=== PATIENT | male | born 1950 | race Caucasian/White ===

== ENCOUNTER 2023-04-29 10:07 | Emergency (ER) | payer OTHER, SELFPAY ==
[2023-04-29 10:08] VITALS: BP 169/56; PULSE 63; RESP 18; TEMP 36.5; O2SAT 98; BMI 28.1
--- NOTE | 2023-04-29 10:19 | CT_ITS ---
STUDY: CT ABDOMEN AND PELVIS WITH CONTRAST REASON FOR EXAM: Male, 72 years old. Rectal bleeding RADIATION DOSAGE (If Supplied By Facility): CTDIvol = ( 16.82 ) mGy, DLP = ( 911.56 ) mGycm TECHNIQUE: Transaxial images were obtained from the dome of the diaphragm to the symphysis pubis without oral contrast. IV 100mL Isovue-300 was administered. Sagittal and coronal images were reconstructed. Individualized dose optimization techniques were used for this CT. COMPARISON: None. FINDINGS: The visualized lung bases are unremarkable. Coronary calcification. Normal liver. Normal gallbladder and extrahepatic biliary system. Normal spleen. Normal pancreas. Normal bilateral adrenal glands. There is a 1.8 cm cyst in the upper pole of the right kidney. Punctate nonobstructive calculus is seen in the mid pole calyx of the right kidney posteriorly. There is a 4.1 cm cyst in the inferior pole of the right kidney. 1 cm cyst in the lower pole of the left kidney. There is a small hiatal hernia. Normal small intestine. There are multiple colonic diverticula consistent with diverticulosis. The appendix is visualized and appears normal. There is diffuse atherosclerotic calcification of the abdominal aorta and its major visceral branches, without a demonstrated aneurysm. 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 Normal inferior vena cava. Normal retroperitoneum. Normal urinary bladder. There is a left-sided inguinal hernia containing adipose tissue. There are degenerative changes of the visualized lumbar spine. CT/Abdomen/Pelvis W IV Cont ONLY IMPRESSION: Sigmoid diverticulosis without radiographic evidence of diverticulitis. Right renal cysts. Punctate calculus in the right kidney. Electronically Signed: Jamie Kate MD at 12:28 EST ,
--- NOTE | 2023-04-29 10:20 | EDS_ITS ---
HPI HPI - GI History of Present Illness Chief Complaint: GI Bleed Detail of Chief Complaint: Rectal bleeding Informant: patient Narrative Narrative: Patient presents to the emergency department with complaint of bright red blood per rectum this morning. Patient first noticed around 8 AM. Has had about 6 or 8 episodes of bright red blood. He denies abdominal pain. He denies feeling lightheaded or dizzy. Patient not on blood thinners other than a baby aspirin. Last colonoscopy was about 6 years ago. Patient has history of diverticulosis. PFSH PFSH Home Medications amlodipine 10 mg tablet 10 mg PO DAILY 09/23/14 [History Last Taken 09/22/14] aspirin 81 mg chewable tablet 81 mg PO DAILY@0800 09/23/14 [History Last Taken 09/22/14] atenolol 100 mg tablet 100 mg PO DAILY 09/23/14 [History Last Taken 09/22/14] hydrochlorothiazide 12.5 mg capsule 12.5 mg PO DAILY 09/23/14 [History Last Taken 09/22/14] lisinopril 40 mg tablet 40 mg PO DAILY 09/23/14 [History Last Taken 09/22/14] potassium chloride 10 mEq tablet,extended release (Klor-Con) 20 meq PO DAILY 09/23/14 [History Last Taken 09/22/14] pravastatin 40 mg tablet 40 mg PO QHS 09/23/14 [History Last Taken 09/22/14] ceftriaxone 2 gram solution for injection 2 g IV Q24 09/28/14 [History Last Taken 09/27/14] Allergy/AdvReac Type Severity Reaction Status Date / Time tramadol [From [facility]] Allergy PT UNSURE Verified 04/29/23 10:09 OF REACTION Social History Smoking Status: Never smoker ROS ROS ED Review of Systems ROS Unobtainable: other Constitutional Constitutional ED: Reports lethargy; Denies chills, fever(s), sweats or weight loss Eyes Eyes: Denies blurry vision, change in vision or diplopia ENT ENT ED: Denies rhinorrhea or sore throat Cardiovascular Cardiovascular: Denies chest pain, orthopnea or racing heartbeat Respiratory/Chest Respiratory/Chest: Denies cough, dyspnea, dyspnea on exertion, orthopnea or sputum Gastrointestinal Gastrointestinal: Reports other Details: Bright red blood per rectum ; Denies abdominal pain, diarrhea, nausea or vomiting Genitourinary Genitourinary ED: Denies dysuria, hematuria or urinary frequency Musculoskeletal Musculoskeletal: Denies arthralgias, back pain, myalgias or neck pain Integumentary Denies abscess, Abrasions or rash Neurologic Neurologic: Denies headache(s) or weakness Psychiatric Psychiatric: Denies anxiety, depression or suicidal thoughts Endocrine Endocrinology: Denies polydipsia, polyphagia or polyuria Hematologic/Lymphatic Hematologic/Lymphatic: Denies easy bleeding, easy bruising or lymphadenopathy Allergic/Immunologic Allergic/Immunologic ED: Denies mouth swelling, tongue swelling or urticaria EXAM Physical Exam Const Vital Signs: 04/29/23 10:08 04/29/23 10:45 Temperature 97.7 F L Temperature Source Temporal Pulse Rate 63 Pulse Rate [Lying] 53 L Pulse Rate [Sitting (for 1 minute prior to obtaining)] 52 L Pulse Rate [Standing (for 1 minute prior to obtaining)] 57 L Respiratory Rate 18 Blood Pressure 169/56 H Blood Pressure [Lying] 147/51 H Blood Pressure [Sitting (for 1 minute prior to obtaining)] 151/51 H Blood Pressure [Standing (for 1 minute prior to obtaining)] 134/52 H Blood Pressure Mean 93 Blood Pressure Mean [Lying] 83 Blood Pressure Mean [Sitting (for 1 minute prior to obtaining)] 84 Blood Pressure Mean [Standing (for 1 minute prior to obtaining)] 79 Pulse Ox 98 Oxygen Delivery Method Room Air Positive well nourished and well developed General Appearance ED: well developed and NAD HEENT Reports TM's clear and moist mucous membranes normocephalic and atraumatic; Negative for trauma or tenderness Tympanic Membrane ED: Yes TM's clear Eyes PERRL and EOMs intact bilaterally General Eye ED: Negative for pale conjunctiva or scleral icterus Neck no lymphadenopathy, supple and no JVD General: Negative for tenderness Chest Wall inspection of chest normal and palpation of chest normal Chest: Negative for tenderness Resp normal respiratory effort and clear to auscultation bilaterally Effort and Inspection: Negative for respiratory distress or pain with movement Auscultation: Negative for rhonchi, wheezes or diminished lung sounds Cardio regular rate, regular rhythm, S1 normal heart sound, S2 normal heart sound and no murmurs Peripheral Pulses: pulses 2+ throughout GI normal to inspection, nondistended, normoactive bowel sounds, soft to palpation, non-tender, non-distended and no masses GI Narrative: Rectal exam performed-no hemorrhoids or fissures noted. On digital rectal exam no masses palpated within the rectal vault. Patient had maroon-colored stool. Back/Spine no CVA tenderness and no thoracic nor lumbar tenderness Extremity normal to inspection General Extremety ED: Negative for edema General Extremity: Negative for edema Neuro oriented x3, CN's II-XII intact bilaterally, no sensory deficits noted and gait normal Sensorium / Orientation: awake, alert, oriented to person, oriented to place and oriented to time Motor Exam: strength 5/5 throughout and strength abnormal Psych mental status grossly normal Skin no rashes or lesions noted and no wounds MDM MDM MDM Narrative Medical decision making narrative: Patient presents with rectal bleeding that started this morning. Patient has known history of diverticular disease. IV line established on arrival. CBC with differential obtained showed a white count of 8.5 with hemoglobin of 14 and platelet count of 182. Orthostatic vital signs obtained were normal. Chemistries unremarkable. BUN was 16 and creatinine 1.18. Lactate normal at 1.4. CT scan of the abdomen pelvis showed diverticulosis but no evidence of diverticulitis. Case discussed with general surgeon on-call Dr. Trujillo who would be happy to see patient as an outpatient for follow-up. Reevaluated patient at 1355 and he has had no further rectal bleeding. Clinically he looks well. Advised him to return if persistent heavy bleeding, lightheadedness, severe abdominal pain, or condition should worsen anyway. He will otherwise follow-up with general surgery to have follow-up colonoscopy. I suspect patient likely having diverticular bleed. Lab Data Attestation: I reviewed the patient's lab results. Labs: Laboratory Results - last 24 hr 04/29/23 10:40 WBC 8.5 RBC 5.02 Hgb 14.1 Hct 43.1 MCV 85.9 MCH 28.1 MCHC 32.7 RDW Std Deviation 38.3 RDW Coeff of Marisa 12.3 Plt Count 182 MPV 8.8 Immature Gran % (Auto) 0.400 Neut % (Auto) 74.1 H Lymph % (Auto) 15.9 L Mobile % (Auto) 7.3 Eos % (Auto) 1.6 Baso % (Auto) 0.7 Absolute Neuts (auto) 6.3 Absolute Lymphs (auto) 1.36 Nucleated RBC % 0 Sodium 141 Potassium 3.6 Chloride 106 Carbon Dioxide 29.0 Anion Gap 6 BUN 16 Creatinine 1.18 Estim Creat Clear Calc 58.43 Est GFR (MDRD) Af Amer 78 Est GFR (MDRD) Non-Af 64 BUN/Creatinine Ratio 13.6 Glucose 171 H Lactic Acid 1.4 Calcium 8.9 Blood Type O NEGATIVE Antibody Screen NEGATIVE Radiography Diagnostic Testing: Clinical Impression(s) from Imaging Studies Abdomen/Pelvis CT 04/29/23 10:19 IMPRESSION: Sigmoid diverticulosis without radiographic evidence of diverticulitis. Right renal cysts. Punctate calculus in the right kidney. Electronically Signed: Jamie Kate MD at 12:28 EST , Discharge Plan Triage Chief Complaint: GI Bleed ED Provider: Abhay Jacome Dx/Rx/DC Orders Clinical Impression: Acute lower GI hemorrhage Instructions: ED Lower GI Bleeding (Stable) Prescriptions: No Action pravastatin 40 MG tablet 40 mg PO QHS Patient Comments: cholesterol atenolol 100 MG tablet 100 mg PO DAILY Patient Comments: blood pressure potassium chloride [Klor-Con 10] 10 MEQ tablet extended release 20 meq PO DAILY Patient Comments: supplement amlodipine 10 MG tablet 10 mg PO DAILY Patient Comments: blood pressure hydrochlorothiazide 12.5 MG capsule 12.5 mg PO DAILY Patient Comments: diuretic aspirin 81 MG tablet,chewable 81 mg PO DAILY@0800 Patient Comments: anti-platelet lisinopril 40 MG tablet 40 mg PO DAILY Patient Comments: blood pressure ceftriaxone 2 GM recon soln 2 g IV Q24 Primary Care Provider: Care Physician,No Primary Referrals: Wilfrido Trujillo MD [Med Staff - Active Staff] - 3-5 Days NOT,DEFINED [Non-Staff] - Disposition Disposition: Home, Self Care Discharge Date/Time: 04/29/23 14:25
[2023-04-29] MEDS: 0.9% Normal Saline (1000mL) 1,000 ML 125 ML IV (10:42)
[2023-04-29 10:45] VITALS: BP 134/52; BP 147/51; BP 151/51; PULSE 52; PULSE 53; PULSE 57
[2023-04-29 10:54] LABS: Absolute Lymphocyte Count 1.36 X10^3/uL (0.83-4.51); Absolute Neutrophil Count 6.3 X10^3/uL (2.0-7.7); Basophil# 0.06 X10^3/uL; Basophil% 0.7 % (0-1); Eosinophil# 0.14 X10^3/uL; Eosinophils% 1.6 % (0-5); Hematocrit 43.1 % (40-54); Hemoglobin 14.1 g/dL (13.0-16.5); Lymphocyte # 1.36 X10^3/ul (0.83-4.51); Lymphocyte % 15.9 % (19-41); Mean Corp Hgb Conc 32.7 g/dL (32-36); Mean Corpuscular Hgb 28.1 pg (27.0-32.0); Mean Corpuscular Volume 85.9 fL (80-94); Mean Platelet Vol. 8.8 fl (6.2-12.0); Monocyte# 0.62 X10^3/uL; Monocyte% 7.3 % (0-10); NRBC Flagged by Analyzer 0 % (0-5); Neutrophil # 6.33 X10^3/uL (2.7-7.7); Neutrophil % 74.1 % (47-70); Platelet Count 182 K/mm3 (150-450); RBC Distribution Width CV 12.3 % (11.6-14.6); RBC Distribution Width SD 38.3 fl (35.1-43.9); Red Blood Count 5.02 M/mm3 (4.6-6.2); White Blood Count 8.5 K/mm3 (4.4-11.0)
[2023-04-29 11:00] LABS: Anion Gap 6 (5-15); BUN 16 mg/dL (7-18); BUN/Creat Ratio 13.6 RATIO (10-20); Calcium,Total 8.9 mg/dL (8.5-10.1); Chloride 106 mmol/L (98-107); Creatinine, Serum 1.18 mg/dL (0.70-1.30); EST Glomerular Filtration Rate 64 mL/min (>60); Est Glom Filt Rate - Afr Amer 78 mL/min (>60); Estimated Creatinine Clearance 58.43 ml/min; Glucose 171 mg/dL (74-106); Potassium 3.6 mmol/L (3.5-5.1); Sodium Level 141 mmol/L (136-145)
[2023-04-29 11:23] LABS: Lactic Acid 1.4 mmol/L (0.4-1.9)
== END 2023-04-29 14:25 | disposition home or self-care (01) ==
PROVIDERS: Emergency Provider Emergency Medicine; Visit Provider Emergency Medicine
DX: K92.2 Gastrointestinal hemorrhage, unspecified (principal)
CPT/HCPCS: 74177; 80048; 83605; 85025; 86850; 86900; 86901; 99283; J7030; Q9967; A4216

== ENCOUNTER 2023-05-27 05:27 | Day surgery (SDC) | payer MEDICARE, SELFPAY ==
--- OUTSIDE RECORDS SUMMARY | 2023-05-27 05:39 | XMS RPT_ITS | CCD ---
Author Name Unknown Address [address] [place] [address] Organization [facility] Care Team Providers Care Fast Food Worker Name Role Phone Yahir VALENCIA, Katheryn Unavailable Violeta RENEEN.RIM FIRE PRIMING TOOL SETTER, DNP, [place] Primary Care Provider Yahir VALENCIA, Katheryn Unavailable Elma Jung MD Primary Care Provider Elma Jung MD Primary Care Provider Yahir VALENCIA, Katheryn Unavailable Elma Jung MD Primary Care Provider Katheryn Sinclair RN Unavailable ELMA JUNG Primary Care Unavailable HILD, FELISHA Attending Unavailable OMKAR, FELISHA Admitting Unavailable ELMA JUNG Primary Care Unavailable HILD, FELISHA Referring Unavailable ELMA JUNG Primary Care Unavailable OMKAR, FELISHA Attending Unavailable ELMA JUNG Primary Care Unavailable PAMELA GAVIN Attending Unavailable ELMA JUNG Primary Care Unavailable GEMMA SCHERER Attending Unavailab le ELMA JUNG Primary Care Unavailable ELMA JUNG Attending Unavailable ELMA JUNG Primary Care Unavailable ELMA JUNG Referring Unavailable ELMA JUNG Primary Care Unavailable PAMELA GAVIN Attending Unavailable ELMA JUNG Primary Care Unavailable PAMELA, GAVIN Referring Unavailable ELMA JUNG Primary Care Unavailable PAMELA GAVIN Referring Unavailable ELMA JUNG Primary Care Unavailable Brigid PÉREZ Referring Unavailable JUAN MANUEL VUONG Attending Unavailable ELMA JUNG Primary Care Unavailable Brigid PÉREZ Attending Unavailable ELMA JUNG Primary Care Unavailable Brigid PÉREZ Referring Unavailable ELMA JUNG Primary Care Unavailable ELMA JUNG Referring Unavailable GIOVANA SOLER Attending Unavailable ELMA JUNG Primary Care Unavailable ELMA JUNG Referring Unavailable Augustine'GIOVANA BOWEN Attending Unavailable ELMA JUNG Primary Care Unavailable FELISHA BRICENO Attending Unavailable ELMA JUNG Primary Care Unavailable OMKAR FELISHA Referring Unavailable ELMA JUNG Primary Care Unavailable ELMA JUNG Primary Care Unavailable Brigid PÉREZ Referring Unavailable ELMA JUNG Primary Care Unavailable Brigid PÉREZ Attending Unavailable ELMA JUNG Primary Care Unavailable Allergies Allergy Classification Reported Allergen(s) Allergy Type Date of Onset Reaction(s) Facility (20 sources) Sertraline; Translations: [SERTRALINE HCL] Drug Allergy 5 [facility] Work Phone: (20 sources) traMADol; Translations: [TRAMADOL HCL] Drug Allergy 0 [facility] (20 sources) ENVIORMENTAL [Other] Propensity to adverse reactions 5 [facility] Work Phone: (1 source) OTHER; Translations: [OTHER] Propensity to adverse reactions (disorder) 5 [facility] Medications Current Medications Medication Drug Class(es) Dates Sig (Normalized) Sig (Original) acetaminophen 300 mg / codeine phosphate 30 mg oral tablet (2 sources) Opioid Agonist Start: 04-04-2023 End: 04-11-2023 take 1 tablet by mouth every six hours as needed acetaminophen-cod eine (TYLENOL-COD #3) 300-30 mg per tablet Indications: Right hamstring injury, subsequent encounter Take 1 tablet by mouth every 6 hours as needed for up to 7 days. 28 tablet 0 04/04/2023 04/11/2023 Active Completed/Discontinued Medications Medication Drug Class(es) Dates Sig (Normalized) Sig (Original) aspirin 81 mg chewable tablet (20 sources) Platelet Aggregation Inhibitor, Nonsteroidal Anti-inflammatory Drug Start: 02-01-2015 take 1 tablet by mouth once daily aspirin 81 mg chewable tablet Take 1 tablet by mouth once daily. 0 02/01/2015 Active Problems Active Problems Problem Classification Problem Date Documented Da te Episodic/Chronic Anxiety disorders (20 sources) Generalized anxiety disorder; Translations: [Generalized anxiety disorder] Onset: 05-07-2007 10-30-2014 Chronic Coronary atherosclerosis and other heart disease (20 sources) Coronary arteriosclerosis; Translations: [Atherosclerotic heart disease of [place] coronary artery without angina pectoris] Onset: 08-09-2013 06-18-2021 Chronic Diabetes mellitus without complication (20 sources) Type 2 diabetes mellitus without complication; Translations: [Type 2 diabetes mellitus without complications] Onset: 01-26-2015 01-26-2015 Chronic Disorders of lipid metabolism (20 sources) Hyperlipidemia; Translations: [Hyperlipidemia, unspecified] Onset: 11-28-2015 11-28-2015 Chronic Essential hypertension (20 sources) Hypertensive disorder; Translations: [Essential (primary) hypertension] Onset: 11-03-2006 06-18-2021 Chronic Genitourinary symptoms and ill-defined conditions (1 source) Microscopic hematuria; Translations: [Other microscopic hematuria] Episodic Heart valve disorders (20 sources) Mixed aortic valve disease; Translations: [Nonrheumatic aortic (valve) stenosis with insufficiency] Onset: 10-26-2014 06-18-2021 Chronic Hyperplasia of prostate (2 sources) Benign prostatic hyperplasia; Translations: [Benign prostatic hyperplasia without lower urinary tract symptoms] Onset: 05-17-2022 Chronic Immunizations and screening for infectious disease (1 source) Exposure to streptococcal pharyngitis; Translations: [Contact with and (suspected) exposure to other bacterial communicable diseases] Episodic Inflammatory conditions of male genital organs (2 sources) Epididymitis; Translations: [Epididymitis] Episodic Influenza (1 source) Influenza due to Influenza A virus; Translations: [Influenza due to other identified influenza virus with other respiratory manifestations] Episodic Miscellaneous mental health disorders (2 sources) Chronic insomnia; Translations: [Psychophysiologic insomnia] Chronic Other connective tissue disease (1 source) Plantar fasciitis; Translations: [Plantar fascial fibromatosis] Episodic Other connective tissue disease (6 sources) Pain in right foot; Translations: [Pain in right foot] Episodic Other connective tissue disease (1 source) Capsulitis; Translations: [Other enthesopathies, not elsewhere classified] Episodic Other diseases of veins and lymphatics (1 source) Varicocele; Translations: [Scrotal varices] 01-27-2023 Episodic Other hereditary and degenerative nervous system conditions (20 sources) Essential tremor; Translations: [Essential tremor] Onset: 09-13-2016 09-13-2016 Chronic Other injuries and conditions due to external causes (1 source) Injury of right foot; Translations: [Unspecified injury of right foot, sequela] Episodic Other injuries and conditions due to external causes (6 sources) Hamstring injury; Translations: [Unspecified injury of muscle, fascia and tendon of the posterior muscle group at thigh level, right thigh, subsequent encounter] Onset: 05-13-2023 04-04-2023 Episodic Other injuries and conditions due to external causes (1 source) Unspecified injury of muscle, fascia and tendon of the posterior muscle group at thigh level, right thigh, sequela; Translations: [Right hamstring injury, sequela] Onset: 05-13-2023 Episodic Other injuries and conditions due to external causes (1 source) Unspecified injury of muscle, fascia and tendon of the posterior muscle group at thigh level, right thigh, subsequent encounter; Translations: [Right hamstring injury, subsequent encounter] Onset: 04-04-2023 Episodic Other lower respiratory disease (2 sources) Cough; Translations: [Cough] Episodic Other lower respiratory disease (1 source) Persistent cough; Translations: [Persistent cough] Episodic Other male genital disorders (2 sources) Pain of left testicle; Translations: [Left testicular pain] Episodic Other male genital disorders (1 source) Pain in testicle; Translations: [Testicular pain, unspecified] 01-27-2023 Episodic Other non-traumatic joint disorders (7 sources) Pain in left knee; Translations: [Pain in joint, lower leg] Onset: 08-19-2022 01-27-2023 Episodic Other non-traumatic joint disorders (1 source) Pain in right knee; Translations: [Acute pain of right knee] Onset: 05-13-2023 Episodic Other skin disorders (1 source) Multiple actinic keratoses; Translations: [Actinic keratosis] Episodic Other skin disorders (1 source) Actinic keratosis; Translations: [Actinic keratosis] 01-27-2023 Episodic Other upper respiratory infections (1 source) Bacterial sinusitis; Translations: [Chronic sinusitis, unspecified] Chronic Other upper respiratory infections (3 sources) Sore throat symptom; Translations: [Acute pharyngitis, unspecified] Episodic Residual codes; unclassified (20 sources) Daytime somnolence; Translations: [Other hypersomnia] Onset: 11-04-2018 11-04-2018 Chronic Residual codes; unclassified (20 sources) Obstructive sleep apnea syndrome; Translations: [Obstructive sleep apnea (adult) (pediatric)] Onset: 12-29-2018 01-12-2019 Chronic Spondylosis; intervertebral disc disorders; other back problems (20 sources) Cervical spondylosis without myelopathy; Translations: [Spondylosis without myelopathy or radiculopathy, cervical region] Onset: 07-15-2014 10-30-2014 Chronic Unclassified (20 sources) SUMMARY Onset: 11-07-2014 11-09-2014 Unclassified (20 sources) DISPOSITION AND FOLLOW-UP Onset: 11-07-2014 06-18-2021 Past or Other Problems Problem Classification Problem Date Documented Date Episodic/Chronic Complication of device; implant or graft (20 sources) Prosthetic valve endocarditis; 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, initial encounter] Onset: 10-20-2014 06-18-2021 Episodic Other and unspecified benign neoplasm (20 sources) Neuroma of foot; Translations: [Benign neoplasm of peripheral nerves and autonomic nervous system of lower limb, including hip] Onset: 02-21-2022 Episodic Other and unspecified benign neoplasm (1 source) Benign neoplasm of peripheral nerves and autonomic nervous system of lower limb, including hip; Translations: [Neuroma of foot] Onset: 02-21-2022 Episodic Other connective tissue disease (20 sources) Metatarsalgia of right foot; Translations: [Metatarsalgia, right foot] Onset: 09-13-2016 09-13-2016 Episodic Other connective tissue disease (20 sources) Iliotibial band friction syndrome of left knee; Translations: [Iliotibial band syndrome, left leg] Onset: 08-19-2022 Episodic Other connective tissue disease (1 source) Iliotibial band syndrome, left leg; Translations: [It band syndrome, left] Onset: 08-19-2022 Episodic Other connective tissue disease (1 source) Pain in right foot; Translations: [Right foot pain] Onset: 06-05-2022 Episodic Other non-epithelial cancer of skin (20 sources) Basal cell carcinoma of lower extremity; Translations: [Basal cell carcinoma of skin of unspecified lower limb, including hip] Onset: 11-05-2014 06-18-2021 Episodic Other non-traumatic joint disorders (20 sources) Bilateral shoulder joint pain; Translations: [Pain in right shoulder] Onset: 06-05-2015 06-05-2015 Episodic Other non-traumatic joint disorders (20 sources) Hip pain; Translations: [Pain in left hip] Onset: 08-19-2022 Episodic Other non-traumatic joint disorders (1 source) Pain in left hip; Translations: [Left hip pain] Onset: 08-12-2022 Episodic Other screening for suspected conditions (not mental disorders or infectious disease) (20 sources) Patient encounter status; Translations: [Encounter for screening for malignant neoplasm of colon] Onset: 09-11-2017 09-11-2017 Episodic Sprains and strains (20 sources) Strain of muscle and/or tendon of thigh; Translations: [Strain of adductor muscle, fascia and tendon of left thigh, initial encounter] Onset: 09-13-2016 09-13-2016 Episodic Substance-related disorders (20 sources) Narcotic drug user; Translations: [Opioid use, unspecified, uncomplicated] Onset: 07-27-2015 06-18-2021 Episodic Results Test Name Value Interpretation Reference Range Facil ity Vital Signs Date Time Vital Sign Value Performing Clinician Brianna javier 05-13-2023 10:00-0500 Diastolic blood pressure 72 mm[Hg] Juan Manuel Golias PT Work Phone: [facility] 05-13-2023 10:00-0500 Heart rate 61 /min Juan Manuel Golias PT Work Phone: [facility] 05-13-2023 10:00-0500 Systolic blood pressure 152 mm[Hg] Juan Manuel Golias PT Work Phone: [facility] 04-04-2023 08:24-0400 Body weight 88.91 kg NA Pérez PA-C Work Phone: [facility] 04-04-2023 08:24-0400 Diastolic blood pressure 62 mm[Hg] NA Pérez PA-C Work Phone: [facility] 04-04-2023 08:24-0400 Heart rate 53 /min NA Pérez PA-C Work Phone: [facility] 04-04-2023 08:24-0400 SaO2% (BldA) [Mass fraction] 96 % NA Pérez PA-C Work Phone: [facility] 04-04-2023 08:24-0400 Systolic blood pressure 142 mm[Hg] NA Pérez PA-C Work Phone: [facility] 02-28-2023 09:57-0400 Diastolic blood pressure 66 mm[Hg] Gavin Pamela MATERIAL MANAGER.RIM FIRE PRIMING TOOL SETTER Work Phone: [facility] 02-28-2023 09:57-0400 Systolic blood pressure 130 mm[Hg] Gavin Pamela MATERIAL MANAGER.RIM FIRE PRIMING TOOL SETTER Work Phone: [facility] 02-28-2023 09:28-0400 Heart rate 54 /min Gavin Pamela MATERIAL MANAGER.RIM FIRE PRIMING TOOL SETTER Work Phone: [facility] 02-28-2023 09:19-0400 Body weight 88.45 kg Gavin Pamela MATERIAL MANAGER.RIM FIRE PRIMING TOOL SETTER Work Phone: [facility] 02-28-2023 09:19-0400 Respiratory rate 16 /min Gavin Pamela MATERIAL MANAGER.RIM FIRE PRIMING TOOL SETTER Work Phone: [facility] 02-28-2023 09:19-0400 SaO2% (BldA) [Mass fraction] 98 % Gavin Pamela MATERIAL MANAGER.RIM FIRE PRIMING TOOL SETTER Work Phone: [facility] 01-27-2023 08:15-0400 Diastolic blood pressure 78 mm[Hg] Gavin Pamela MATERIAL MANAGER.RIM FIRE PRIMING TOOL SETTER Work Phone: [facility] 01-27-2023 08:15-0400 Systolic blood pressure 150 mm[Hg] Gavin Pamela MATERIAL MANAGER.RIM FIRE PRIMING TOOL SETTER Work Phone: [facility] 01-27-2023 07:50-0400 Body weight 89.45 kg Gavin Pamela MATERIAL MANAGER.RIM FIRE PRIMING TOOL SETTER Work Phone: [facility] 01-27-2023 07:50-0400 Heart rate 60 /min Gavin Pamela MATERIAL MANAGER.RIM FIRE PRIMING TOOL SETTER Work Phone: [facility] 01-27-2023 07:50-0400 Respiratory rate 16 /min Gavin Pamela MATERIAL MANAGER.RIM FIRE PRIMING TOOL SETTER Work Phone: [facility] 01-27-2023 07:50-0400 SaO2% (BldA) [Mass fraction] 97 % Gavin Pamela MATERIAL MANAGER.RIM FIRE PRIMING TOOL SETTER Work Phone: [facility] 11-25-2022 08:18-0400 Body temperature 98.1 [degF] Amelia Praisler-Wood MATERIAL MANAGER.RIM FIRE PRIMING TOOL SETTER Work Phone: [facility] 11-25-2022 08:18-0400 Body weight 84.82 kg Amelia Praisler-Wood MATERIAL MANAGER.RIM FIRE PRIMING TOOL SETTER Work Phone: [facility] 11-25-2022 08:18-0400 Diastolic blood pressure 68 mm[Hg] Amelia Praisler-Wood MATERIAL MANAGER.RIM FIRE PRIMING TOOL SETTER Work Phone: [facility] 11-25-2022 08:18-0400 Heart rate 96 /min Amelia Praisler-Wood MATERIAL MANAGER.RIM FIRE PRIMING TOOL SETTER Work Phone: [facility] 11-25-2022 08:18-0400 Respiratory rate 16 /min Amelia Praisler-Wood MATERIAL MANAGER.RIM FIRE PRIMING TOOL SETTER Work Phone: [facility] 11-25-2022 08:18-0400 SaO2% (BldA) [Mass fraction] 98 % Amelia Praisler-Wood MATERIAL MANAGER.RIM FIRE PRIMING TOOL SETTER Work Phone: [facility] 11-25-2022 08:18-0400 Systolic blood pressure 144 mm[Hg] Amelia Praisler-Wood MATERIAL MANAGER.RIM FIRE PRIMING TOOL SETTER Work Phone: [facility] 10-07-2022 09:53-0400 Body height 177.8 cm Pacc 3 Work Phone: [facility] 10-07-2022 09:53-0400 Body weight 83.92 kg Pacc 3 Work Phone: [facility] 08-12-2022 15:25-0500 Body weight 85.73 kg Elma Jung MD Work Phone: [facility] 08-12-2022 15:25-0500 Diastolic blood pressure 64 mm[Hg] Elma Jung MD Work Phone: [facility] 08-12-2022 15:25-0500 Heart rate 60 /min Elma Jung MD Work Phone: [facility] 08-12-2022 15:25-0500 Respiratory rate 16 /min Elma Jung MD Work Phone: [facility] 08-12-2022 15:25-0500 Systolic blood pressure 138 mm[Hg] Elma Jung MD Work Phone: [facility] 06-26-2022 16:41-0500 Body temperature 98.1 [degF] Gemma Scherer MD Work Phone: [facility] 06-26-2022 16:41-0500 Body weight 85.28 kg Gemma Scherer MD Work Phone: [facility] 06-26-2022 16:41-0500 Diastolic blood pressure 66 mm[Hg] Gemma Scherer MD Work Phone: [facility] 06-26-2022 16:41-0500 Heart rate 57 /min Gemma Scherer MD Work Phone: [facility] 06-26-2022 16:41-0500 Respiratory rate 16 /min Gemma Scherer MD Work Phone: [facility] 06-26-2022 16:41-0500 SaO2% (BldA) [Mass fraction] 98 % Gemma Scherer MD Work Phone: [facility] 06-26-2022 16:41-0500 Systolic blood pressure 134 mm[Hg] Gemma Scherer MD Work Phone: [facility] 06-18-2022 08:04-0500 Body temperature 98.71 [degF] Mayco Green APRN.CNP Work Phone: [facility] 06-18-2022 08:04-0500 Body weight 85.55 kg Mayco Green MATERIAL MANAGER.RIM FIRE PRIMING TOOL SETTER Work Phone: [facility] 06-18-2022 08:04-0500 Diastolic blood pressure 66 mm[Hg] Mayco Green MATERIAL MANAGER.RIM FIRE PRIMING TOOL SETTER Work Phone: [facility] 06-18-2022 08:04-0500 Heart rate 63 /min Mayco Green MATERIAL MANAGER.RIM FIRE PRIMING TOOL SETTER Work Phone: [facility] 06-18-2022 08:04-0500 Respiratory rate 18 /min Mayco Green MATERIAL MANAGER.RIM FIRE PRIMING TOOL SETTER Work Phone: [facility] 06-18-2022 08:04-0500 SaO2% (BldA) [Mass fraction] 98 % Mayco Green MATERIAL MANAGER.RIM FIRE PRIMING TOOL SETTER Work Phone: [facility] 06-18-2022 08:04-0500 Systolic blood pressure 130 mm[Hg] Mayco Green MATERIAL MANAGER.RIM FIRE PRIMING TOOL SETTER Work Phone: [facility] 04-30-2022 14:07-0500 Body weight 83.01 kg NA Pérez PA-C Work Phone: [facility] 04-30-2022 14:07-0500 Diastolic blood pressure 70 mm[Hg] NA Pérez PA-C Work Phone: [facility] 04-30-2022 14:07-0500 Heart rate 60 /min NA Pérez PA-C Work Phone: [facility] 04-30-2022 14:07-0500 Respiratory rate 16 /min NA Pérez PA-C Work Phone: [facility] 04-30-2022 14:07-0500 SaO2% (BldA) [Mass fraction] 96 % NA Pérez PA-C Work Phone: [facility] 04-30-2022 14:07-0500 Systolic blood pressure 132 mm[Hg] NA Pérez PA-C Work Phone: [facility] 02-18-2022 15:32-0400 Body height 177.8 cm [facility] 1 Work Phone: [facility] 02-18-2022 15:32-0400 Body temperature 98.2 [degF] Pacc 1 Work Phone: [facility] 02-18-2022 15:32-0400 Body weight 82.1 kg Pacc 1 Work Phone: [facility] 02-18-2022 15:32-0400 Diastolic blood pressure 54 mm[Hg] Pacc 1 Work Phone: [facility] 02-18-2022 15:32-0400 Heart rate 58 /min Pacc 1 Work Phone: [facility] 02-18-2022 15:32-0400 Respiratory rate 14 /min Pacc 1 Work Phone: [facility] 02-18-2022 15:32-0400 SaO2% (BldA) [Mass fraction] 96 % Pacc 1 Work Phone: [facility] 02-18-2022 15:32-0400 Systolic blood pressure 132 mm[Hg] Pacc 1 Work Phone: [facility] 02-04-2022 07:42-0400 Body temperature 97.2 [degF] Gavin Pamela MATERIAL MANAGER.RIM FIRE PRIMING TOOL SETTER Work Phone: [facility] 02-04-2022 07:42-0400 Body weight 81.65 kg Gavin Pamela MATERIAL MANAGER.RIM FIRE PRIMING TOOL SETTER Work Phone: [facility] 02-04-2022 07:42-0400 Diastolic blood pressure 70 mm[Hg] Gavin Pamela MATERIAL MANAGER.RIM FIRE PRIMING TOOL SETTER Work Phone: [facility] 02-04-2022 07:42-0400 Heart rate 60 /min Gavin Pamela MATERIAL MANAGER.RIM FIRE PRIMING TOOL SETTER Work Phone: [facility] 02-04-2022 07:42-0400 Respiratory rate 14 /min Gavin Pamela MATERIAL MANAGER.RIM FIRE PRIMING TOOL SETTER Work Phone: [facility] 02-04-2022 07:42-0400 Systolic blood pressure 138 mm[Hg] Gavinhallie Coe MATERIAL MANAGER.RIM FIRE PRIMING TOOL SETTER Work Phone: [facility] 10-24-2021 11:36-0400 Body weight 84.82 kg Tasha Avila MATERIAL MANAGER.RIM FIRE PRIMING TOOL SETTER Work Phone: [facility] 10-24-2021 11:36-0400 Diastolic blood pressure 50 mm[Hg] Tasha Avila MATERIAL MANAGER.RIM FIRE PRIMING TOOL SETTER Work Phone: [facility] 10-24-2021 11:36-0400 Heart rate 60 /min Tasha Avila MATERIAL MANAGER.RIM FIRE PRIMING TOOL SETTER Work Phone: [facility] 10-24-2021 11:36-0400 Respiratory rate 16 /min Tasha Avila MATERIAL MANAGER.RIM FIRE PRIMING TOOL SETTER Work Phone: [facility] 10-24-2021 11:36-0400 SaO2% (BldA) [Mass fraction] 97 % Tasha Avila MATERIAL MANAGER.RIM FIRE PRIMING TOOL SETTER Work Phone: [facility] 10-24-2021 11:36-0400 Systolic blood pressure 140 mm[Hg] Tasha Avila MATERIAL MANAGER.RIM FIRE PRIMING TOOL SETTER Work Phone: [facility] Encounters Encounter Date Encounter Type Care Provider Facility Start: 05-26-2023 End: 05-26-2023 ambulatory Juan Manuel Carolann PT Work Phone: [facility] Procedures Date Procedure Procedure Detail Performing Clinician Start: 06-18-2022 COVID WITH FLUA+B, ROUTINE Mayco Green MATERIAL MANAGER.RIM FIRE PRIMING TOOL SETTER Work Phone: Start: 06-18-2022 STREP A MOLECULAR (POC) [facility] Provider Start: 05-06-2022 Dup-scan artl dalia abdl/pel/scrot&/rpr orgn com M Larry Pérez PA-C Work Phone: Start: 05-06-2022 Us scrotum & contents M Larry Pérez PA-C Work Phone: Start: 02-21-2022 Njx anes&/steroid plantar common digital nerve Felisha Briceno DPM Work Phone: Start: 02-04-2022 Adult depression screening assessment Gavin Coe APRN.RIM FIRE PRIMING TOOL SETTER Work Phone: Start: 11-12-2020 Adult depression screening assessment Rene Montemayor MD Work Phone: Start: 09-22-2017 Colonoscopy Rene flores MD Work Phone: Start: 01-26-2015 History of coronary artery bypass grafting S/P CABG (coronary artery bypass graft) Rene Montemayor MD Work Phone: History of coronary artery bypass grafting S/P CABG (coronary artery bypass graft) Gavin Coe MATERIAL MANAGER.RIM FIRE PRIMING TOOL SETTER Work Phone: History of coronary artery bypass grafting S/P CABG (coronary artery bypass graft) Pac 3 Work Phone: Plan of Treatment Date Care Activity Detail Author Start: 09-23-2027 Colonoscopy COLONOSCOPY [facility] Start: 09-23-2027 COLORECTAL CANCER SCREENING COLORECTAL CANCER SCREENING [facility] Start: 04-04-2024 Annual PCP Team Chronic Disease Visit Annual PCP Team Chronic Disease Visit [facility] Start: 02-29-2024 ANNUAL PCP TEAM CHRONIC DISEASE VISIT ANNUAL PCP TEAM CHRONIC DISEASE VISIT [facility] Start: 02-01-2024 Hepatitis B screening URINE ALBUMIN:CREATININE RATIO [facility] Start: 02-01-2024 Hepatitis B surface antibody level LDL CHOLESTEROL [facility] Start: 01-28-2024 ANNUAL PCP TEAM CHRONIC DISEASE VISIT ANNUAL PCP TEAM CHRONIC DISEASE VISIT [facility] Start: 08-29-2023 End: 10-29-2023 Comprehensive metabolic 2000 panel - Serum or Plasma COMP METABOLIC PANEL Lab Routine Primary hypertension Type 2 diabetes mellitus without complication, without long-term current use of insulin (HCC) Expected: 08/29/2023 (Approximate), Expires: 10/29/[address] [facility] Work Phone: Immunizations Immunization Date Immunization Notes Care Provider Anjali de la cruz 05-09-2023 COVID-19 vaccine, ag e 12+ yr, season (MODERNA) Juan Manuel Vuong PT Work Phone: [facility] 05-09-2023 influenza, high dose seasonal, preservative-free [employer] [facility] Work Phone: [facility] 05-09-2023 respiratory syncytia l virus (RSV) vaccine, adjuvanted (AREXVY) [employer] PT Work Phone: [facility] 01-28-2022 COVID-19 vaccine, booster dose (MODERNA) Gavin Coe APRN.RIM FIRE PRIMING TOOL SETTER Work Phone: [facility] 01-28-2022 influenza (aIIV4) vaccine, age 65+ yr, quadrivalent, PF (FLUAD QUADRIVALENT) Gavin Coe MATERIAL MANAGER.RIM FIRE PRIMING TOOL SETTER Work Phone: [facility] Work Phone: 01-28-2022 influenza, high-dose , quadrivalent vaccine (FLUZONE HIGH DOSE QUADRIVALENT) Gavin Coe APRN.RIM FIRE PRIMING TOOL SETTER Work Phone: [facility] 01-28-2022 zoster vaccine recombinant Benton Mcdaniel MATERIAL MANAGER.RIM FIRE PRIMING TOOL SETTER, DNP Work Phone: [facility] 01-28-2022 influenza virus vacc ine, unspecified formulation CECIL Pérez PA-C Work Phone: [facility] 03-27-2021 influenza (aIIV4) vaccine, age 65+ yr, quadrivalent, PF (FLUAD QUADRIVALENT) Rene Montemayor MD Work Phone: [facility] Work Phone: 03-27-2021 influenza, seasonal, injectable Rene Montemayor MD Work Phone: [facility] 03-27-2021 zoster vaccine recombinant Rene Montemayor MD Work Phone: [facility] Work Phone: 09-07-2020 COVID-19 vaccine, fu ll dose (MODERNA) Rene Montemayor MD Work Phone: [facility] 08-10-2020 COVID-19 vaccine, fu ll dose (MODERNA) Rene Montemayor MD Work Phone: [facility] 04-11-2020 Influenza, injectabl e, [place]in [place] Canine Kidney, preservative free, quadrivalent Rene Montemayor MD Work Phone: [facility] Work Phone: 04-10-2020 influenza, high dose seasonal, preservative-free Rene Montemayor MD Work Phone: [facility] 07-27-2019 influenza, injectabl e, quadrivalent, preservative free Rene Montemayor MD Work Phone: [facility] Work Phone: 05-13-2018 influenza, high dose seasonal, preservative-free Rene Montemayor MD Work Phone: [facility] 03-29-2017 influenza, high dose seasonal, preservative-free Rene Montemayor MD Work Phone: [facility] 04-22-2016 influenza, high dose seasonal, preservative-free Rene Montemayor MD Work Phone: [facility] 04-22-2016 pneumococcal polysaccharide vaccine, 23 valent Rene Montemayor MD Work Phone: [facility] 05-01-2015 influenza, injectabl e, quadrivalent, contains preservative Rene Montemayor MD Work Phone: [facility] 05-01-2015 influenza, seasonal, injectable Rene Montemayor MD Work Phone: [facility] Work Phone: 02-01-2015 pneumococcal conjuga te vaccine, 13 valent Rene Montemayor MD Work Phone: [facility] Work Phone: 03-22-2014 influenza, seasonal, injectable, preservative free Rene Montemayor MD Work Phone: [facility] 07-07-2012 influenza virus vacc ine, unspecified formulation Rene Montemayor MD Work Phone: [facility] 07-07-2012 zoster vaccine, live Rene Berg MD Work Phone: [facility] 11-10-2008 tetanus toxoid, redu taylor diphtheria toxoid, and acellular pertussis vaccine, adsorbed Rene Montemayor MD Work Phone: [facility] Work Phone: Payers Date Payer Category Payer Medicare MMO MEDICARE MMO MEDADVANTAGE O [id number] 2018-Present [phone] [address] [place] [address] O [id number] 2018 Medicare MMO MEDICARE MMO MEDADVANTAGE O [id number] 2018-Present [phone] [address] [place] [address] O [id number] 2018 Unknown [id number] Social History Date Type Detail Facility Start: 09-22-2017 End: 02-04-2022 Tobacco smoking status NHIS Never smoked tobacco [facility] Work Phone: Start: 10-24-2021 End: 04-04-2023 Alcohol intake Current non-drinker of alcohol (finding) [facility] Start: 1950 Sex Assigned At Male [facility] Start: 07-07-2021 End: 05-17-2022 Exposure to SARS-CoV-2 (event) Not sure [facility] Work Phone: Start: 09-22-2017 End: 02-04-2022 Tobacco use and exposure Smokeless tobacco non-user [facility] Start: 12-06-2022 End: 01-21-2023 History of Social function [facility] Work Phone: Start: 12-06-2022 End: 01-21-2023 Social connection and isolation panel [facility] Work Phone: Active Member of u bs or Organizations Not on file [facility] Are you now , , , , never or living with a partner? [facility] Work Phone: How often to you hav e a drink containing alcohol? 2-4 times a month [facility] Work Phone: How many standard dr inks containing alcohol do you have on a typical day? 1 or 2 [facility] Work Phone: How often do you hav e 6 or more drinks on 1 occasion? Never [facility] Work Phone: Do you feel stress - tense, restless, nervous, or anxious, or unable to sleep at night because your mind is troubled all the time - these days [OSQ] Only a little [facility] Work Phone: (I/We) worried jeanine er (my/our) food would run out before (I/we) got money to buy more. Never true [facility] Work Phone: In the past 12 month s, was there a time when you were not able to pay the mortgage or rent on time? No [facility] Work Phone: Start: 11-12-2020 Gender identity Identifies as male gender (finding) [facility] Start: 11-12-2020 Sexual orientation Heterosexual (finding) [facility] Medical Equipment Procedure Code Equipment Code Equipment Origin al Text Equipment Identifier Dates Clifton Cv 4x.5in Thk1.65mm Ptfe - [id number] Start: 11-02-2014 Patch Cv Thk.25m m [id number] - [id number] Start: 11-02-2014 Clifton Cv 6x1in Thk1.65mm Ptfe - [id number] Start: 11-02-2014 Valve Aort [facility] [id number] Start: 11-02-2014 Start: 06-28-2014 Clinical Notes 07-27-2015 to 05-26-2023 Juan Manuel Vuong, PT - 05/26/2023 11:17 AM Juan Manuel Masters, PT - 05/26/2023 11:05 AM Juan Manuel Masters, PT - 05/13/2023 1:12 PM Juan Manuel Masters, PT - 05/13/2023 10:50 AM ESTPatient Instructions Note Date & Type Note Facility 05-26-2023 History of Presen t illness Narrative Episode Visit Count: 2 Therapist That Will Accept/Oversee The Plan Of Care: Juan Manuel Vuong PT Start of Care Date: 05/13/23 Onset Date: 01/10/23 (aggravated in 03/2023 when golfing) Plan of Care Certification Date: 05/13/23 Next Certification Due Date: 06/24/23 Patient Identified by Name and Date of : Yes REHABILITATION AND SPORTS THERAPY PHYSICAL THERAPY TREATMENT NOTE ASSESSMENT: Reuben Apodaca tolerated the session with decreased symptoms. He demonstrated improvements in pain and exercise compliance. The patient will continue to benefit from ongoing skilled physical therapy to progress toward set goals and for reassessment by supervising therapist. PLAN FOR NEXT VISIT: Review, correct and progress HEP to tolerance. Assess effectiveness of stretches and either continue with this approach to pes anserine area or further investigate knee and low back as possible causes. SUBJECTIVE: Pt reports that overall his medial R knee pain is unchanged. He also wonders if the medial right knee is slightly more tender. He reports that he also has some pain at medial aspect of L knee but this is much less than R. He reports compliance with HEP 3x day. He reports that L knee symptoms are only a trace. His R knee sympotms are definitely noticeable but definitely not debilitating Pain: Pain Pain Level: 2 Pain Location: Knee - Right Description: Aching, Dull Frequency: Intermittent Post Treatment Pain Post Treatment Pain Level: Better Post Treatment Symptoms: After therex and as he was leaving, pt reported that his symptoms were abolished. He reported feeling generally better after therex and walking out. OBJECTIVE MEASURES WITH LEVEL OF FUNCTION: Knee Observations R Knee Palpation Tenderness: Comments (soft tissue tenderness posterior and medial to proximal tibia B) L Knee Palpation Tenderness: Comments (soft tissue tenderness posterior and medial to proximal tibia B) LE Flexibility Flexibility: Piriformis Flexibility R Piriformis Flexibility: 40 L Piriformis Flexibility: 40 Special Tests - Hip and Spine Hip and Spine Special Tests: SLR Test SLR Test: Right Positive, Left Positive (SLR was positive B for radicular posterior LE symtpoms but neither reproduced his chief complaint of medial knee pain.) Special Tests - Knee Knee Special Tests: Seda, Juju's Test, Valgus stress at 0 degrees, Varus stress at 0 degrees Seda: Right Negative Juju's Test: Right Negative Valgus stress at 0 degrees: Right Negative Varus stress at 0 degrees: Right Negative Gait Gait Observation: Normal TREATMENT: Therapeutic Exercise: 1: [employer] StepOne seat #12 x5 minutes (Pt provided an update on his condition and plan of care reviewed.) 2: HS stretch for R medial group(IR) 3x30 seconds with emphasis on proper intensity. 3: butterfly adductor stretch 3x30 seconds 4: *supine B SKTC 3x30 seconds 5: *supine DKTC 3x30 seconds 6: Assessment data was reviewed with patient in detail and used as rationale for plan of care changes. Pt agreed and understood. Skilled Intervention: Patient was educated in proper exercise technique and purpose for exercises. Reviewed and educated patient on additions/changes for home exercise program as above (*). Skilled judgment was used in selection of appropriate interventions. Provided written instruction for home exercise program to facilitate proper performance and compliance. Correct performance of therapeutic exercises was facilitated with verbal, visual, and tactile cuing. Billing Therapeutic Exercise Treatment Minutes: 35 Skilled Treatment Time Minutes (timed and untimed codes): 35 Total Session Time (minutes): 35 Session Start Time : 1033 Session Stop Time : 1108 Juan Manuel Vuong PT Program_ID:[id number] Access Code: [email or web address] URL: [email or web address] Date: 05-26-2023 Prepared By: Juan Manuel Vuong Program Notes Exercises - Seated Table Hamstring Stretch - 3 x daily - 7 x weekly - - 3 - Butterfly Groin Stretch - 3 x daily - 7 x weekly - - 3 - Hooklying Single Knee to Chest Stretch - 3 x daily - 7 x weekly - - 3 - Supine Double Knee to Chest Modified - 3 x daily - 7 x weekly - - 3 documented in this encounter [facility] 05-13-2023 Note HNO ID: [id number] Author: Juan Manuel Vuong PT Service: ? Author Type: Physical Therapist Type: Progress Notes Filed: 05/13/2023 1:15 PM Note Text: Episode Visit Count: 1 Therapist That Will Accept/Oversee The Plan Of Care: Juan Manuel Vuong PT Start of Care Date: 05/13/23 Onset Date: 01/10/23 (aggravated in 03/2023 when golfing) Plan of Care Certification Date: 05/13/23 Next Certification Due Date: 06/24/23 Patient Identified by Name and Date of : Yes REHABILITATION AND SPORTS THERAPY PHYSICAL THERAPY EVALUATION PLAN OF CARE: Assessment: Reuben Apodaca presents with chief complaint of B knee pain, R>L that interferes with walking in the community, stair negotiation, sleeping (golfing, prolonged walking) . He presents with impairments in ADL's, balance, gait, independence in exercise, overall function, symptom management, and tissue tenderness. PROMIS? (Patient-Reported Outcomes Measurement Information System) scores were reviewed and physical function domain and self efficacy domain identified as within normal limits. Prognosis for therapy is Good due to: current objective clinical presentation, good overall health status, within-session changes, good support system/ coping skills. He will benefit from skilled therapy services to meet the goals established for this plan of care as noted below. Goals for Episode of Care: created on 05/13/23 through 06/24/23 [place] in home exercise program. Patient will decrease pain to 0/10 at rest and with functional activities to allow patient to improve ambulation, transfers, and standing tolerance for ADLs. Perform prolonged walking for dog, stairs, sleeping and golfing with decreased report of symptoms/pain in 6 weeks. Normal gait. Reciprocal stair negotiation. Patient Goals: eliminate symptoms and regain prior functional level Planned Interventions, Frequency, and Duration: Current Frequency: 1x/week Duration: 6 weeks Total Number of Visits Planned: 6 Planned Treatment Interventions: Therapeutic exercise (71560), Neuromuscular re-education (60463), Manual therapy (53334), Self-skilled nursing management (40041), Gait Training (45601), Patient/Family/Caregiver Education, Body Mechanics Training PLAN FOR NEXT VISIT: Review, correct and progress HEP to tolerance. Assess effectiveness of stretches and either continue with this approach to pes anserine area or further investigate knee and low back as possible causes. Patient demonstrates good understanding of plan of care and treatment. The above goals and plan of care were discussed and agreed upon by patient/family. SUBJECTIVE: Pt reports intermittent pain and soreness in B knees that is very mild. He reports that these symptoms stem from injury when he jumped in shallow pool and maren LEs. He reports that primary issue was sharp pain at medial R knee that was aggravated several months after injury when he was golfing in March. He reports that R knee feels aching, sore and the sensation of potential instability. R knee symptoms are entirely medial and L knee issues are less intense and at lateral aspect of knee. He reports R knee instability. 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 Cancer Clinical Reasoning: No identified risk factors. Infection Clinical Reasoning: No identified risk factors. Cauda Equina Syndrome Clinical Reasoning: No identified risk factors. Red Flags - Cervical Cancer Clinical Reasoning: No identified risk factors. Infection Clinical Reasoning: No identified risk factors. Spine History Symptoms Location at Onset: Thigh Symptoms Since Onset: Improving Pain is Worse Always: Walking (stairs) Pain is Better Sometimes: Rest Pain: Pain Pain Level: 1 (1/10 current and at worst currently but at onset and with golfing pain was 8/10) Pain Location: Knee - Right (medial aspect and distal medial R thigh) Description: Aching, Sore Frequency: Intermittent Post Treatment Pain Post Treatment Pain Level: No Change Post Treatment Symptoms: He felt that the prescribed stretches were addressing to correct structures but no symptomatic change after. PROMIS Scales Higher is Better 05/13/2023 08/31/2022 (more content not included)... [facility] 05-13-2023 History of Presen t illness Narrative Episode Visit Count: 1 Therapist That Will Accept/Oversee The Plan Of Care: Juan Manuel Vuong PT Start of Care Date: 05/13/23 Onset Date: 01/10/23 (aggravated in 03/2023 when golfing) Plan of Care Certification Date: 05/13/23 Next Certification Due Date: 06/24/23 Patient Identified by Name and Date of : Yes REHABILITATION AND SPORTS THERAPY PHYSICAL THERAPY EVALUATION PLAN OF CARE: Assessment: Reuben Apodaca presents with chief complaint of B knee pain, R>L that interferes with walking in the community, stair negotiation, sleeping (golfing, prolonged walking) . He presents with impairments in ADL's, balance, gait, independence in exercise, overall function, symptom management, and tissue tenderness. PROMIS (Patient-Reported Outcomes Measurement Information System) scores were reviewed and physical function domain and self efficacy domain identified as within normal limits. Prognosis for therapy is Good due to: current objective clinical presentation, good overall health status, within-session changes, good support system/ coping skills. He will benefit from skilled therapy services to meet the goals established for this plan of care as noted below. Goals for Episode of Care: created on 05/13/23 through 06/24/23 [place] in home exercise program. Patient will decrease pain to 0/10 at rest and with functional activities to allow patient to improve ambulation, transfers, and standing tolerance for ADLs. Perform prolonged walking for dog, stairs, sleeping and golfing with decreased report of symptoms/pain in 6 weeks. Normal gait. Reciprocal stair negotiation. Patient Goals: eliminate symptoms and regain prior functional level Planned Interventions, Frequency, and Duration: Current Frequency: 1x/week Duration: 6 weeks Total Number of Visits Planned: 6 Planned Treatment Interventions: Therapeutic exercise (18431), Neuromuscular re-education (31866), Manual therapy (75736), Self-skilled nursing management (22941), Gait Training (30937), Patient/Family/Caregiver Education, Body Mechanics Training PLAN FOR NEXT VISIT: Review, correct and progress HEP to tolerance. Assess effectiveness of stretches and either continue with this approach to pes anserine area or further investigate knee and low back as possible causes. Patient demonstrates good understanding of plan of care and treatment. The above goals and plan of care were discussed and agreed upon by patient/family. SUBJECTIVE: Pt reports intermittent pain and soreness in B knees that is very mild. He reports that these symptoms stem from injury when he jumped in shallow pool and maren LEs. He reports that primary issue was sharp pain at medial R knee that was aggravated several months after injury when he was golfing in March. He reports that R knee feels aching, sore and the sensation of potential instability. R knee symptoms are entirely medial and L knee issues are less intense and at lateral aspect of knee. He reports R knee instability. 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 Cancer Clinical Reasoning: No identified risk factors. Infection Clinical Reasoning: No identified risk factors. Cauda Equina Syndrome Clinical Reasoning: No identified risk factors. Red Flags - Cervical Cancer Clinical Reasoning: No identified risk factors. Infection Clinical Reasoning: No identified risk factors. Spine History Symptoms Location at Onset: Thigh Symptoms Since Onset: Improving Pain is Worse Always: Walking (stairs) Pain is Better Sometimes: Rest Pain: Pain Pain Level: 1 (1/10 current and at worst currently but at onset and with golfing pain was 8/10) Pain Location: Knee - Right (medial aspect and distal medial R thigh) Description: Aching, Sore Frequency: Intermittent Post Treatment Pain Post Treatment Pain Level: No Change Post Treatment Symptoms: He felt that the prescribed stretches were addressing to correct structures but no symptomatic change after. PROMIS Scales Higher is Better 05/13/2023 08/31/2022 Phys Func - Score 48 (within normal limits) 50 (within normal limits) Phys Func - Percentile 42 % 50 % Self-Eff Symptom - Score 56 (Average) 52 (Average) Self-Eff Symptom - Percentile 73 % 58 % T-scores: mean of general population = 50. 5 points is clinically meaningfully difference Percentiles provide an indication of how the patient's score ranks in relation to the general population. Higher percentile rankings indicate better function/quality of life. 50th percentile is the average of the general population and indicates half of respondents had a worse score. OBJECTIVE MEASURES WITH LEVEL OF FUNCTION: Posture / Alignment Posture: Forward head, Increased thoracic kyphosis, Rounded shoulders, Slump Knee Observations R Knee Palpation Tenderness: Pes anserinus, Medial joint line, Medial Hamstring, MCL (area distal to pes anserine is most tender at proximal medial 1/2 of tibia. Joint line tenderness is very mild.) L Knee Palpation Tenderness: Pes anserinus Sensation - Lower Extremity LE Light Touch Sensation: Grossly Intact Sensation - Lumbar Sensation: Grossly Intact Lumbar Spine AROM Lumbar Flexion: Normal Lumbar Extension: Normal Lumbar R Side-Bend: Normal Lumbar L Side-Bend: Normal Lumbar R Rotation: Normal Lumbar L Rotation: Normal Lumbar Spine AROM Comments: lumbar spine AROM did not reproduce his chief complaint in either knee LE AROM R LE AROM: supine L LE AROM: supine R Hip Internal Rotation: 39 Degrees R Knee Extension: 3 Degrees R Knee Flexion: 138 Degrees L Hip Internal Rotation: 44 Degrees L Knee Extension: 6 Degrees L Knee Flexion: 140 Degrees LE Strength R LE Strength: No asymmetrical myotomal weakness detected in B LEs. L LE Strength: No asymmetrical myotomal weakness detected in B LEs. R Knee Extension (L3): 5/5 R Knee Flexion: 5/5 L Knee Extension (L3): 5/5 L Knee Flexion: 5/5 Special Tests - Hip and Spine Hip and Spine Special Tests: SLR Test SLR Test: Right Positive, Left Positive (SLR was positive B for radicular posterior LE symtpoms but neither reproduced his chief complaint of knee pain.) Special Tests - Knee Knee Special Tests: Seda, Juju's Test, Valgus stress at 0 degrees, Varus stress at 0 degrees Seda: Right Negative, Left Negative Juju's Test: Right Negative, Left Negative Valgus stress at 0 degrees: Right Negative, Left Negative Varus stress at 0 degrees: Right Negative, Left Negative Gait Gait Observation: Normal Stairs: pt reports functional difficulties with this activity secondary to sensation of instability reported by pt. Education: Education Learning Preferences: Explanation, Demonstration, Performance, Printed Materials Barriers: None Learning/educational needs: Plan of Care, Home exercise program, Gait Training, Posture, Body Mechanics Education Provided: Yes, see treatment interventions for education provided Education Provided To: Patient Education Mode/Type: Demonstration, Explanation/Discussion, Literature/Printed Materials, Performance Response to Education/Teach Back: States/Identifies, Return Demonstration, Requires Review/Additional Education TREATMENT: PT Treatment Interventions: Therapeutic Exercise Evaluation Therapeutic Exercise: 1: Pt was educated extensively on the anatomy of symptomatic area, likely source of symptoms, findings of exam and rationale for plan of care recommended. He was repeatedly advised that he should stop any exercise or activity that causes increased pain. 2: *HS stretch for R medial group(IR) 3x30 seconds with emphasis on proper intensity. 3: *butterfly adductor stretch 3x30 seconds Skilled Intervention: Patient was educated in proper exercise technique and purpose for exercises. Reviewed and educated patient on additions/changes for home exercise program as above (*). Skilled judgment was used in selection of appropriate interventions. Provided written instruction for home exercise program to facilitate proper performance and compliance. Correct performance of therapeutic exercises was facilitated with verbal, visual, and tactile cuing. Patient education as noted. Billing * Evaluation Moderate Complexity: 1 Unit Therapeutic Exercise Treatment Minutes: 19 Skilled Treatment Time Minutes (timed and untimed codes): 49 Total Session Time (minutes): 49 Session Start Time : 1003 Session Stop Time : 1052 Juan Manuel Vuong PT Program_ID:[id number] Access Code: [email or web address] URL: [email or web address] Date: 05-13-2023 Prepared By: Juan Manuel Vuong Program Notes Exercises - Seated Table Hamstring Stretch - 3 x daily - 7 x weekly - - 3 - Butterfly Groin Stretch - 3 x daily - 7 x weekly - - 3 documented in this encounter [facility] 05-05-2023 Miscellaneous Notes Can you please help patient schedule PT. Thank you Telephone on 05/05/23 CONSULT TO PHYSICAL THERAPY Acute pain of right knee (primary encounter diagnosis) Right hamstring injury, sequela Thanks, Vicente Pérez PA-C Patient calling had seen Vicente Pérez on 04/04 for knee pain. Patient said right knee pain is not any better asking if he could have the Physical Therapy order now. Did not pend order gives lots to choose from. Please advise documented in this encounter [facility] 04-29-2023 Miscellaneous Notes Noted; agree with advised to go to ER when he is able to get there Elma Jung MD Protocol recommends go to the ER now. Pt states he won't be able to get in until 10 or 11, he can't get a ride and has work stuff he has to finish. Care plan reviewed with patient. Patient voices understanding. Advised patient that if symptoms get worse to call 911. Reason for Disposition [1] MODERATE rectal bleeding (small blood clots, passing blood without stool, or toilet water turns red) AND [2] more than once a day Answer Assessment - Initial Assessment Questions 1. APPEARANCE of BLOOD: The color is bright red in the toilet water, it passed separately, from the stool. 2. AMOUNT: The blood turned the toilet water bright red to pink each time. 3. FREQUENCY: Four times. 4. ONSET: The blood first seen in the stools this morning. 5. DIARRHEA: Pt reports there is also some diarrhea, but some formed stool x4 this morning. 6. CONSTIPATION: Denies constipation. 7. RECURRENT SYMPTOMS: Pt denies having had blood in his stool before. 8. BLOOD THINNERS: Pt takes aspirin. 9. OTHER SYMPTOMS: Pt denies abdomen pain, vomiting, dizziness, fever. 10. : N/A Protocols used: Rectal Ueacfquu-[id number]-OW documented in this encounter [facility] 04-28-2023 Miscellaneous Notes Sent. The following approved medication requests have been transmitted electronically. Requested Prescriptions Pending Prescriptions Disp Refills celecoxib (CELEBREX) 100 mg capsule 180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 Substance Use Topics Alcohol use: No Comment: RARE Drug use: No Objective Physical Exam Vitals and nursing note reviewed. Constitutional: General: He is not in acute distress. Appearance: Normal appearance. HENT: Right Ear: Tympanic membrane, ear canal and external ear normal. Left Ear: Tympanic membrane, ear canal and external ear normal. Nose: Nasal tenderness, mucosal edema, congestion and rhinorrhea present. Mouth/Throat: Mouth: Mucous membranes are moist. Pharynx: Oropharynx is clear. Uvula midline. No oropharyngeal exudate or posterior oropharyngeal erythema. Cardiovascular: Rate and Rhythm: Normal rate and regular rhythm. Heart sounds: Normal heart sounds. Pulmonary: Effort: Pulmonary effort is normal. No respiratory distress. Breath sounds: Normal breath sounds. No wheezing or rales. Comments: Frequent coughing during exam Musculoskeletal: Cervical back: Neck supple. Lymphadenopathy: Cervical: No cervical adenopathy. Skin: General: Skin is warm and dry. Findings: No erythema or rash. Neurological: Mental Status: He is alert. ASSESSMENT/PLAN: 1. Bacterial sinusitis - ICD9: 473.9, 041.9, ICD10: J32.9, B96.89 (primary diagnosis) - Will begin treatment with as per antibiotic as written, see orders - AMOXICILLIN 875 MG-POTASSIUM CLAVULANATE 125 MG TABLET 2. Viral URI with cough - ICD9: 465.9, ICD10: J06.9 - Discussed viral etiology and rationale for treatment. - Symptomatic treatment with prn analgesia - Supportive care with fluids and rest - BENZONATATE 100 MG CAPSULE - CODEINE 10 MG-GUAIFENESIN 100 MG/5 ML ORAL LIQUID - Follow-up with your PCP in 3-5 days if symptoms have not improved or sooner if symptoms worsen - Discussed red flags and need for immediate medical evaluation if any occur. - Discussed supportive care treatment with fluids, rest and analgesia. - Discussed expected course of illness Amelia Clarke APRN.RIM FIRE PRIMING TOOL SETTER documented in this encounter [facility] 11-25-2022 Instructions Amelia Clarke APRN.CNP - 11/25/2022 8:30 AM EDT ASSESSMENT/PLAN: 1. Bacterial sinusitis - ICD9: 473.9, 041.9, ICD10: J32.9, B96.89 (primary diagnosis) - Will begin treatment with as per antibiotic as written, see orders - AMOXICILLIN 875 MG-POTASSIUM CLAVULANATE 125 MG TABLET 2. Viral URI with cough - ICD9: 465.9, ICD10: J06.9 - Discussed viral etiology and rationale for treatment. - Symptomatic treatment with prn analgesia - Supportive care with fluids and rest - BENZONATATE 100 MG CAPSULE - CODEINE 10 MG-GUAIFENESIN 100 MG/5 ML ORAL LIQUID - Follow-up with your PCP in 3-5 days if symptoms have not improved or sooner if symptoms worsen - Discussed red flags and need for immediate medical evaluation if any occur. - Discussed supportive care treatment with fluids, rest and analgesia. 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 PROCEDURE(S): Radiofrequency ablation of right foot 3rd intermetatarsal space Consent on chart: Yes LABS: CBC: WBC 5.56 02/04/2022 Hemoglobin 14.4 02/04/2022 Hematocrit 44.6 02/04/2022 Platelet Count 154 02/04/2022 CMP: Sodium 141 02/04/2022 Potassium 3.7 02/04/2022 BUN 19 02/04/2022 Creatinine 1.20 02/04/2022 Glucose 121 02/04/2022 COAGS: APTT 21.6 11/02/2014 PT INR 0.9 11/05/2014 URINALYSIS: Ketones, Urine Negative 04/30/2022 Nitrites Negative 04/30/2022 Specific [place], Ur 1.025 04/30/2022 Protein, Urine Trace 04/30/2022 Leukest Negative 04/30/2022 Leukocytes 0-5 /HPF 10/29/2021 Bacteria Negative 09/03/2004 Type AND screen: N/A Medical Clearance: Yes CXR/EKG: N/A Medications/Preop Antibiotics: none ALLERGIES Allergen Reactions Enviormental [Other] Ultram [Tramadol Hc* non-specific side effects Zoloft [Sertraline * Unknown Surgical site identified: Yes NPO: Yes IV Fluids: Yes Risks and benefits, complications, treatment options, expected outcome and rehabilitation explained, patient understands. All questions were entertained and answered. Patient wishes to proceed with above procedure(s). SIGNATURE: Greg Siddiqui DPM PATIENT NAME: Reuben Apodaca DATE: October 25, 2022 TIME: 10:16 AM PAGER: [phone] Above note was reviewed and verified. Fine findings confirmed. The patient was seen and treated today with the resident physician under my personal supervision. Plan as outlined above. Felisha Briceno DPM, DABPM, FACFAS Pager: [phone] [facility] 10-10-2022 Note HNO ID: [id number] Author: Felisha Briceno DPM Service: ? Author Type: Physician Type: Progress Notes Filed: 10/10/2022 9:42 AM Note Text: PREOP EVALUATION This 72 year old patient presents to clinic today for PREOP evaluation. Plan is for surgical correction of right 3rd IMS on 10/22/22. 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 metFORMIN (GLUCOPHAGE) 500 mg tablet Take 1 tablet by mouth daily with breakfast. metoprolol tartrate, short acting, (LOPRESSOR) 50 mg tablet Take 1 tablet by mouth twice daily. traZODone (DESYREL) 100 mg tablet Take 1 tablet by mouth daily at bedtime. pravastatin (PRAVACHOL) 40 mg tablet Take 1 tablet by mouth daily at bedtime. amLODIPine (NORVASC) 10 mg tablet Take 1 tablet by mouth once daily. lisinopril (ZESTRIL, PRINIVIL) 5 mg tablet Take 1 tablet by mouth once daily. hydroCHLOROthiazide (HYDRODIURIL, ESIDRIX) 12.5 mg capsule TAKE 1 CAPSULE DAILY (DOSE ADJUSTMENT) blood sugar diagnostic (RELION PRIME TEST STRIPS) test strip Test glucose 2 x per day. Insulin use: No aspirin 81 mg chewable tablet Take 1 tablet by mouth once daily. Lancets (ONE TOUCH ULTRASOFT LANCETS) lancets Use as instructed No current facility-administered medications for this visit. ALLERGIES Allergen Reactions Enviormental [Other] Ultram [Tramadol Hc* non-specific side effects Zoloft [Sertraline * Unknown Examination: NVSI. Patient has pain to 3rd IMS R foot Assessment: Neuroma of foot (primary encounter diagnosis) Right foot pain Type 2 diabetes mellitus without complication, without long-term current use of insulin ([facility]) Plan: Discussed all treatment options with patient in detail - both conservative and surgical. The risks,complications, benefits, OR personnel and irene-op care were discussed in detail with the patient. The elective nature of the procedure was also discussed in detail with the patient. The x-rays were reviewed with the patient. Considered surgical intervention for this patient would include RFA R foot 3rd IMS. RISKS OF SURGERY INCLUDE THE FOLLOWING: Reoccurrence, swelling, numbness or nerve entrapment, joint stiffness, scar tissue formation, delayed or non healing of tissue or bone, malunion, over or under corrrection, need for additional surgery, Reflex sympathetic dystrophy, infection and even in extremely rare circumstances digital or limb amputation. Consent form signed and in chart today Felisha Briceno DPM, DABPM, FACFAS Pager: [phone] [facility] 10-10-2022 History of Presen t illness Narrative PREOP EVALUATION This 72 year old patient presents to clinic today for PREOP evaluation. Plan is for surgical correction of right 3rd IMS on 10/22/22. 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 metFORMIN (GLUCOPHAGE) 500 mg tablet Take 1 tablet by mouth daily with breakfast. metoprolol tartrate, short acting, (LOPRESSOR) 50 mg tablet Take 1 tablet by mouth twice daily. traZODone (DESYREL) 100 mg tablet Take 1 tablet by mouth daily at bedtime. pravastatin (PRAVACHOL) 40 mg tablet Take 1 tablet by mouth daily at bedtime. amLODIPine (NORVASC) 10 mg tablet Take 1 tablet by mouth once daily. lisinopril (ZESTRIL, PRINIVIL) 5 mg tablet Take 1 tablet by mouth once daily. hydroCHLOROthiazide (HYDRODIURIL, ESIDRIX) 12.5 mg capsule TAKE 1 CAPSULE DAILY (DOSE ADJUSTMENT) blood sugar diagnostic (RELION PRIME TEST STRIPS) test strip Test glucose 2 x per day. Insulin use: No aspirin 81 mg chewable tablet Take 1 tablet by mouth once daily. Lancets (ONE TOUCH ULTRASOFT LANCETS) lancets Use as instructed No current facility-administered medications for this visit. ALLERGIES Allergen Reactions Enviormental [Other] Ultram [Tramadol Hc* non-specific side effects Zoloft [Sertraline * Unknown Examination: NVSI. Patient has pain to 3rd IMS R foot Assessment: Neuroma of foot (primary encounter diagnosis) Right foot pain Type 2 diabetes mellitus without complication, without long-term current use of insulin ([facility]) Plan: Discussed all treatment options with patient in detail - both conservative and surgical. The risks,complications, benefits, OR personnel and irene-op care were discussed in detail with the patient. The elective nature of the procedure was also discussed in detail with the patient. The x-rays were reviewed with the patient. Considered surgical intervention for this patient would include RFA R foot 3rd IMS. RISKS OF SURGERY INCLUDE THE FOLLOWING: Reoccurrence, swelling, numbness or nerve entrapment, joint stiffness, scar tissue formation, delayed or non healing of tissue or bone, malunion, over or under corrrection, need for additional surgery, Reflex sympathetic dystrophy, infection and even in extremely rare circumstances digital or limb amputation. Consent form signed and in chart today Felisha Briceno DPM, DABPM, FACFAS Pager: [phone] [facility] locations documented in this encounter [facility] 10-07-2022 Instructions Brenda Del Angel PA-C - 10/07/2022 10:10 AM EDT PATIENT PREOPERATIVE INSTRUCTIONS Felisha Briceno DPM has scheduled you for your procedure at this surgery center: [facility]: [phone] --[id number] [facility], [place] [address]. Please read below carefully for your personalized instructions. Dietary Restrictions: - No solid food after midnight. - You may have 12 ounces of clear liquids (water, clear juices such as apple juice or gatorade, carbonated beverages, clear tea, black coffee, jello) until 2 hours before scheduled arrival at facility. Is Patient Diabetic:Yes Preoperative Instructions for Patient's with Diabetes Mellitus Diabetic Medication Instructions:Please take the following meds at your usual dose the day before surgery. DO NOT TAKE THE MORNING OF SURGERY; Byetta, Bydureon, Trajenta, Symlin, Victoza, Trulicity, Metformin, Actos/Pioglitazone and Amaryl/Glimepiride Insulin Medication Instructions:N/A Medications: Unless instructed differently below, stay on all of your medications until your surgery. Approved medications to take the morning of surgery with a sip of water: Metoprolol, pravastatin, amlodipine, aspirin No Lisinopril for 24 hours prior to surgery. If you take any medications for erectile dysfunction-Cialis (Tadalafil), Levitra, Staxyn (Vardenafil) Viagra (Sildenenafil please do not take these for 48 hours before surgery. If you start any new medications after today's visit, please contact the surgeon's office. Blood Thinning Medications: - Stop NSAIDS (Ibuprofen, Advil, Aleve, Motrin, Celebrex, Mobic, etc.) 7 days before surgery, as directed by your surgeon. - Stop Vitamin E, ALL multi-vitamins, herbals and dietary supplements 7 days before surgery. - You may take Tylenol (Acetaminophen) or any of your pain medications that do not contain aspirin or NSAIDS as needed. Stay on Aspirin Important Reminders: - If you use CPAP/BIPAP, bring the machine with you to the surgery center. - If you are prescribed inhalers for breathing, continue using them. - Candy, mints, and tobacco products are NOT permitted the morning of surgery. - Hearing aids, dentures and glasses may be worn the morning of surgery. - NO jewelry, body piercings, makeup, hairpins or contacts are to be worn the day of surgery. If you develop symptoms such as a fever, cold, or flu, or have other changes to your health within TWO DAYS of scheduled surgery or the morning of surgery, please contact the surgery center above. Personal Belongings: -Please have photo ID and insurance cards. -If you do not have a copy of advance directives on file with us, please bring a copy with you on the day of surgery. - Leave ALL valuables and money at home or with family members. For Outpatient Procedures: - YOU MUST HAVE A RESPONSIBLE BODY LINER TAKE YOU HOME. A CONCESSION SUPERVISOR OR CLIENT ADVISOR CANNOT BE MADE A RESPONSIBLE BODY LINER. - We recommend that a responsible person stays with you overnight to take care of you. - You cannot stay in a hotel alone after outpatient surgery. You will not be permitted to have your surgery, if you do not have someone to take care of you. Arrival Time for Surgery: - The Surgery Center or hospital where you are having surgery will call the afternoon before surgery (or Friday for Friday surgery) with a scheduled arrival time. - If you have not heard by 4 pm, please contact the surgery center above. Please be aware that emergency situations arise, which may delay or change your surgical time. If this happens, we will notify you as soon as possible and regret any inconvenience. If you already have an Advance Directive, please fax a copy to [phone] or email to for it to be added to your chart. If you do not have an Advance Directive, you can find the appropriate form and more information at [email or web address]. We recommend that you complete the Advance Directive form found on the website and bring it with you the day of your surgery. It can be witnessed and scanned into your chart that day. Brenda Del Angel PA-C documented in this encounter [facility] 10-07-2022 History and physical note PREANESTHESIA CONSULT CLINIC This is a virtual visit. It required patient-provider interaction for the medical decision making as documented below. Patient has been identified by name and date of : Yes Reason for call: PACC visit Accompanied by: Self Patient name: Reuben Apodaca This is a virtual visit using [employer] video visit. It required patient-provider interaction for the medical decision making as documented below. I have communicated my name and active licensure. The patient's identity and physical location were verified at the time of this visit. Either the patient or their legal bottling equipment sales representative has been informed of the risks and benefits of and alternatives to treatment through a remote evaluation and consents to proceed with the evaluation remotely. Scheduled Surgery: RADIOFREQUENCY ABLATION PERIPHERAL NERVE LOWER EXTREMITY CHIEF COMPLAINT: Patient presents with: Anesthesia Consult HPI: This is a 71 year old male who presents with neuroma of right foot. He reports pain over the past 1-2 years. Pain is 0/10 when sitting, but ~3/10 when walking in the morning and 6/10 by the end of the day. He had radiofrequency ablation ~02/2022 without much improvement. ACTIVE PROBLEM LIST Htn (Hypertension) Generalized Anxiety Disorder Cad (Coronary Artery Disease) Cervical Spondylosis Without Myelopathy Endocarditis of Prosthetic Valve (Hcc) Aortic Insufficiency With Aortic Stenosis Basal Cell Carcinoma of Leg SUMMARY Disposition and Follow-Up S/P Avr (Aortic Valve Replacement) and Aortoplasty S/P Cabg (Coronary Artery Bypass Graft) Type 2 Diabetes Mellitus Without Complication (Hcc) Pain of Both Shoulder Joints Spondylosis of Cervical Region Without Myelopathy Or Radiculopathy Chronic Narcotic Use Hyperlipidemia Ldl Goal <100 Coronary Artery Disease Involving [place] Coronary Artery of [place] Heart With Angina Pectoris With Documented Spasm (Hcc) Essential Tremor Strain of Adductor Muscle, Fascia and Tendon of Left Thigh, Initial Encounter Metatarsalgia of Right Foot Special Screening for Malignant Neoplasms, Colon Encounter for Screening for Malignant Neoplasm of Colon Excessive Daytime Sleepiness Coreen (Obstructive Sleep Apnea) Neuroma of Foot Left Hip Pain Iliotibial Band Syndrome, Left It Band Syndrome, Left PAST MEDICAL HISTORY Diagnosis Date Aortic valve disorders 2002 bicuspid aortic valve Cervical osteoarthritis 04/26/2010 Coronary artery disease Diabetes mellitus with neuropathy (HCC) 07/15/2014 Diverticulosis of colon (without mention of hemorrhage) 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/20/2014 Hyperlipidemia LDL goal < 100 06/09/2013 Hyperlipidemia LDL goal <100 11/28/2015 Hypertension Rotator cuff syndrome of both shoulders 07/27/2015 Skin cancer Snoring Type 2 diabetes mellitus without complication (HCC) 01/26/2015 Type II or unspecified type diabetes mellitus without mention of complication, not stated as uncontrolled Unspecified venous (peripheral) insufficiency PAST SURGICAL HISTORY Procedure Laterality Date APPENDECTOMY 08/30/92 CABG W/ARTERIAL GRAFT SINGLE ARTERIAL GRAFT 06/2001 COLONOSCOPY FLX DX W/COLLJ SPEC WHEN PFRMD 08/28/07 Extensive sigmoid diverticulosis HEART SURGERY HX LITHOTRIPSY XTRCORP SHOCK WAVE 11/06/11 Lithotripsy MAL LESION TRUNK,ARM,LEG 1.1-2.0 CM 01/07/07 Exc. left upper back lesion PAST SURGICAL HISTORY OF 1997 discectomy Lumbar PERCUTANEOUS AORTIC VALVE REPLACEMENT 2001 RMVL SEC MEMBRANOUS CTRC CORNEO-SCLL SCTJ 1998 Cataract removal WHIT (TRANSESOPHAGEAL ECHO) 09/30/14 WHIT (TRANSESOPHAGEAL ECHO) 10/27/2014 [facility] FAMILY HISTORY Problem Relation Age of Onset Coronary Artery Disease Father Heart Father Coronary Artery Disease Maternal Grandfather Social History: Social History Tobacco Use Smoking status: Never Smokeless tobacco: Never Vaping Use Vaping Use: Never used Substance Use Topics Alcohol use: No Comment: RARE Drug use: No MEDICATIONS: Current Inpatient Medications Current Outpatient Medications Medication Sig celecoxib (CELEBREX) 100 mg capsule Take 1 capsule by mouth twice daily. metFORMIN (GLUCOPHAGE) 500 mg tablet Take 1 tablet by mouth daily with breakfast. metoprolol tartrate, short acting, (LOPRESSOR) 50 mg tablet Take 1 tablet by mouth twice daily. traZODone (DESYREL) 100 mg tablet Take 1 tablet by mouth daily at bedtime. pravastatin (PRAVACHOL) 40 mg tablet Take 1 tablet by mouth daily at bedtime. amLODIPine (NORVASC) 10 mg tablet Take 1 tablet by mouth once daily. lisinopril (ZESTRIL, PRINIVIL) 5 mg tablet Take 1 tablet by mouth once daily. hydroCHLOROthiazide (HYDRODIURIL, ESIDRIX) 12.5 mg capsule TAKE 1 CAPSULE DAILY (DOSE ADJUSTMENT) aspirin 81 mg chewable tablet Take 1 tablet by mouth once daily. Lancets (ONE TOUCH ULTRASOFT LANCETS) lancets Use as instructed blood sugar diagnostic (RELION PRIME TEST STRIPS) test strip Test glucose 2 x per day. Insulin use: No No current facility-administered medications for this visit. ALLERGIES: ALLERGIES Allergen Reactions Enviormental [Other] Ultram [Tramadol Hc* non-specific side effects Zoloft [Sertraline * Unknown REVIEW OF SYSTEMS: PAIN ASSESSMENT: Pain Pain Level: 3 General: No weight loss, malaise or fevers. Neuro: No history of TIA's, stroke, DRAW PRESS OPERATOR tumor, impaired sensorium, hemiplegia, paraplegia or quadraplegia. +history of seizure 2004, diabetes related Respiratory: No history of current cough or dyspnea, or pneumonia in the past 6 weeks. +COREEN- can not tolerate CPAP Cardiovascular: +CAD- s/p CABG x1 in 2001 during valve surgery +s/p AVR and aortoplasty 2001 and redo 2014 +HTN +HLD Denies any history of chest pain or JACK[place], Denies any history of DVT/PE. Follows with PCP GI: No history of esophageal varices, recent ascites, or ETOH greater than 2 drinks per day. +h/o diverticulitis : No history of dysuria, frequency or incontinence,, or chronic kidney disease +history of renal calculi Endocrine: +DM-2, well controlled per pt Hemoglobin A1C (%) Date Value 02/04/2022 5.9 11/08/2020 5.6 Hematology: No history of bleeding or clotting disorder. Pt is not taking anti-coagulation or platelet medications. No history of hematological symptoms or problems. Oncology: No history of CA metastasis, chemo within 30 days, or radiotherapy within 90 days. Has not lost 10% of body wt in 6 months. No history of oncological symptoms or problems. Psych: No history of psychiatric symptoms or problems. Musculoskeletal: see HPI +left hip pain Skin: Negative for lesions, rash and itching. PHYSICAL EXAM: VITAL SIGNS: Ht 5' 10 (1.78m) Wt 185 lb (83.9kg) BMI 26.54 kg/(m^2). GENERAL: alert and appropriate, in no distress, well-hydrated, well nourished, and happy, smiling, interactive SKIN: no rash noted HEAD: normocephalic, no abnormality or lesion noted EYES: no injection and visual acuity is grossly normal EARS: hearing grossly normal NOSE: external nose normal without rhinorrhea OROPHARYNX: moist mucus membranes NECK: full ROM, no cervical LNs noted RESPIRATORY: breathing non-labored CHEST: equal chest rise with normal respiratory effort HEART: RRR, confirmed with radial pulse exam ABDOMEN: soft and non-tender BACK: back normal in appearance, spine with FROM NEUROLOGIC: no obvious deficit Diagnostic tests reviewed for today's visit: Lab Value Units Date High Low HB No results within date range. HCT No results within date range. WBC No results within date range. PLT No results within date range. NA No results within date range. K No results within date range. GLUC No results within date range. BUN No results within date range. CREAT No results within date range. PTSEC No results within date range. INR No results within date range. APTT No results within date range. ALT No results within date range. AST No results within date range. TBILI No results within date range. TSH No results within date range. Lab Value Units Date High Low HCGQT No results within date range. UHCG No results within date range. HCG, BODY* No results within date range. Lab Value Units Date High Low ABORHD No results within date range. ABSCREEN No results within date range. Hemoglobin A1C (%) Date Value 02/04/2022 5.9 11/08/2020 5.6 04/20/2020 6.2 12/31/2018 5.7 09/15/2017 5.6 04/02/2017 5.5 Hemoglobin A1C (POCT) (%) Date Value 08/05/2019 5.6 06/01/2018 5.8 No new labs or tests Assessment/Plan S/P CABG (coronary artery bypass graft) Assessment: CABG x1 in 2001, pt states CAD was noted during aortic valve surgery in 2001. Denies any history of OR, chest pain or JACKSON. S/P AVR (aortic valve replacement) and aortoplasty Assessment: BAV and ascending aortic aneurysm s/p AVR and root replacement in 2001, s/p redo 2014 HTN (hypertension) Assessment: controlled with medications Hyperlipidemia LDL goal <100 Assessment: taking statin COREEN (obstructive sleep apnea) Assessment: can not tolerate CPAP Type 2 diabetes mellitus without complication (HCC) Assessment: states glucose runs 90-150 after meals Hemoglobin A1C (%) Date Value 02/04/2022 5.9 11/08/2020 5.6 METS: Climb a flight of stairs or walk up a hill (5.50 METs) Participate in moderate recreational activities, such as golf, bowling, dancing, doubles tennis, or throwing a baseball or football (6.00 METs) Patient denies any chest pain or undue shortness of breath with the above physical activity. ASA Class: 3 ANESTHESIA FINDINGS: Intubation History: No history of difficult intubation Significant Anesthesia Considerations: None Airway Exam: General: Normal appearance Mallampati Score is CLASS II ULBT: Class I - Lower incisors can bite the upper lip above the siddharth line Neck: Normal appearance and function, Distance from hyoid to mentum during neck extension is at least 3 finger breaths Mouth: Normal tongue size and Mouth opening greater than 2 finger breaths Dentition: Caps/crowns, bridge- upper left Airway History: No abnormal airway history STOP BANG Score: COREEN does not use CPAP/BiPAP PLAN This patient is optimally prepared for surgery. CONSULTS: Patient does not require consults for optimization at this time. The Following Tests/Procedures Have Been Initiated: Labs not indicated per [facility] protocol, EKG not indicated per [facility] protocol Planned Anesthetic: Per anesthesia choice Instructions Given to Patient: Patient given verbal instructions and voices comprehension and compliance. Copy sent electronically via My Chart, email, or mobile device. I spent more than 30 minutes [id number] with the patient and over half the time was devoted to counseling and/or coordination of care. SIGNATURE: Brenda Del Angel PA-C PATIENT NAME: Reuben Apodaca DATE: 10/07/2022 TIME: 10:10 AM PAGER/CONTACT #: documented in this encounter [facility] 09-02-2022 Note HNO ID: [id number] Author: Giovana Soler, PT Service: ? Author Type: Physical Therapist Type: Progress Notes Filed: 10/02/2022 11:51 AM Note Text: 10/02/2022 [facility] PHYSICAL THERAPY DISCONTINUANCE OF CARE Plan of Care Period: Start of Care Date: 08/19/22 Last Visit Date: 09/02/2022 Therapy Program: The following is a summary of the interventions provided for this episode of care; Therapeutic exercise and Self-skilled nursing management Assessment: Based on most recent visit, patient was progressing slower than expected toward functional goals based on documented subjective information on progress. Unable to formally assess goal achievement, as patient has not returned to therapy or scheduled additional follow-up appointments. Reason for Discontinuation of Care: Patient has not returned to therapy or scheduled additional follow-up appointments. Giovana Soler, PT Episode Visit Count: 2 Therapist That Will Accept/Oversee The Plan Of Care: Giovana Soler Start of Care Date: 08/19/22 Onset Date: 05/19/22 Plan of Care Certification Date: 08/19/22 Next Certification Due Date: 09/23/22 [facility] PHYSICAL THERAPY TREATMENT NOTE ASSESSMENT: Reuben Apodaca tolerated the session with fatigue and decreased symptoms. He demonstrated difficulty with avoiding excessive hip flexion with side lying hip abductor strengthening series exercises, but this improved with verbal, tactile, and visual cues. The patient will continue to benefit from ongoing skilled physical therapy to progress toward set goals. Current Frequency: 1x every other week PLAN FOR NEXT VISIT: Pt. will be in [place] until first week of august. He will schedule f/u as needed. SUBJECTIVE: Patient Reason for Visit: Pt. reports marginal improvement, he think it may be the medication. He does not notice significant reduction in symptoms when completing the HEP. Patient Goals: reduce L hip pain with activity. Pt. plans to travel to [place] for 10 days to golf. Pain: Pain Pain Level: 1 Pain Location: Hip - Left Frequency: Intermittent, Standing, Walking Post Treatment Pain Post Treatment Pain Level: No Change Post Treatment Pain Location: Hip - Left Post Treatment Pain Description: Aching, Sharp Post Treatment Symptoms: denies hip pain throughout visit, only has L hip fatigue. Does not notice more weakness on the right as compared to the left. OBJECTIVE MEASURES WITH LEVEL OF FUNCTION: TREATMENT: Therapeutic Exercise: 1: *ITB stretch standing 3x30 seconds L side, R side optional 2: *standing or laying glute isometric sets 10 sets of 5-10 second hold 3: *SL hip abd 0%-50% 2x10 each side 4: *SL hip circles CW and CCW 2x10 each direction, each side (verbal and tactile cues to avoid lumbar rotation) 5: *LS hip marches 2x10 each side (verbal and tactile cues to avoid hip flexion at start position) 6: *SL hip abd 50%-100% 2x10 each side 7: *Hip strengthening 1x/day Skilled Intervention: Patient was educated in proper exercise technique and purpose for exercises. Skilled judgment was provided in selection of appropriate interventions. Provided written instruction for home exercise program to facilitate proper performance and compliance. Correct performance of therapeutic exercises was facilitated with verbal, visual, and tactile cuing. Educated patient on rationale for performing exercises in regards to decreasing fatigue , increase ease of ADL, and ROM and function . Patient education as noted. Self-Longterm Management: 1: *provided illustration of hip flexors and abductors to explain the reasoning for exercise technique and the role each group as for advancing the LEs and providing stability to the pelvis. Explained how muscle imbalance can cause excessive force on the lumbar spine due to muscle attachement 2: *HEP may be divided into half in the AM and other half PM due to substantial time to complete and importance of completing it slowly. 3: *written notes added to HEP to assist with correct technique Skilled Intervention: Skilled judgment in the selection of proper modification for activity of daily living/home management based on clinical presentation, deficits, and needs. Physical assistance was provided during education for modifications and patient safety. Provided written instruction for activities of daily living techniques to facilitate proper performance and compliance. Reviewed patient specific diagnosis in relation to activities of daily living/home management. Activity progression based on professional judgement. Provided written instruction for home program to facilitate proper performance and compliance. Correct performance of home program was facilitated with verbal, visual, and tactile cueing. Billing Therapeutic Exercise Treatment Minutes: 30 Self-Care/Home Management Treatment Minutes: (more content not included)... [facility] 09-02-2022 History of Presen t illness Narrative Episode Visit Count: 2 Therapist That Will Accept/Oversee The Plan Of Care: Giovana Soler Start of Care Date: 08/19/22 Onset Date: 05/19/22 Plan of Care Certification Date: 08/19/22 Next Certification Due Date: 09/23/22 [facility] PHYSICAL THERAPY TREATMENT NOTE ASSESSMENT: Reuben Mitzi Constanza tolerated the session with fatigue and decreased symptoms. He demonstrated difficulty with avoiding excessive hip flexion with side lying hip abductor strengthening series exercises, but this improved with verbal, tactile, and visual cues. The patient will continue to benefit from ongoing skilled physical therapy to progress toward set goals. Current Frequency: 1x every other week PLAN FOR NEXT VISIT: Pt. will be in [place] until first week of august. He will schedule f/u as needed. SUBJECTIVE: Patient Reason for Visit: Pt. reports marginal improvement, he think it may be the medication. He does not notice significant reduction in symptoms when completing the HEP. Patient Goals: reduce L hip pain with activity. Pt. plans to travel to [place] for 10 days to golf. Pain: Pain Pain Level: 1 Pain Location: Hip - Left Frequency: Intermittent, Standing, Walking Post Treatment Pain Post Treatment Pain Level: No Change Post Treatment Pain Location: Hip - Left Post Treatment Pain Description: Aching, Sharp Post Treatment Symptoms: denies hip pain throughout visit, only has L hip fatigue. Does not notice more weakness on the right as compared to the left. OBJECTIVE MEASURES WITH LEVEL OF FUNCTION: TREATMENT: Therapeutic Exercise: 1: *ITB stretch standing 3x30 seconds L side, R side optional 2: *standing or laying glute isometric sets 10 sets of 5-10 second hold 3: *SL hip abd 0%-50% 2x10 each side 4: *SL hip circles CW and CCW 2x10 each direction, each side (verbal and tactile cues to avoid lumbar rotation) 5: *LS hip marches 2x10 each side (verbal and tactile cues to avoid hip flexion at start position) 6: *SL hip abd 50%-100% 2x10 each side 7: *Hip strengthening 1x/day Skilled Intervention: Patient was educated in proper exercise technique and purpose for exercises. Skilled judgment was provided in selection of appropriate interventions. Provided written instruction for home exercise program to facilitate proper performance and compliance. Correct performance of therapeutic exercises was facilitated with verbal, visual, and tactile cuing. Educated patient on rationale for performing exercises in regards to decreasing fatigue , increase ease of ADL, and ROM and function . Patient education as noted. Self-Longterm Management: 1: *provided illustration of hip flexors and abductors to explain the reasoning for exercise technique and the role each group as for advancing the LEs and providing stability to the pelvis. Explained how muscle imbalance can cause excessive force on the lumbar spine due to muscle attachement 2: *HEP may be divided into half in the AM and other half PM due to substantial time to complete and importance of completing it slowly. 3: *written notes added to HEP to assist with correct technique Skilled Intervention: Skilled judgment in the selection of proper modification for activity of daily living/home management based on clinical presentation, deficits, and needs. Physical assistance was provided during education for modifications and patient safety. Provided written instruction for activities of daily living techniques to facilitate proper performance and compliance. Reviewed patient specific diagnosis in relation to activities of daily living/home management. Activity progression based on professional judgement. Provided written instruction for home program to facilitate proper performance and compliance. Correct performance of home program was facilitated with verbal, visual, and tactile cueing. Billing Therapeutic Exercise Treatment Minutes: 30 Self-Care/Home Management Treatment Minutes: 8 Total Treatment Time Minutes (timed/untimed): 38 Giovana Soler PT documented in this encounter [facility] 08-19-2022 Note HNO ID: [id number] Author: Giovana Soler PT Service: ? Author Type: Physical Therapist Type: Progress Notes Filed: 08/19/2022 12:18 PM Note Text: Episode Visit Count: 1 Therapist That Will Accept/Oversee The Plan Of Care: Giovana Soler Start of Care Date: 08/19/22 Onset Date: 05/19/22 Plan of Care Certification Date: 08/19/22 Next Certification Due Date: 09/23/22 Patient Identified by Name and Date of : Yes [facility] PHYSICAL THERAPY EVALUATION PLAN OF CARE: Assessment: Reuben Apodaca presents with diagnosis of left hip pain, IT band syndrome, left that interferes with walking in the community . He presents with impairments in ADL's, flexibility, gait, independence in exercise, joint mobility, overall function, patient reported outcome measures, posture, soft tissue healing, strength, symptom management, and tissue tenderness. Patient did not complete the PROMIS? (Patient Reported Outcome Measures Information System). Prognosis for therapy is Good due to: current objective clinical presentation, good overall health status, acuteness of condition, good support system/ coping skills . He will benefit from skilled therapy services to meet the goals established for this plan of care as noted below. Goals for Episode of Care: created on 08/19/22 through 09/30/22 [place] in home exercise program. Patient will decrease pain to 1-2/10 with functional activities to allow patient to improve ambulation, transfers, and standing tolerance for ADLs. Perform all ADLs and exercise 3x/week with decreased report of symptoms/pain in 6 weeks. Normal gait. Patient Goals: reduce L hip pain with activity. Pt. plans to travel to [place] for 10 days to golf. Planned Interventions, Frequency, and Duration: Current Frequency: 1x every other week Duration: 6 weeks Total Number of Visits Planned: 3 Planned Treatment Interventions: Therapeutic exercise (60283), Neuromuscular re-education (36176), Manual therapy (65619), Therapeutic activities (83539), Self-skilled nursing management (63911), Gait Training (31441), Patient/Family/Caregiver Education, Body Mechanics Training PLAN FOR NEXT VISIT: Assess symptom response to reducing ROM of current hip strengthening exercises at the gym in combination with gluteus isometrics sets and ITB stretching to manage symptoms. Patient demonstrates good understanding of plan of care and treatment. The above goals and plan of care were discussed and agreed upon by patient/family. SUBJECTIVE: Reuben Apodaca is a 71 year old male seen today for left hip pain over the past couple of months. Denies injury. Mentions history of spine pain 25 years ago that caused atrophy in left leg. Has not had low back pain recently No prior hip pain before April 2022. Pain increases with movement, he has not identified a specific movement pattern that produces symptoms. Symptoms become worse with standing and walking duration that will cause him to limp. Resolves as soon as he sits. Denies pain with sleeping. Pt. has been completing core and hip strengthening exercises that do not seem to be reducing symptoms. Will be traveling to [place] on 09/07 to golf, and will be there 10 days. Pt. took a year off from working out [facility] days a week and returned in May. Pt. reports onset of symptoms prior to returning to the gym and no improvement since return. Patient Goals: reduce L hip pain with activity. Pt. plans to travel to [place] for 10 days to golf. Functional Limitations: walking in the community Prior Level of Function: Independent without limitations Relevant History Past Relevant Medical Conditions: Hypertension, Cancer, Diabetes Recreation / Current Exercise: 3x /week. Intake Information: Prescription present Previous Treatment: (celebrex, had a skin reaction to meloxicam last friday and .) Falls Interview: No positive findings with falls interview Red Flags Vertebral Fracture Red Flags: Age >70 Vertebral Fracture Clinical Reasoning: Proceed with caution due to the above (1-2) risk factors Abdominal Aortic Aneurysm Red Flags: Age >60 Abdominal Aortic Aneurysm Clinical Reasoning: Proceed with caution Cancer Clinical Reasoning: Proceed with caution Infection Clinical Reasoning: No identified risk factors. Cauda Equina Syndrome Clinical Reasoning: No identified risk factors. Red Flags - Cervical Cancer Clinical Reasoning: Proceed with caution Infection Clinical Reasoning: No identified risk factors. Spine History Symptoms Location at Onset: Buttock Symptoms Since Onset: Unchanging Pain is Worse Always: Bending, Walking, Turning Pain is Better Always: Sitting, Rest Sleep Affected by Pain: Not affected by pain Pain: Pain Pain Level: 1 Pain Location: Hip - Left Description: Sharp, Aching Frequency: Intermittent, Standing, Walking Additional Pain Information : Location 2 Post T (more content not included)... [facility] 08-19-2022 History of Presen t illness Narrative Episode Visit Count: 1 Therapist That Will Accept/Oversee The Plan Of Care: Giovana Soler Start of Care Date: 08/19/22 Onset Date: 05/19/22 Plan of Care Certification Date: 08/19/22 Next Certification Due Date: 09/23/22 Patient Identified by Name and Date of : Yes [facility] PHYSICAL THERAPY EVALUATION PLAN OF CARE: Assessment: Reuben Apodaca presents with diagnosis of left hip pain, IT band syndrome, left that interferes with walking in the community . He presents with impairments in ADL's, flexibility, gait, independence in exercise, joint mobility, overall function, patient reported outcome measures, posture, soft tissue healing, strength, symptom management, and tissue tenderness. Patient did not complete the PROMIS (Patient Reported Outcome Measures Information System). Prognosis for therapy is Good due to: current objective clinical presentation, good overall health status, acuteness of condition, good support system/ coping skills . He will benefit from skilled therapy services to meet the goals established for this plan of care as noted below. Goals for Episode of Care: created on 08/19/22 through 09/30/22 [place] in home exercise program. Patient will decrease pain to 1-2/10 with functional activities to allow patient to improve ambulation, transfers, and standing tolerance for ADLs. Perform all ADLs and exercise 3x/week with decreased report of symptoms/pain in 6 weeks. Normal gait. Patient Goals: reduce L hip pain with activity. Pt. plans to travel to [place] for 10 days to golf. Planned Interventions, Frequency, and Duration: Current Frequency: 1x every other week Duration: 6 weeks Total Number of Visits Planned: 3 Planned Treatment Interventions: Therapeutic exercise (81148), Neuromuscular re-education (84564), Manual therapy (68678), Therapeutic activities (84981), Self-skilled nursing management (82069), Gait Training (97739), Patient/Family/Caregiver Education, Body Mechanics Training PLAN FOR NEXT VISIT: Assess symptom response to reducing ROM of current hip strengthening exercises at the gym in combination with gluteus isometrics sets and ITB stretching to manage symptoms. Patient demonstrates good understanding of plan of care and treatment. The above goals and plan of care were discussed and agreed upon by patient/family. SUBJECTIVE: Reuben Apodaca is a 71 year old male seen today for left hip pain over the past couple of months. Denies injury. Mentions history of spine pain 25 years ago that caused atrophy in left leg. Has not had low back pain recently No prior hip pain before April 2022. Pain increases with movement, he has not identified a specific movement pattern that produces symptoms. Symptoms become worse with standing and walking duration that will cause him to limp. Resolves as soon as he sits. Denies pain with sleeping. Pt. has been completing core and hip strengthening exercises that do not seem to be reducing symptoms. Will be traveling to [place] on 09/07 to golf, and will be there 10 days. Pt. took a year off from working out at [facility] days a week and returned in May. Pt. reports onset of symptoms prior to returning to the gym and no improvement since return. Patient Goals: reduce L hip pain with activity. Pt. plans to travel to [place] for 10 days to golf. Functional Limitations: walking in the community Prior Level of Function: Independent without limitations Relevant History Past Relevant Medical Conditions: Hypertension, Cancer, Diabetes Recreation / Current Exercise: 3x /week. Intake Information: Prescription present Previous Treatment: (celebrex, had a skin reaction to meloxicam last friday and .) Falls Interview: No positive findings with falls interview Red Flags Vertebral Fracture Red Flags: Age >70 Vertebral Fracture Clinical Reasoning: Proceed with caution due to the above (1-2) risk factors Abdominal Aortic Aneurysm Red Flags: Age >60 Abdominal Aortic Aneurysm Clinical Reasoning: Proceed with caution Cancer Clinical Reasoning: Proceed with caution Infection Clinical Reasoning: No identified risk factors. Cauda Equina Syndrome Clinical Reasoning: No identified risk factors. Red Flags - Cervical Cancer Clinical Reasoning: Proceed with caution Infection Clinical Reasoning: No identified risk factors. Spine History Symptoms Location at Onset: Buttock Symptoms Since Onset: Unchanging Pain is Worse Always: Bending, Walking, Turning Pain is Better Always: Sitting, Rest Sleep Affected by Pain: Not affected by pain Pain: Pain Pain Level: 1 Pain Location: Hip - Left Description: Sharp, Aching Frequency: Intermittent, Standing, Walking Additional Pain Information : Location 2 Post Treatment Pain Post Treatment Pain Level: No Change Post Treatment Pain Location: Hip - Left Post Treatment Pain Description: Aching, Sharp PROMIS Scales T-scores: mean of general population = 50. 5 points is clinically meaningfully difference Percentiles provide an indication of how the patient's score ranks in relation to the general population. Higher percentile rankings indicate better function/quality of life. 50th percentile is the average of the general population and indicates half of respondents had a worse score. OBJECTIVE MEASURES WITH LEVEL OF FUNCTION: Posture / Alignment Posture: Good Hip Observations L Hip Palpation Tenderness: Greater trochanter Sensation - Lower Extremity LE Light Touch Sensation: Grossly Intact Sensation - Lumbar Sensation: Grossly Intact Lumbar Spine AROM Lumbar Flexion: Normal Lumbar Extension: Moderate limitation Lumbar R Side-Bend: Moderate limitation Lumbar L Side-Bend: Moderate limitation Lumbar R Rotation: Normal Lumbar L Rotation: Normal LE AROM Lumbar Spine Evaluated?: Yes LE Flexibility Flexibility: Hip Internal Rotation Flexibility, Hip External Rotation Flexibility, Piriformis Flexibility, IT Band Flexibility L IT Band Flexibility: stretch felt, normal ROM L Hip Internal Rotation Flexibility: WNL- pain at endrange L Hip External Rotation Flexibility: WNL- pain at endrange L Piriformis Flexibility: WNL- pain at endrange Joint Mobility - Hip L Posterior Hip Capsule: WNL L Anterior Hip Capsule: WNL LE Strength L LE Strength: painful at greater trochanter insertion with ER and abduction, as well as endrange IR L Hip Extension: 5/5 L Hip ABduction: 5/5 L Hip ADduction: 5/5 L Hip External Rotation: 5/5 Special Tests - Hip and Spine Hip and Spine Special Tests: FADDIR Test, Active SLR, SLR Test, SCOT Test, Scour Test, Slump Test SLR Test: Left Negative, Right Negative Slump Test: Left Negative, Right Negative SCOT Test: Right Negative, Left Positive (pain at endrange, but equal ROM as R) FADDIR Test: Left Positive, Right Negative (pain at endrange, but equal ROM as R) Scour Test: Right Negative, Left Negative Active SLR: Left Negative, Right Negative Special Test Comments: single leg closed chain L hip abd/add- painful both directions Gait Gait: Independent Gait Distance (feet): 50 Gait Device: None Gait Deviations: Left Lower Extremity Gait Deviations Left Lower Extremity: Lacks hip extension beyond mid-stance, Push off during terminal stance decreased, Heel strike during initial stance decreased Education: Education Learning Preferences: Demonstration, Explanation, Printed Materials, Performance Barriers: None Learning/educational needs: Gait Training, Posture, Home exercise program, Plan of Care Education Provided: Yes, see treatment interventions for education provided Education Provided To: Patient Education Mode/Type: Demonstration, Explanation/Discussion, Literature/Printed Materials, Performance Response to Education/Teach Back: States/Identifies, Return Demonstration TREATMENT: PT Treatment Interventions: Therapeutic Exercise, Self-Longterm Management Evaluation Therapeutic Exercise: 1: *ITB stretch standing 3x30 seconds L side, R side optional 2: *standing or laying glute isometric sets 10 sets of 5-10 second hold 3: SL hip abd 1x5 L-- symptoms reproduced but demonstrates 5/5 MMT Skilled Intervention: Patient was educated in proper exercise technique and purpose for exercises. Skilled judgment was provided in selection of appropriate interventions. Provided written instruction for home exercise program to facilitate proper performance and compliance. Correct performance of therapeutic exercises was facilitated with verbal, visual, and tactile cuing. Educated patient on rationale for performing exercises in regards to decreasing fatigue , increase ease of ADL, and ROM and function . Patient education as noted. Self-Longterm Management: 1: *discussed using appropriate load for weight amount when completing hip strengthening exercises, movements should be controlled within a pain free ROM rather than using momentum to move load through full ROM 2: *discussed how nature of symptoms based on history and movement exam seem to reflect possible strain of the gluteus medius muscles with active or passive strain or pull felt at the insertion greater trochanter of the L hip. Pt. demonstrates strength and ROM equal to the opposite LE. PT encouraged continued hip strengthening exercises but to complete with appropriate technique and to avoid painful ROM until symptoms with ADLs resolve. 3: *showed illustrations of gluteus muscles origin, insertion, and discussed muscle action. Skilled Intervention: Skilled judgment in the selection of proper modification for activity of daily living/home management based on clinical presentation, deficits, and needs. Physical assistance was provided during education for modifications and patient safety. Educated the patient regarding recommendations and provided written instruction to facilitate compliance. Provided written instruction for activities of daily living techniques to facilitate proper performance and compliance. Reviewed patient specific diagnosis in relation to activities of daily living/home management. Activity progression based on professional judgement. Provided written instruction for home program to facilitate proper performance and compliance. Correct performance of home program was facilitated with verbal, visual, and tactile cueing. Billing * Evaluation Low Complexity: 1 Unit Therapeutic Exercise Treatment Minutes: 10 Self-Care/Home Management Treatment Minutes: 15 Total Treatment Time Minutes (timed/untimed): 45 Giovana Soler PT documented in this encounter [facility] 08-16-2022 Miscellaneous Notes Electronic PA was completed for Fluorouracil 2% solution. Notified by insurance Drug is not offered on plan. Will have to send something on formulary. Patient aware will need to call medicare part D to see if anything else can be sent. Patient did pick it up but was $60 Joyce Cates Ma documented in this encounter [facility] 08-15-2022 Miscellaneous Notes Pt notified and voiced understanding. Diana Mcclellan Ma' Rx done for Celebrex to use in place of meloxicam Elma Jung MD Patient calling to check status of request. Patient not sure what medication he should take to replace Meloxicam rx? Please advise Patient contacted and given provider's message below. Pt states sx's have marginally improved and have not worsened. Pt asking PCP if there is something similar to meloxicam that can be ordered , that is not a high tiered medication, instead of taking OTC Tylenol Arthritis? Requesting Jameson Degroot. Please advise. Thank you. I would recommend that he discontinue the meloxicam. He should go to the ER if he develops difficulty swallowing or breathing. The rash should resolve on its own. Can use some benadryl for itching at home. Can continue with plan to see PHYSICAL THERAPY for his hip. Can trial using over the counter Tylenol Arthritis for discomfort. Gavin Coe APRN.[employer] Pt called in to report he started Meloxicam on Friday and took it Friday and today he noticed he is red all over on front, back, legs and arms. No itching, no raised area just look like he took a hot shower and was left with lorene skin. Also denies any difficulty breathing or swallowing. Pt reports the only thing different is the Meloxicam. Pt has not taken today and waiting for your response. Erendira Cope LPN documented in this encounter [facility] 08-14-2022 Miscellaneous Notes Patient calling. He was expecting a call from Simona Hernandez on 08/12/22, but received none. Please call to schedule procedure, . He comes from [facility]. No need for PREOP. He should be familiar as we did this procedure for him previously. Patient called in and is wanting to do the RFA with Dr. Briceno now. Can he be contacted to set this up? Thank you! documented in this encounter [facility] 08-12-2022 Note HNO ID: [id number] Author: RT Aida(R) Service: Nuclear Medicine Author Type: Technologist Type: Progress Notes Filed: 08/12/2022 4:19 PM Note Text: Radiology Service Progress Note PATIENT NAME: Reuben Apodaca DATE OF SERVICE: August 12, 2022 TIME: 4:05 PM PATIENT IDENTITY VERIFICATION COMPLETED USING TWO (2) IDENTIFIERS: Name and Date of confirmed by patient verbally. FALL SCREENING: Has the patient had 2 falls in the last year or 1 fall with injury or currently using an Ambulatory Assistive Device (Walker, Cane, Wheelchair, Crutches, etc.)? No PATIENT GENDER DATA: Male PATIENT RELEVANT IMPLANT DATA REVIEWED: Not Applicable RADIOLOGY DEPARTMENT: General X-ray: Exam(s) Completed: Pelvis X-Ray: Pelvis with Hip Left PERIPHERAL IV DATA: Not applicable SIGNED BY: RT Aida(R) August 12, 2022 4:05 PM [facility] 08-12-2022 Note HNO ID: [id number] Author: Elma Jung MD Service: ? Author Type: Physician Type: Progress Notes Filed: 08/12/2022 8:19 PM Note Text: Chief Complaint Patient presents with: Left Hip Pain HPI Reuben Apodaca is a 71 year old male who presents here today for an acute visit. Pt scheduled for same day visit for left hip pain. New pt to this office, established with practice. Formerly saw Dr. Godinez and Madi Mcdaniel CNP. Pt here today with c/o of left hip pain over the past couple of months. Was seen by UZMA Kiser who did some OMT due to thigh, groin and hip pain. Denies any injury that he's aware of to start this. Prior spinal issue/back issues in 1997 that caused atrophy in left leg. No prior hip issues. Pain tends to be mostly with movement. Pain a 1-2/10, but this can increase to a 3-4/10. Pain varies but will have sharp pain with movement that last 5-10 seconds. Generally always has a constant dull, ache and annoying pain. Denies pain with sleeping or pain waking him up. After walking he will start limping. Has a friend who had similar symptoms and was dx with bursitis. Gave him some of the exercises that he was completing with bands and stretching. No real change. Exercises at [facility] 4-5 days a week. Will be traveling to [place] on 09/07 to golf concerned about walking, not wanting to limp. Will be there for 10 days. Derm - Asking for Efudex to treat pre-cancerous spots on scalp. Has done this a few times over the past few years. Pt asking for empiric treatment due to being in contact with his grandson who tested positive for strep. Will only pick this up if he becomes sick. Past medical history, appointments, medications, allergies reviewed. 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 Hyperlipidemia LDL goal < 100 06/09/2013 Hyperlipidemia LDL goal <100 11/28/2015 Hypertension Rotator cuff syndrome of both shoulders 07/27/2015 Skin cancer Snoring Type 2 diabetes mellitus without complication (HCC) 01/26/2015 Type II or unspecified type diabetes mellitus without mention of complication, not stated as uncontrolled Unspecified venous (peripheral) insufficiency Previous Surgical History PAST SURGICAL HISTORY Procedure Laterality Date APPENDECTOMY 08/30/92 CABG W/ARTERIAL GRAFT SINGLE ARTERIAL GRAFT 06/2001 COLONOSCOPY FLX DX W/COLLJ SPEC WHEN PFRMD 08/28/07 Extensive sigmoid diverticulosis HEART SURGERY HX LITHOTRIPSY XTRCORP SHOCK WAVE 11/06/11 Lithotripsy MAL LESION TRUNK,ARM,LEG 1.1-2.0 CM 01/07/07 Exc. left upper back lesion PAST SURGICAL HISTORY OF 1997 discectomy Lumbar PERCUTANEOUS AORTIC VALVE REPLACEMENT 2001 RMVL SEC [facility]BRANOUS CTRC CORNEO-SCLL SCTJ 1998 Cataract removal WHIT (TRANSESOPHAGEAL ECHO) 09/30/14 WHIT (TRANSESOPHAGEAL ECHO) 10/27/2014 [facility] Family History FAMILY HISTORY Problem Relation Age of Onset Coronary Artery Disease Father Heart Father Coronary Artery Disease Maternal Grandfather Patient Allergies ALLERGIES Allergen Reactions Enviormental [Other] Ultram [Tramadol Hc* non-specific side effects Zoloft [Sertraline * Unknown Current Medications Current Outpatient Medications on File Prior to Visit Medication Sig metFORMIN (GLUCOPHAGE) 500 mg tablet Take 1 tablet by mouth daily with breakfast. metoprolol tartrate, short acting, (LOPRESSOR) 50 mg tablet Take 1 tablet by mouth twice daily. traZODone (DESYREL) 100 mg tablet Take 1 tablet by mouth daily at bedtime. pravastatin (PRAVACHOL) 40 mg tablet Take 1 tablet by mouth daily at bedtime. amLODIPine (NORVASC) 10 mg tablet Take 1 tablet by mouth once daily. lisinopril (ZESTRIL, PRINIVIL) 5 mg tablet Take 1 tablet by mouth once daily. hydroCHLOROthiazide (HYDRODIURIL, ESIDRIX) 12.5 mg capsule TAKE 1 CAPSULE DAILY (DOSE ADJUSTMENT) ketoconazole (NIZORAL) 2 % cream Apply to the face daily to BID as needed Fluorouracil (EFUDEX) 5 % cream Apply to the lower lip TWICE DAILY for 3 weeks amoxicillin (POLYMOX, AMOXIL) 500 mg capsule Take 4 pill PO 1 hour prior to surgery blood sugar diagnostic (RELION PRIME TEST STRIPS) test strip Test glucose 2 x per day. Insulin use: No aspirin 81 mg chewable tablet Take 1 tablet by mouth once daily. Lancets (ONE TOUCH ULTRASOFT LANCETS) lancets Use as instructed No current facility-administered medications on file prior to visit. Social History Social History Tobacco Use Smoking status: Never Smokeless tobacco: Never Vaping Use Vaping Use: Never used Substance Use Topics Alcohol use: No Comment: RARE Drug use: No EXAM: BP 138/64 (BP Site: Left Arm, BP Position: Sitting, BP Cuff Size: Regular (more content not included)... [facility] 08-12-2022 History of Presen t illness Narrative Chief Complaint Patient presents with: Left Hip Pain HPI Reuben Apodaca is a 71 year old male who presents here today for an acute visit. Pt scheduled for same day visit for left hip pain. New pt to this office, established with practice. Formerly saw Dr. Godinez and Madi Mcdaniel CNP. Pt here today with c/o of left hip pain over the past couple of months. Was seen by UZMA Kiser who did some OMT due to thigh, groin and hip pain. Denies any injury that he's aware of to start this. Prior spinal issue/back issues in 1997 that caused atrophy in left leg. No prior hip issues. Pain tends to be mostly with movement. Pain a 1-2/10, but this can increase to a 3-4/10. Pain varies but will have sharp pain with movement that last 5-10 seconds. Generally always has a constant dull, ache and annoying pain. Denies pain with sleeping or pain waking him up. After walking he will start limping. Has a friend who had similar symptoms and was dx with bursitis. Gave him some of the exercises that he was completing with bands and stretching. No real change. Exercises at [facility] 4-5 days a week. Will be traveling to [place] on 09/07 to [employer] concerned about walking, not wanting to limp. Will be there for 10 days. Derm - Asking for Efudex to treat pre-cancerous spots on scalp. Has done this a few times over the past few years. Pt asking for empiric treatment due to being in contact with his grandson who tested positive for strep. Will only pick this up if he becomes sick. Past medical history, appointments, medications, allergies reviewed. 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 Hyperlipidemia LDL goal < 100 06/09/2013 Hyperlipidemia LDL goal <100 11/28/2015 Hypertension Rotator cuff syndrome of both shoulders 07/27/2015 Skin cancer Snoring Type 2 diabetes mellitus without complication (HCC) 01/26/2015 Type II or unspecified type diabetes mellitus without mention of complication, not stated as uncontrolled Unspecified venous (peripheral) insufficiency Previous Surgical History PAST SURGICAL HISTORY Procedure Laterality Date APPENDECTOMY 08/30/92 CABG W/ARTERIAL GRAFT SINGLE ARTERIAL GRAFT 06/2001 COLONOSCOPY FLX DX W/COLLJ SPEC WHEN PFRMD 08/28/07 Extensive sigmoid diverticulosis HEART SURGERY HX LITHOTRIPSY XTRCORP SHOCK WAVE 11/06/11 Lithotripsy MAL LESION TRUNK,ARM,LEG 1.1-2.0 CM 01/07/07 Exc. left upper back lesion PAST SURGICAL HISTORY OF 1997 discectomy Lumbar PERCUTANEOUS AORTIC VALVE REPLACEMENT 2001 RMVL SEC [facility]BRANOUS CTRC CORNEO-SCLL SCTJ 1998 Cataract removal WHIT (TRANSESOPHAGEAL ECHO) 09/30/14 WHIT (TRANSESOPHAGEAL ECHO) 10/27/2014 [facility] Family History FAMILY HISTORY Problem Relation Age of Onset Coronary Artery Disease Father Heart Father Coronary Artery Disease Maternal Grandfather Patient Allergies ALLERGIES Allergen Reactions Enviormental [Other] Ultram [Tramadol Hc* non-specific side effects Zoloft [Sertraline * Unknown Current Medications Current Outpatient Medications on File Prior to Visit Medication Sig metFORMIN (GLUCOPHAGE) 500 mg tablet Take 1 tablet by mouth daily with breakfast. metoprolol tartrate, short acting, (LOPRESSOR) 50 mg tablet Take 1 tablet by mouth twice daily. traZODone (DESYREL) 100 mg tablet Take 1 tablet by mouth daily at bedtime. pravastatin (PRAVACHOL) 40 mg tablet Take 1 tablet by mouth daily at bedtime. amLODIPine (NORVASC) 10 mg tablet Take 1 tablet by mouth once daily. lisinopril (ZESTRIL, PRINIVIL) 5 mg tablet Take 1 tablet by mouth once daily. hydroCHLOROthiazide (HYDRODIURIL, ESIDRIX) 12.5 mg capsule TAKE 1 CAPSULE DAILY (DOSE ADJUSTMENT) ketoconazole (NIZORAL) 2 % cream Apply to the face daily to BID as needed Fluorouracil (EFUDEX) 5 % cream Apply to the lower lip TWICE DAILY for 3 weeks amoxicillin (POLYMOX, AMOXIL) 500 mg capsule Take 4 pill PO 1 hour prior to surgery blood sugar diagnostic (RELION PRIME TEST STRIPS) test strip Test glucose 2 x per day. Insulin use: No aspirin 81 mg chewable tablet Take 1 tablet by mouth once daily. Lancets (ONE TOUCH ULTRASOFT LANCETS) lancets Use as instructed No current facility-administered medications on file prior to visit. Social History Social History Tobacco Use Smoking status: Never Smokeless tobacco: Never Vaping Use Vaping Use: Never used Substance Use Topics Alcohol use: No Comment: RARE Drug use: No EXAM: BP 138/64 (BP Site: Left Arm, BP Position: Sitting, BP Cuff Size: Regular Adult) Pulse 60 Resp 16 Wt 85.7 kg (189 lb) BMI 27.12 kg/m General Appearance: Well appearing, alert, in no acute distress, well-hydrated, well nourished. Derm: Actinic keratosis on face. . Extremities: L hip examined. Good ROM. Some tenderness to palpate around IT band, hip joint. Health Maintenance List DTAP,TDAP,TD(2 - Td or Tdap) due on 11/10/2018 COVID-19 VACCINE(5 - Booster for Moderna series) due on 03/25/2022 BP CONTROLLED (<130/80) due on 04/02/2022 ADVANCE DIRECTIVE DISCUSSION due on 06/23/2022 DEPRESSION ASSESSMENT Never done HBA1C due on 08/07/2022 URINE ALBUMIN:CREATININE RATIO due on 02/04/2023 LDL CHOLESTEROL due on 02/04/2023 DIABETIC FOOT EXAM due on 02/04/2023 DILATED RETINAL EXAM due on 02/11/2023 ANNUAL PCP TEAM CHRONIC DISEASE VISIT due on 06/26/2023 COLORECTAL CANCER SCREENING due on 09/23/2027 INFLUENZA Completed HEPATITIS C SCREENING Completed SHINGRIX VACCINE Completed PNEUMOCOCCAL: 65+ Completed Data reviewed Epic ASSESSMENT/PLAN: 1. Left hip pain - ICD9: 719.45, ICD10: M25.552 (primary diagnosis) - Check XR today. - Mobic 15 mg for few weeks - Consult PT 2. It band syndrome, left - ICD9: 728.89, ICD10: M76.32 - As noted above 3. Actinic keratoses - ICD9: 702.0, ICD10: L57.0 - Rx given today. - FLUOROURACIL 5 % TOPICAL CREAM Complete XR today, will call with those results. I agree with the Chief Complaint, ROS, and Past Histories independently gathered by the clinical marketing support specialist and the remaining scribed note accurately describes my personal service to the patient. Medical Decision Making: Problems: Low: Acute, uncomplicated illness or injury and Stable chronic illness Data: Unique test(s) ordered: 1 Risk: Moderate: Drug management Medical Decision Making Level: 3 - Low Elma Jung MD The documentation for this note was completed by Vanda Mar Ma acting as scribe for Elma Jung MD. August 12, 2022 3:43 PM. Vanda Mar Ma documented in this encounter [facility] 06-26-2022 Note HNO ID: [id number] Author: Gemma Scherer MD Service: ? Author Type: Physician Type: Progress Notes Filed: 06/26/2022 5:10 PM Note Text: Chief Complaint Patient presents with: Cough HPI Reuben Apodaca is a 71 year old male who presents here today for Above Complaints. Patient evaluated in [facility] on 06/18 for c/o cough, fever, sore throat and headache x1 day. Negative for strep, but was positive for influenza A. Called next day and was sent in rx for Tamiflu. Called on 06/20 and requested cough syrup with codeine for night time cough from Dr. Jung which was filled 118 mL bottle. Patient had been using 2 times in the evening. Called in again today and Dr. Mariano refused refill as he had not seen patient and this is requirement per state law. Wanted OV to discuss medication for cough. Today, patient states that he did pick up driver tamiflu and completed course. C/o of productive cough with yellow sputums. All other symptoms have resolved. Denie SOB, wheezing, chest pain, and chest congestion. Has not been taking anything OTC for symptoms with this illness. States that he has 72 years of experience with other cough medicine and nothing helps with his symptoms. Past medical history, appointments, medications, allergies reviewed. Previous Medical History PAST MEDICAL HISTORY Diagnosis Date Aortic valve disorders 2001 bicuspid aortic valve Cervical osteoarthritis 04/26/2010 Coronary artery disease Diabetes mellitus with neuropathy (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 Hyperlipidemia LDL goal < 100 06/09/2013 Hyperlipidemia LDL goal <100 11/28/2015 Hypertension Rotator cuff syndrome of both shoulders 07/27/2015 Skin cancer Snoring Type 2 diabetes mellitus without complication ([facility]) 01/26/2015 Type II or unspecified type diabetes mellitus without mention of complication, not stated as uncontrolled Unspecified venous (peripheral) insufficiency Previous Surgical History PAST SURGICAL HISTORY Procedure Laterality Date APPENDECTOMY 08/30/92 CABG W/ARTERIAL GRAFT SINGLE ARTERIAL GRAFT 06/2001 COLONOSCOPY FLX DX W/COLLJ SPEC WHEN PFRMD 08/28/07 Extensive sigmoid diverticulosis HEART SURGERY HX LITHOTRIPSY XTRCORP SHOCK WAVE 11/06/11 Lithotripsy MAL LESION TRUNK,ARM,LEG 1.1-2.0 CM 01/07/07 Exc. left upper back lesion PAST SURGICAL HISTORY OF 1997 discectomy Lumbar PERCUTANEOUS AORTIC VALVE REPLACEMENT 2001 RMVL SEC [facility]BRANOUS CTRC CORNEO-SCLL SCTJ 1998 Cataract removal WHIT (TRANSESOPHAGEAL ECHO) 09/30/14 WHIT (TRANSESOPHAGEAL ECHO) 10/27/2014 [facility] Family History FAMILY HISTORY Problem Relation Age of Onset Coronary Artery Disease Father Heart Father Coronary Artery Disease Maternal Grandfather Patient Allergies ALLERGIES Allergen Reactions Enviormental [Other] Ultram [Tramadol Hc* non-specific side effects Zoloft [Sertraline * Unknown Current Medications Current Outpatient Medications on File Prior to Visit Medication Sig codeine-guaiFENesin (ROBITUSSIN AC) 10-100 mg/5 mL syrup Take 5 mL by mouth three times daily as needed for cough for up to 7 days. For Cough metFORMIN (GLUCOPHAGE) 500 mg tablet Take 1 tablet by mouth daily with breakfast. metoprolol tartrate, short acting, (LOPRESSOR) 50 mg tablet Take 1 tablet by mouth twice daily. traZODone (DESYREL) 100 mg tablet Take 1 tablet by mouth daily at bedtime. pravastatin (PRAVACHOL) 40 mg tablet Take 1 tablet by mouth daily at bedtime. amLODIPine (NORVASC) 10 mg tablet Take 1 tablet by mouth once daily. lisinopril (ZESTRIL, PRINIVIL) 5 mg tablet Take 1 tablet by mouth once daily. hydroCHLOROthiazide (HYDRODIURIL, ESIDRIX) 12.5 mg capsule TAKE 1 CAPSULE DAILY (DOSE ADJUSTMENT) ketoconazole (NIZORAL) 2 % cream Apply to the face daily to BID as needed Fluorouracil (EFUDEX) 5 % cream Apply to the lower lip TWICE DAILY for 3 weeks amoxicillin (POLYMOX, AMOXIL) 500 mg capsule Take 4 pill PO 1 hour prior to surgery blood sugar diagnostic (RELION PRIME TEST STRIPS) test strip Test glucose 2 x per day. Insulin use: No aspirin 81 mg chewable tablet Take 1 tablet by mouth once daily. Lancets (ONE TOUCH ULTRASOFT LANCETS) lancets Use as instructed No current facility-administered medications on file prior to visit. Social History Social History Tobacco Use Smoking status: Never Smokeless tobacco: Never Vaping Use Vaping Use: Never used Substance Use Topics Alcohol use: No Comment: RARE Drug use: No Review of Symptoms REVIEW OF SYSTEMS See HPI EXAM: BP 134/66 Pulse (!) 57 Temp 36.7 ?C (98.1 ?F) (Temporal) Resp 16 Wt 85.3 kg (188 lb) SpO2 98% BMI 26.98 kg/m? General Appearance: Well appearing, alert, in no acute distress, well-hydrated, well nourished. Occasional dry sounding cough. Skin: Skin color, texture, turgor normal, no suspicious rashes or lesion (more content not included)... [facility] 06-26-2022 History of Presen t illness Narrative Chief Complaint Patient presents with: Cough HPI Reuben Apodaca is a 71 year old male who presents here today for Above Complaints. Patient evaluated in [facility] on 06/18 for c/o cough, fever, sore throat and headache x1 day. Negative for strep, but was positive for influenza A. Called next day and was sent in rx for Tamiflu. Called on 06/20 and requested cough syrup with codeine for night time cough from Dr. Jung which was filled 118 mL bottle. Patient had been using 2 times in the evening. Called in again today and Dr. Mariano refused refill as he had not seen patient and this is requirement per state law. Wanted OV to discuss medication for cough. Today, patient states that he did pick up driver tamiflu and completed course. C/o of productive cough with yellow sputums. All other symptoms have resolved. Denie SOB, wheezing, chest pain, and chest congestion. Has not been taking anything OTC for symptoms with this illness. States that he has 72 years of experience with other cough medicine and nothing helps with his symptoms. Past medical history, appointments, medications, allergies reviewed. Previous Medical History PAST MEDICAL HISTORY Diagnosis Date Aortic valve disorders 2001 bicuspid aortic valve Cervical osteoarthritis 04/26/2010 Coronary artery disease Diabetes mellitus with neuropathy (HCC) 07/15/2014 Diverticulosis of colon (without mention of hemorrhage) 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/20/2014 Hyperlipidemia LDL goal < 100 06/09/2013 Hyperlipidemia LDL goal <100 11/28/2015 Hypertension Rotator cuff syndrome of both shoulders 07/27/2015 Skin cancer Snoring Type 2 diabetes mellitus without complication (HCC) 01/26/2015 Type II or unspecified type diabetes mellitus without mention of complication, not stated as uncontrolled Unspecified venous (peripheral) insufficiency Previous Surgical History PAST SURGICAL HISTORY Procedure Laterality Date APPENDECTOMY 08/30/92 CABG W/ARTERIAL GRAFT SINGLE ARTERIAL GRAFT 06/2001 COLONOSCOPY FLX DX W/COLLJ SPEC WHEN PFRMD 08/28/07 Extensive sigmoid diverticulosis HEART SURGERY HX LITHOTRIPSY XTRCORP SHOCK WAVE 11/06/11 Lithotripsy MAL LESION TRUNK,ARM,LEG 1.1-2.0 CM 01/07/07 Exc. left upper back lesion PAST SURGICAL HISTORY OF 1997 discectomy Lumbar PERCUTANEOUS AORTIC VALVE REPLACEMENT 2001 RMVL SEC [facility]BRAN[facility] CORNEO-SCLL SCTJ 1998 Cataract removal WHIT (TRANSESOPHAGEAL ECHO) 09/30/14 WHIT (TRANSESOPHAGEAL ECHO) 10/27/2014 [facility] Family History FAMILY HISTORY Problem Relation Age of Onset Coronary Artery Disease Father Heart Father Coronary Artery Disease Maternal Grandfather Patient Allergies ALLERGIES Allergen Reactions Enviormental [Other] Ultram [Tramadol Hc* non-specific side effects Zoloft [Sertraline * Unknown Current Medications Current Outpatient Medications on File Prior to Visit Medication Sig codeine-guaiFENesin (ROBITUSSIN AC) 10-100 mg/5 mL syrup Take 5 mL by mouth three times daily as needed for cough for up to 7 days. For Cough metFORMIN (GLUCOPHAGE) 500 mg tablet Take 1 tablet by mouth daily with breakfast. metoprolol tartrate, short acting, (LOPRESSOR) 50 mg tablet Take 1 tablet by mouth twice daily. traZODone (DESYREL) 100 mg tablet Take 1 tablet by mouth daily at bedtime. pravastatin (PRAVACHOL) 40 mg tablet Take 1 tablet by mouth daily at bedtime. amLODIPine (NORVASC) 10 mg tablet Take 1 tablet by mouth once daily. lisinopril (ZESTRIL, PRINIVIL) 5 mg tablet Take 1 tablet by mouth once daily. hydroCHLOROthiazide (HYDRODIURIL, ESIDRIX) 12.5 mg capsule TAKE 1 CAPSULE DAILY (DOSE ADJUSTMENT) ketoconazole (NIZORAL) 2 % cream Apply to the face daily to BID as needed Fluorouracil (EFUDEX) 5 % cream Apply to the lower lip TWICE DAILY for 3 weeks amoxicillin (POLYMOX, AMOXIL) 500 mg capsule Take 4 pill PO 1 hour prior to surgery blood sugar diagnostic (RELION PRIME TEST STRIPS) test strip Test glucose 2 x per day. Insulin use: No aspirin 81 mg chewable tablet Take 1 tablet by mouth once daily. Lancets (ONE TOUCH ULTRASOFT LANCETS) lancets Use as instructed No current facility-administered medications on file prior to visit. Social History Social History Tobacco Use Smoking status: Never Smokeless tobacco: Never Vaping Use Vaping Use: Never used Substance Use Topics Alcohol use: No Comment: RARE Drug use: No Review of Symptoms REVIEW OF SYSTEMS See HPI EXAM: BP 134/66 Pulse (!) 57 Temp 36.7 C (98.1 F) (Temporal) Resp 16 Wt 85.3 kg (188 lb) SpO2 98% BMI 26.98 kg/m General Appearance: Well appearing, alert, in no acute distress, well-hydrated, well nourished. Occasional dry sounding cough. Skin: Skin color, texture, turgor normal, no suspicious rashes or lesions. Lungs: Lungs clear to auscultation. No wheezing, rhonchi, rales.. Heart: RRR without murmur, gallop, or rubs. No ectopy. Health Maintenance List DTAP,TDAP,TD(2 - Td or Tdap) due on 11/10/2018 COVID-19 VACCINE(5 - Booster for Moderna series) due on 03/25/2022 BP CONTROLLED (<130/80) due on 04/02/2022 ADVANCE DIRECTIVE DISCUSSION due on 06/23/2022 DEPRESSION ASSESSMENT Never done HBA1C due on 08/07/2022 URINE ALBUMIN:CREATININE RATIO due on 02/04/2023 LDL CHOLESTEROL due on 02/04/2023 DIABETIC FOOT EXAM due on 02/04/2023 DILATED RETINAL EXAM due on 02/11/2023 ANNUAL PCP TEAM CHRONIC DISEASE VISIT due on 05/17/2023 COLORECTAL CANCER SCREENING due on 09/23/2027 INFLUENZA Completed HEPATITIS C SCREENING Completed SHINGRIX VACCINE Completed PNEUMOCOCCAL: 65+ Completed ASSESSMENT/PLAN: 1. Influenza A - ICD9: 487.1, ICD10: J10.1 (primary diagnosis) Symptoms improving aside from cough. Patient requesting refill on cough syrup with codeine today. I discussed with patient at length that this is not something we typically prescribed as there have been multiple studies which show no difference when compared to placebo. He has not tried anything else OTC for this illness and discussed with him that something like tessalon or delsym or Mucinex may help relieve his symptoms and would be safer option than opiate treatment. I also discussed with him that he was given rx for [address] Jung. If he has been taking this BID since 06/20, this would like him 11-12 days and he should not be out of this already, so I still cannot call this in for him. Patient became agitated asking if I though he was selling it or addicted and pulled down his mask so I could see his face. I asked him to put on his mask and offered to prescribe an alternative such as tessalon. Patient refused and stated that the visit was over and stormed out of the office complaining that he would be charged for this visit. 2. Persistent cough - ICD9: 786.2, ICD10: R05.3 See above. I spent a total of 24 minutes on the date of the service which included preparing to see the patient, [id number] patient care, completing clinical documentation, obtaining and/or reviewing separately obtained history, performing a medically appropriate examination, and counseling and educating the patient/family/caregiver. Gemma Scherer MD documented in this encounter [facility] 06-26-2022 Miscellaneous Notes TC to pt, notified of provider response. Pt very upset that he needs to be seen to get cough syrup. Pt states this is the same issue he has had and last week when he called in he was able to get the rx without problem. Advised pt that provider that wrote rx is not in the office today and that the provider addressing his request is recommending pt be seen to follow state law. Pt again upset stating that he is busy until 4pm today with his grandson and taking his grandson to appt's. He is unable to come into office any earlier. Pt states he needs this cough syrup to be able to sleep. He states his coughing spells start around 7-8pm and then is unable to sleep. Appt scheduled. *Pt saw Gavin to transfer care in January, but has never officially seen Dr. Jung. Pt will need to schedule an appt with Dr. Jung. Wesley Kong LPN I have never seen him. Unfortunately, Since it is a class III opiate, State laws require him to be seen by the provider prescribing unless we have specifically have seen him before and for this problem.. Would need appt with one of us to see. Legally I am not supposed to prescribe since I do not know him plus, I cannot even recall last time I prescribed an opiate cough med. Some pharmacies are not even carrying this any longer. Patient upset about not getting refill states that was not a problem getting a refill before. Requesting call from the provider. Would like this cancelled. States this is the only thing that works for him. That is not something he should continue. It is an opiate. Switched to a nonnarcotic cough med. Pt called and reports he was seen in [facility] and treated for Flu A. Symptoms have all left except the cough and it is persisting. Asking for a refill on cough medication. Cough medication was helping. Please advise pt. Erendira Cope LPN documented in this encounter [facility] 06-20-2022 Miscellaneous Notes Call to pt notified him that Rx has been sent in for him. Pt verified which Rx it was and states this is generally what helps him the most. He gets this once a year. Appreciates this being sent in. Vanda Mar Ma OK for cough medicine as ordered Elma Jung MD Patient calls and states that he was just recently diagnosed with Influenza A. Patient states that his cough has been keeping him up at night. Patient states that he has not been able to sleep. Patient calling to ask if provider can send in a prescription of a cough syrup with codeine in it. Patient states that this usually helps him to sleep. Patient currently is on Tamiflu. Please give patient a call back if able to send in prescription. Please review and advise, Ade Kuo RN documented in this encounter [facility] 06-19-2022 Miscellaneous Notes This [employer]CH[employer]IC called patient at [phone] and identified with name and . Informed of positive influenza A, in window for tamiflu, prescription sent to pharmacy. Advised of side effects All questions answered. Eliza Valero CNP documented in this encounter [facility] 06-18-2022 Influenza virus A and B RNA and SARS-CoV-2 (COVID-19) N gene panel ARCHIE+probe (Resp) COVID 19 RESULT: SARS-CoV-2 (Agent of COVID-19) Not Detected by RT-PCR or equivalent method. fernanda [id number] (BRANDON)_EUA This test was developed and its performance characteristics determined by [facility]'s [facility] [place]. This test has been authorized by FDA under an Emergency Use Authorization (EUA). This test has been validated in accordance with the FDA's Guidance Document Policy for Diagnostics Testing in Laboratories Certified to Perform High Complexity Testing under CLIA prior to Emergency use Authorization for Coronavirus Disease 2019 during the Public Health Emergency issued on August 21, 2019. Test performed by [facility], [facility] [place], [address] [address]. INFLUENZA A PCR: Positive for Influenza A by RT-PCR INFLUENZA B PCR: Negative for Influenza B by RT-PCR [facility] documented as of this encounter (statuses as of 10/24/2021) [facility] History of Past illness Narrative* Problem Noted Date Resolved Date Rotator cuff syndrome of both shoulders 07/27/19 16 11/28/2015 Atrial fibrillation 11/06/2014 11/23/2014 Overview: History: no pre op history Assessment: post op AF on 11/06, maintaining sinus Plan: con't amio taper and beta tico, no AC per CTS YOLANDA (acute kidney injury) 11/04/20142014 Overview: Hx of YOLANDA (Scr 2.1) in August 2014 during admission for bactermia/diagnosis of PVE. A/P -resolved Blood loss anemia 11/04/2014 09/13/2016 Overview: History: recent OHS Assessment: stable, no s/s of bleeding noted Plan: repeat labs in OPD Hypotension 11/02/2014 11/03/2014 Overview: A/P: Refractory to fluid resuscitation, requiring NE infusion. Transfusing 1pRBC. Goal maps >65 On mechanically assisted ventilation 11/02/2014 11/03/2014 Overview: Grade II: WTE as tolerated Hypoxemia 11/02/2014 11/03/2014 Overview: A/P: Initial pO2 was 63 on arrival to ICU, FiO2 increased to 60%. Monitor ABGs Preop testing 11/01/2014 11/03/2014 Overview: Redo AVR Surgeon: Amandeep Putnam M.D. Informed Consent Completed: yes STS Score: p CAD: Yes - CAD on Problem List: Yes Is intended procedure a CABG: No - is a beta tico ordered? Yes H & P completed: Yes PA/LAT: Pending CT: Pending MRI: N/A LE US: N/A Cath: Pending Echo:completed EKG: Pending EF %: 55 PI's: (R)50dom (L)72 Carotid: Completed Mapping: Pending Dental: Pending PFT's: N/A Basename 10/30/14 0632 WBC 6.65 HB 10.0* HCT 30.2* PLT 217 INR 1.0 CREAT 1.06 UA:negative 10/29/14 HCG:N/A ABO/ABO Confirmed: O neg/neg 11/01/14 Blood ordered: No SA Swab: Yes - results: Neg SA/MRSA Last Dose of Anticoagulation: SC Heparin Op Note: Yes, 2001 Pacemaker Check: N/A Consults: ID, Interventional Cardiology, Dentistry DM: Yes HBA1C, [place] (%) Date Value 03/30/2011 6.0 Hemoglobin A1C (%) Date Value 07/13/2014 5.7 Cardiac Surgical prep: Yes 5 meter walk test completed. 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 08/09/2013 11/03/2014 Lateral epicondylitis of left elbow 03/11/2013 10/20/2014 Lumbar disc herniation with radiculopathy 200907/15/2014 Disorders of bursae and tend ons in shoulder region, unspecified 04/14/2007 07/15/2014 GEN CONVUL EPI W/O MENTN INTRACT 11/03/2006 07/15/2014 SKIN CARCINOMA LIP, SKIN OF 05/19/200606/24 DIABETES MELLITUS TYPE II UNCONTR UNCOMPL 200407/15/2014 Other and unspecified hyperlipidemia 06/18/2005 06/09/2013 documented as of this encounter (statuses as of 10/24/2021) [facility] History of Past illness Narrative* Problem Noted Date Resolved Date Rotator cuff syndrome of both shoulders 07/27/19 16 11/28/2015 Atrial fibrillation 11/06/2014 11/23/2014 Overview: History: no pre op history Assessment: post op AF on 11/06, maintaining sinus Plan: con't amio taper and beta tico, no AC per CTS YOLANDA (acute kidney injury) 11/04/20142014 Overview: Hx of YOLANDA (Scr 2.1) in August 2014 during admission for bactermia/diagnosis of PVE. A/P -resolved Blood loss anemia 11/04/2014 09/13/2016 Overview: History: recent OHS Assessment: stable, no s/s of bleeding noted Plan: repeat labs in OPD Hypotension 11/02/2014 11/03/2014 Overview: A/P: Refractory to fluid resuscitation, requiring NE infusion. Transfusing 1pRBC. Goal maps >65 On mechanically assisted ventilation 11/02/2014 11/03/2014 Overview: Grade II: WTE as tolerated Hypoxemia 11/02/2014 11/03/2014 Overview: A/P: Initial pO2 was 63 on arrival to ICU, FiO2 increased to 60%. Monitor ABGs Preop testing 11/01/2014 11/03/2014 Overview: Redo AVR Surgeon: Amandeep Putnam M.D. Informed Consent Completed: yes STS Score: p CAD: Yes - CAD on Problem List: Yes Is intended procedure a CABG: No - is a beta tico ordered? Yes H & P completed: Yes PA/LAT: Pending CT: Pending MRI: N/A LE US: N/A Cath: Pending Echo:completed EKG: Pending EF %: 55 PI's: (R)50dom (L)72 Carotid: Completed Mapping: Pending Dental: Pending PFT's: N/A Basename 10/30/14 0632 WBC 6.65 HB 10.0* HCT 30.2* PLT 217 INR 1.0 CREAT 1.06 UA:negative 10/29/14 HCG:N/A ABO/ABO Confirmed: O neg/neg 11/01/14 Blood ordered: No SA Swab: Yes - results: Neg SA/MRSA Last Dose of Anticoagulation: SC Heparin Op Note: Yes, 2001 Pacemaker Check: N/A Consults: ID, Interventional Cardiology, Dentistry DM: Yes HBA1C, [place] (%) Date Value 03/30/2011 6.0 Hemoglobin A1C (%) Date Value 07/13/2014 5.7 Cardiac Surgical prep: Yes 5 meter walk test completed. 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 08/09/2013 11/03/2014 Lateral epicondylitis of left elbow 03/11/2013 10/20/2014 Lumbar disc herniation with radiculopathy 200907/15/2014 Disorders of bursae and tend ons in shoulder region, unspecified 04/14/2007 07/15/2014 GEN CONVUL EPI W/O MENTN INTRACT 11/03/2006 07/15/2014 SKIN CARCINOMA LIP, SKIN OF 05/19/200606/24 DIABETES MELLITUS TYPE II UNCONTR UNCOMPL 200407/15/2014 Other and unspecified hyperlipidemia 06/18/2005 06/09/2013 documented as of this encounter (statuses as of 10/31/2021) [facility] History of Past illness Narrative* Problem Noted Date Resolved Date Rotator cuff syndrome of both shoulders 07/27/19 16 11/28/2015 Atrial fibrillation 11/06/2014 11/23/2014 Overview: History: no pre op history Assessment: post op AF on 11/06, maintaining sinus Plan: con't amio taper and beta tico, no AC per CTS YOLANDA (acute kidney injury) 11/04/20142014 Overview: Hx of YOLANDA (Scr 2.1) in August 2014 during admission for bactermia/diagnosis of PVE. A/P -resolved Blood loss anemia 11/04/2014 09/13/2016 Overview: History: recent OHS Assessment: stable, no s/s of bleeding noted Plan: repeat labs in OPD Hypotension 11/02/2014 11/03/2014 Overview: A/P: Refractory to fluid resuscitation, requiring NE infusion. Transfusing 1pRBC. Goal maps >65 On mechanically assisted ventilation 11/02/2014 11/03/2014 Overview: Grade II: WTE as tolerated Hypoxemia 11/02/2014 11/03/2014 Overview: A/P: Initial pO2 was 63 on arrival to ICU, FiO2 increased to 60%. Monitor ABGs Preop testing 11/01/2014 11/03/2014 Overview: Redo AVR Surgeon: Amandeep Putnam M.D. Informed Consent Completed: yes STS Score: p CAD: Yes - CAD on Problem List: Yes Is intended procedure a CABG: No - is a beta tico ordered? Yes H & P completed: Yes PA/LAT: Pending CT: Pending MRI: N/A LE US: N/A Cath: Pending Echo:completed EKG: Pending EF %: 55 PI's: (R)50dom (L)72 Carotid: Completed Mapping: Pending Dental: Pending PFT's: N/A Basename 10/30/14 0632 WBC 6.65 HB 10.0* HCT 30.2* PLT 217 INR 1.0 CREAT 1.06 UA:negative 10/29/14 HCG:N/A ABO/ABO Confirmed: O neg/neg 11/01/14 Blood ordered: No SA Swab: Yes - results: Neg SA/MRSA Last Dose of Anticoagulation: SC Heparin Op Note: Yes, 2001 Pacemaker Check: N/A Consults: ID, Interventional Cardiology, Dentistry DM: Yes HBA1C [place] (%) Date Value 03/30/2011 6.0 Hemoglobin A1C (%) Date Value 07/13/2014 5.7 Cardiac Surgical prep: Yes 5 meter walk test completed. 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 08/09/2013 11/03/2014 Lateral epicondylitis of left elbow 03/11/2013 10/20/2014 Lumbar disc herniation with radiculopathy 200907/15/2014 Disorders of bursae and tend ons in shoulder region, unspecified 04/14/2007 07/15/2014 GEN CONVUL EPI W/O MENTN INTRACT 11/03/2006 07/15/2014 SKIN CARCINOMA LIP, SKIN OF 05/19/200606/24 DIABETES MELLITUS TYPE II UNCONTR UNCOMPL 200407/15/2014 Other and unspecified hyperlipidemia 06/18/2005 06/09/2013 documented as of this encounter (statuses as of 11/01/2021) [facility] History of Past illness Narrative* Problem Noted Date Resolved Date Rotator cuff syndrome of both shoulders 07/27/19 16 11/28/2015 Atrial fibrillation 11/06/2014 11/23/2014 Overview: History: no pre op history Assessment: post op AF on 11/06, maintaining sinus Plan: con't amio taper and beta tico, no AC per CTS YOLANDA (acute kidney injury) 11/04/20142014 Overview: Hx of YOLANDA (Scr 2.1) in August 2014 during admission for bactermia/diagnosis of PVE. A/P -resolved Blood loss anemia 11/04/2014 09/13/2016 Overview: History: recent OHS Assessment: stable, no s/s of bleeding noted Plan: repeat labs in OPD Hypotension 11/02/2014 11/03/2014 Overview: A/P: Refractory to fluid resuscitation, requiring NE infusion. Transfusing 1pRBC. Goal maps >65 On mechanically assisted ventilation 11/02/2014 11/03/2014 Overview: Grade II: WTE as tolerated Hypoxemia 11/02/2014 11/03/2014 Overview: A/P: Initial pO2 was 63 on arrival to ICU, FiO2 increased to 60%. Monitor ABGs Preop testing 11/01/2014 11/03/2014 Overview: Redo AVR Surgeon: Amandeep Putnam M.D. Informed Consent Completed: yes STS Score: p CAD: Yes - CAD on Problem List: Yes Is intended procedure a CABG: No - is a beta tico ordered? Yes H & P completed: Yes PA/LAT: Pending CT: Pending MRI: N/A LE US: N/A Cath: Pending Echo:completed EKG: Pending EF %: 55 PI's: (R)50dom (L)72 Carotid: Completed Mapping: Pending Dental: Pending PFT's: N/A Basename 10/30/14 0632 WBC 6.65 HB 10.0* HCT 30.2* PLT 217 INR 1.0 CREAT 1.06 UA:negative 10/29/14 HCG:N/A ABO/ABO Confirmed: O neg/neg 11/01/14 Blood ordered: No SA Swab: Yes - results: Neg SA/MRSA Last Dose of Anticoagulation: SC Heparin Op Note: Yes, 2001 Pacemaker Check: N/A Consults: ID, Interventional Cardiology, Dentistry DM: Yes HBA1C, [place] (%) Date Value 03/30/2011 6.0 Hemoglobin A1C (%) Date Value 07/13/2014 5.7 Cardiac Surgical prep: Yes 5 meter walk test completed. 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 08/09/2013 11/03/2014 Lateral epicondylitis of left elbow 03/11/2013 10/20/2014 Lumbar disc herniation with radiculopathy 200907/15/2014 Disorders of bursae and tend ons in shoulder region, unspecified 04/14/2007 07/15/2014 GEN CONVUL EPI W/O MENTN INTRACT 11/03/2006 07/15/2014 SKIN CARCINOMA LIP, SKIN OF 05/19/200606/24 DIABETES MELLITUS TYPE II UNCONTR UNCOMPL 200407/15/2014 Other and unspecified hyperlipidemia 06/18/2005 06/09/2013 documented as of this encounter (statuses as of 11/05/2021) [facility] History of Past illness Narrative* Problem Noted Date Resolved Date Rotator cuff syndrome of both shoulders 07/27/19 16 11/28/2015 Atrial fibrillation 11/06/2014 11/23/2014 Overview: History: no pre op history Assessment: post op AF on 11/06, maintaining sinus Plan: con't amio taper and beta tico, no AC per CTS YOLANDA (acute kidney injury) 11/04/20142014 Overview: Hx of YOLANDA (Scr 2.1) in August 2014 during admission for bactermia/diagnosis of PVE. A/P -resolved Blood loss anemia 11/04/2014 09/13/2016 Overview: History: recent OHS Assessment: stable, no s/s of bleeding noted Plan: repeat labs in OPD Hypotension 11/02/2014 11/03/2014 Overview: A/P: Refractory to fluid resuscitation, requiring NE infusion. Transfusing 1pRBC. Goal maps >65 On mechanically assisted ventilation 11/02/2014 11/03/2014 Overview: Grade II: WTE as tolerated Hypoxemia 11/02/2014 11/03/2014 Overview: A/P: Initial pO2 was 63 on arrival to ICU, FiO2 increased to 60%. Monitor ABGs Preop testing 11/01/2014 11/03/2014 Overview: Redo AVR Surgeon: Amandeep Putnam M.D. Informed Consent Completed: yes STS Score: p CAD: Yes - CAD on Problem List: Yes Is intended procedure a CABG: No - is a beta tico ordered? Yes H & P completed: Yes PA/LAT: Pending CT: Pending MRI: N/A LE US: N/A Cath: Pending Echo:completed EKG: Pending EF %: 55 PI's: (R)50dom (L)72 Carotid: Completed Mapping: Pending Dental: Pending PFT's: N/A Basename 10/30/14 0632 WBC 6.65 HB 10.0* HCT 30.2* PLT 217 INR 1.0 CREAT 1.06 UA:negative 10/29/14 HCG:N/A ABO/ABO Confirmed: O neg/neg 11/01/14 Blood ordered: No SA Swab: Yes - results: Neg SA/MRSA Last Dose of Anticoagulation: SC Heparin Op Note: Yes, 2001 Pacemaker Check: N/A Consults: ID, Interventional Cardiology, Dentistry DM: Yes HBA1C, [place] (%) Date Value 03/30/2011 6.0 Hemoglobin A1C (%) Date Value 07/13/2014 5.7 Cardiac Surgical prep: Yes 5 meter walk test completed. 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 08/09/2013 11/03/2014 Lateral epicondylitis of left elbow 03/11/2013 10/20/2014 Lumbar disc herniation with radiculopathy 200907/15/2014 Disorders of bursae and tend ons in shoulder region, unspecified 04/14/2007 07/15/2014 GEN CONVUL EPI W/O MENTN INTRACT 11/03/2006 07/15/2014 SKIN CARCINOMA LIP, SKIN OF 05/19/200606/24 DIABETES MELLITUS TYPE II UNCONTR UNCOMPL 200407/15/2014 Other and unspecified hyperlipidemia 06/18/2005 06/09/2013 documented as of this encounter (statuses as of 11/14/2021) [facility]2016 History of Past illness Narrative* Problem Noted Date Resolved Date Rotator cuff syndrome of both shoulders 07/27/19 16 11/28/2015 Atrial fibrillation 11/06/2014 11/23/2014 Overview: History: no pre op history Assessment: post op AF on 11/06, maintaining sinus Plan: con't amio taper and beta tico, no AC per CTS YOLANDA (acute kidney injury) 11/04/20142014 Overview: Hx of YOLANDA (Scr 2.1) in August 2014 during admission for bactermia/diagnosis of PVE. A/P -resolved Blood loss anemia 11/04/2014 09/13/2016 Overview: History: recent OHS Assessment: stable, no s/s of bleeding noted Plan: repeat labs in OPD Hypotension 11/02/2014 11/03/2014 Overview: A/P: Refractory to fluid resuscitation, requiring NE infusion. Transfusing 1pRBC. Goal maps >65 On mechanically assisted ventilation 11/02/2014 11/03/2014 Overview: Grade II: WTE as tolerated Hypoxemia 11/02/2014 11/03/2014 Overview: A/P: Initial pO2 was 63 on arrival to ICU, FiO2 increased to 60%. Monitor ABGs Preop testing 11/01/2014 11/03/2014 Overview: [facility] Surgeon: Amandeep Putnam M.D. Informed Consent Completed: yes STS Score: p CAD: Yes - CAD on Problem List: Yes Is intended procedure a CABG: No - is a beta tico ordered? Yes H & P completed: Yes PA/LAT: Pending CT: Pending MRI: N/A LE US: N/A Cath: Pending Echo:completed EKG: Pending EF %: 55 PI's: (R)50dom (L)72 Carotid: Completed Mapping: Pending Dental: Pending PFT's: N/A Basename 10/30/14 0632 WBC 6.65 HB 10.0* HCT 30.2* PLT 217 INR 1.0 CREAT 1.06 UA:negative 10/29/14 HCG:N/A ABO/ABO Confirmed: O neg/neg 11/01/14 Blood ordered: No SA Swab: Yes - results: Neg SA/MRSA Last Dose of Anticoagulation: SC Heparin Op Note: Yes, 2001 Pacemaker Check: N/A Consults: ID, Interventional Cardiology, Dentistry DM: Yes HBA1C, [place] (%) Date Value 03/30/2011 6.0 Hemoglobin A1C (%) Date Value 07/13/2014 5.7 Cardiac Surgical prep: Yes 5 meter walk test completed. 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 08/09/2013 11/03/2014 Lateral epicondylitis of left elbow 03/11/2013 10/20/2014 Lumbar disc herniation with radiculopathy 200907/15/2014 Disorders of bursae and tend ons in shoulder region, unspecified 04/14/2007 07/15/2014 GEN CONVUL EPI W/O MENTN INTRACT 11/03/2006 07/15/2014 SKIN CARCINOMA LIP, SKIN OF 05/19/200606/24 DIABETES MELLITUS TYPE II UNCONTR UNCOMPL 200407/15/2014 Other and unspecified hyperlipidemia 06/18/2005 06/09/2013 documented as of this encounter (statuses as of 12/07/2021) [facility] History of Past illness Narrative* Problem Noted Date Resolved Date Rotator cuff syndrome of both shoulders 07/27/19 16 11/28/2015 Atrial fibrillation 11/06/2014 11/23/2014 Overview: History: no pre op history Assessment: post op AF on 11/06, maintaining sinus Plan: con't amio taper and beta tico, no AC per CTS YOLANDA (acute kidney injury) 11/04/20142014 Overview: Hx of YOLANDA (Scr 2.1) in August 2014 during admission for bactermia/diagnosis of PVE. A/P -resolved Blood loss anemia 11/04/2014 09/13/2016 Overview: History: recent OHS Assessment: stable, no s/s of bleeding noted Plan: repeat labs in OPD Hypotension 11/02/2014 11/03/2014 Overview: A/P: Refractory to fluid resuscitation, requiring NE infusion. Transfusing 1pRBC. Goal maps >65 On mechanically assisted ventilation 11/02/2014 11/03/2014 Overview: Grade II: WTE as tolerated Hypoxemia 11/02/2014 11/03/2014 Overview: A/P: Initial pO2 was 63 on arrival to ICU, FiO2 increased to 60%. Monitor ABGs Preop testing 11/01/2014 11/03/2014 Overview: [facility] Surgeon: Amandeep Putnam M.D. Informed Consent Completed: yes STS Score: p CAD: Yes - CAD on Problem List: Yes Is intended procedure a CABG: No - is a beta tico ordered? Yes H & P completed: Yes PA/LAT: Pending CT: Pending MRI: N/A LE US: N/A Cath: Pending Echo:completed EKG: Pending EF %: 55 PI's: (R)50dom (L)72 Carotid: Completed Mapping: Pending Dental: Pending PFT's: N/A Basename 10/30/14 0632 WBC 6.65 HB 10.0* HCT 30.2* PLT 217 INR 1.0 CREAT 1.06 UA:negative 10/29/14 HCG:N/A ABO/ABO Confirmed: O neg/neg 11/01/14 Blood ordered: No SA Swab: Yes - results: Neg SA/MRSA Last Dose of Anticoagulation: SC Heparin Op Note: Yes, 2001 Pacemaker Check: N/A Consults: ID, Interventional Cardiology, Dentistry DM: Yes HBA1C, [place] (%) Date Value 03/30/2011 6.0 Hemoglobin A1C (%) Date Value 07/13/2014 5.7 Cardiac Surgical prep: Yes 5 meter walk test completed. 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 08/09/2013 11/03/2014 Lateral epicondylitis of left elbow 03/11/2013 10/20/2014 Lumbar disc herniation with radiculopathy 200907/15/2014 Disorders of bursae and tend ons in shoulder region, unspecified 04/14/2007 07/15/2014 GEN CONVUL EPI W/O MENTN INTRACT 11/03/2006 07/15/2014 SKIN CARCINOMA LIP, SKIN OF 05/19/200606/24 DIABETES MELLITUS TYPE II UNCONTR UNCOMPL 200407/15/2014 Other and unspecified hyperlipidemia 06/18/2005 06/09/2013 documented as of this encounter (statuses as of 01/29/2022) [facility] History of Past illness Narrative* Problem Noted Date Resolved Date Rotator cuff syndrome of both shoulders 07/27/19 16 11/28/2015 Atrial fibrillation 11/06/2014 11/23/2014 Overview: History: no pre op history Assessment: post op AF on 11/06, maintaining sinus Plan: con't amio taper and beta tico, no AC per CTS YOLANDA (acute kidney injury) 11/04/20142014 Overview: Hx of YOLANDA (Scr 2.1) in August 2014 during admission for bactermia/diagnosis of PVE. A/P -resolved Blood loss anemia 11/04/2014 09/13/2016 Overview: History: recent OHS Assessment: stable, no s/s of bleeding noted Plan: repeat labs in OPD Hypotension 11/02/2014 11/03/2014 Overview: A/P: Refractory to fluid resuscitation, requiring NE infusion. Transfusing 1pRBC. Goal maps >65 On mechanically assisted ventilation 11/02/2014 11/03/2014 Overview: Grade II: WTE as tolerated Hypoxemia 11/02/2014 11/03/2014 Overview: A/P: Initial pO2 was 63 on arrival to ICU, FiO2 increased to 60%. Monitor ABGs Preop testing 11/01/2014 11/03/2014 Overview: [facility] Surgeon: Amandeep Putnam M.D. Informed Consent Completed: yes STS Score: p CAD: Yes - CAD on Problem List: Yes Is intended procedure a CABG: No - is a beta tico ordered? Yes H & P completed: Yes PA/LAT: Pending CT: Pending MRI: N/A LE US: N/A Cath: Pending Echo:completed EKG: Pending EF %: 55 PI's: (R)50dom (L)72 Carotid: Completed Mapping: Pending Dental: Pending PFT's: N/A Basename 10/30/14 0632 WBC 6.65 HB 10.0* HCT 30.2* PLT 217 INR 1.0 CREAT 1.06 UA:negative 10/29/14 HCG:N/A ABO/ABO Confirmed: O neg/neg 11/01/14 Blood ordered: No SA Swab: Yes - results: Neg SA/MRSA Last Dose of Anticoagulation: SC Heparin Op Note: Yes, 2001 Pacemaker Check: N/A Consults: ID, Interventional Cardiology, Dentistry DM: Yes HBA1C, [place] (%) Date Value 03/30/2011 6.0 Hemoglobin A1C (%) Date Value 07/13/2014 5.7 Cardiac Surgical prep: Yes 5 meter walk test completed. 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 08/09/2013 11/03/2014 Lateral epicondylitis of left elbow 03/11/2013 10/20/2014 Lumbar disc herniation with radiculopathy 200907/15/2014 Disorders of bursae and tend ons in shoulder region, unspecified 04/14/2007 07/15/2014 GEN CONVUL EPI W/O MENTN INTRACT 11/03/2006 07/15/2014 SKIN CARCINOMA LIP, SKIN OF 05/19/200606/24 DIABETES MELLITUS TYPE II UNCONTR UNCOMPL 200407/15/2014 Other and unspecified hyperlipidemia 06/18/2005 06/09/2013 documented as of this encounter (statuses as of 02/04/2022) [facility] History of Past illness Narrative* Problem Noted Date Resolved Date Rotator cuff syndrome of both shoulders 07/27/19 16 11/28/2015 Atrial fibrillation 11/06/2014 11/23/2014 Overview: History: no pre op history Assessment: post op AF on 11/06, maintaining sinus Plan: con't amio taper and beta tico, no AC per CTS YOLANDA (acute kidney injury) 11/04/20142014 Overview: Hx of YOLANDA (Scr 2.1) in August 2014 during admission for bactermia/diagnosis of PVE. A/P -resolved Blood loss anemia 11/04/2014 09/13/2016 Overview: History: recent OHS Assessment: stable, no s/s of bleeding noted Plan: repeat labs in OPD Hypotension 11/02/2014 11/03/2014 Overview: A/P: Refractory to fluid resuscitation, requiring NE infusion. Transfusing 1pRBC. Goal maps >65 On mechanically assisted ventilation 11/02/2014 11/03/2014 Overview: Grade II: WTE as tolerated Hypoxemia 11/02/2014 11/03/2014 Overview: A/P: Initial pO2 was 63 on arrival to ICU, FiO2 increased to 60%. Monitor ABGs Preop testing 11/01/2014 11/03/2014 Overview: [facility] Surgeon: Amandeep Putnam M.D. Informed Consent Completed: yes STS Score: p CAD: Yes - CAD on Problem List: Yes Is intended procedure a CABG: No - is a beta tico ordered? Yes H & P completed: Yes PA/LAT: Pending CT: Pending MRI: N/A LE US: N/A Cath: Pending Echo:completed EKG: Pending EF %: 55 PI's: (R)50dom (L)72 Carotid: Completed Mapping: Pending Dental: Pending PFT's: N/A Basename 10/30/14 0632 WBC 6.65 HB 10.0* HCT 30.2* PLT 217 INR 1.0 CREAT 1.06 UA:negative 10/29/14 HCG:N/A ABO/ABO Confirmed: O neg/neg 11/01/14 Blood ordered: No SA Swab: Yes - results: Neg SA/MRSA Last Dose of Anticoagulation: SC Heparin Op Note: Yes, 2001 Pacemaker Check: N/A Consults: ID, Interventional Cardiology, Dentistry DM: Yes HBA1C, [place] (%) Date Value 03/30/2011 6.0 Hemoglobin A1C (%) Date Value 07/13/2014 5.7 Cardiac Surgical prep: Yes 5 meter walk test completed. 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 08/09/2013 11/03/2014 Lateral epicondylitis of left elbow 03/11/2013 10/20/2014 Lumbar disc herniation with radiculopathy 200907/15/2014 Disorders of bursae and tend ons in shoulder region, unspecified 04/14/2007 07/15/2014 GEN CONVUL EPI W/O MENTN INTRACT 11/03/2006 07/15/2014 SKIN CARCINOMA LIP, SKIN OF 05/19/200606/24 DIABETES MELLITUS TYPE II UNCONTR UNCOMPL 200407/15/2014 Other and unspecified hyperlipidemia 06/18/2005 06/09/2013 documented as of this encounter (statuses as of 02/21/2022) [facility] History of Past illness Narrative* Problem Noted Date Resolved Date Rotator cuff syndrome of both shoulders 07/27/19 16 11/28/2015 Atrial fibrillation 11/06/2014 11/23/2014 Overview: History: no pre op history Assessment: post op AF on 11/06, maintaining sinus Plan: con't amio taper and beta tico, no AC per CTS YOLANDA (acute kidney injury) 11/04/20142014 Overview: Hx of YOLANDA (Scr 2.1) in August 2014 during admission for bactermia/diagnosis of PVE. A/P -resolved Blood loss anemia 11/04/2014 09/13/2016 Overview: History: recent OHS Assessment: stable, no s/s of bleeding noted Plan: repeat labs in OPD Hypotension 11/02/2014 11/03/2014 Overview: A/P: Refractory to fluid resuscitation, requiring NE infusion. Transfusing 1pRBC. Goal maps >65 On mechanically assisted ventilation 11/02/2014 11/03/2014 Overview: Grade II: WTE as tolerated Hypoxemia 11/02/2014 11/03/2014 Overview: A/P: Initial pO2 was 63 on arrival to ICU, FiO2 increased to 60%. Monitor ABGs Preop testing 11/01/2014 11/03/2014 Overview: [facility] Surgeon: Amandeep Putnam M.D. Informed Consent Completed: yes STS Score: p CAD: Yes - CAD on Problem List: Yes Is intended procedure a CABG: No - is a beta tico ordered? Yes H & P completed: Yes PA/LAT: Pending CT: Pending MRI: N/A LE US: N/A Cath: Pending Echo:completed EKG: Pending EF %: 55 PI's: (R)50dom (L)72 Carotid: Completed Mapping: Pending Dental: Pending PFT's: N/A Basename 10/30/14 0632 WBC 6.65 HB 10.0* HCT 30.2* PLT 217 INR 1.0 CREAT 1.06 UA:negative 10/29/14 HCG:N/A ABO/ABO Confirmed: O neg/neg 11/01/14 Blood ordered: No SA Swab: Yes - results: Neg SA/MRSA Last Dose of Anticoagulation: SC Heparin Op Note: Yes, 2001 Pacemaker Check: N/A Consults: ID, Interventional Cardiology, Dentistry DM: Yes HBA1C, [place] (%) Date Value 03/30/2011 6.0 Hemoglobin A1C (%) Date Value 07/13/2014 5.7 Cardiac Surgical prep: Yes 5 meter walk test completed. 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 08/09/2013 11/03/2014 Lateral epicondylitis of left elbow 03/11/2013 10/20/2014 Lumbar disc herniation with radiculopathy 200907/15/2014 Disorders of bursae and tend ons in shoulder region, unspecified 04/14/2007 07/15/2014 GEN CONVUL EPI W/O MENTN INTRACT 11/03/2006 07/15/2014 SKIN CARCINOMA LIP, SKIN OF 05/19/200606/24 DIABETES MELLITUS TYPE II UNCONTR UNCOMPL 200407/15/2014 Other and unspecified hyperlipidemia 06/18/2005 06/09/2013 documented as of this encounter (statuses as of 02/21/2022) [facility] History of Past illness Narrative* Problem Noted Date Resolved Date Rotator cuff syndrome of both shoulders 07/27/19 16 11/28/2015 Atrial fibrillation 11/06/2014 11/23/2014 Overview: History: no pre op history Assessment: post op AF on 11/06, maintaining sinus Plan: con't amio taper and beta tico, no AC per CTS YOLANDA (acute kidney injury) 11/04/20142014 Overview: Hx of YOLANDA (Scr 2.1) in August 2014 during admission for bactermia/diagnosis of PVE. A/P -resolved Blood loss anemia 11/04/2014 09/13/2016 Overview: History: recent OHS Assessment: stable, no s/s of bleeding noted Plan: repeat labs in OPD Hypotension 11/02/2014 11/03/2014 Overview: A/P: Refractory to fluid resuscitation, requiring NE infusion. Transfusing 1pRBC. Goal maps >65 On mechanically assisted ventilation 11/02/2014 11/03/2014 Overview: Grade II: WTE as tolerated Hypoxemia 11/02/2014 11/03/2014 Overview: A/P: Initial pO2 was 63 on arrival to ICU, FiO2 increased to 60%. Monitor ABGs Preop testing 11/01/2014 11/03/2014 Overview: [facility] Surgeon: Amandeep Putnam M.D. Informed Consent Completed: yes STS Score: p CAD: Yes - CAD on Problem List: Yes Is intended procedure a CABG: No - is a beta tico ordered? Yes H & P completed: Yes PA/LAT: Pending CT: Pending MRI: N/A LE US: N/A Cath: Pending Echo:completed EKG: Pending EF %: 55 PI's: (R)50dom (L)72 Carotid: Completed Mapping: Pending Dental: Pending PFT's: N/A Basename 10/30/14 0632 WBC 6.65 HB 10.0* HCT 30.2* PLT 217 INR 1.0 CREAT 1.06 UA:negative 10/29/14 HCG:N/A ABO/ABO Confirmed: O neg/neg 11/01/14 Blood ordered: No SA Swab: Yes - results: Neg SA/MRSA Last Dose of Anticoagulation: SC Heparin Op Note: Yes, 2001 Pacemaker Check: N/A Consults: ID, Interventional Cardiology, Dentistry DM: Yes HBA1C, [place] (%) Date Value 03/30/2011 6.0 Hemoglobin A1C (%) Date Value 07/13/2014 5.7 Cardiac Surgical prep: Yes 5 meter walk test completed. 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 08/09/2013 11/03/2014 Lateral epicondylitis of left elbow 03/11/2013 10/20/2014 Lumbar disc herniation with radiculopathy 200907/15/2014 Disorders of bursae and tend ons in shoulder region, unspecified 04/14/2007 07/15/2014 GEN CONVUL EPI W/O MENTN INTRACT 11/03/2006 07/15/2014 SKIN CARCINOMA LIP, SKIN OF 05/19/200606/24 DIABETES MELLITUS TYPE II UNCONTR UNCOMPL 200407/15/2014 Other and unspecified hyperlipidemia 06/18/2005 06/09/2013 documented as of this encounter (statuses as of 03/08/2022) [facility] History of Past illness Narrative* Problem Noted Date Resolved Date Rotator cuff syndrome of both shoulders 07/27/19 16 11/28/2015 Atrial fibrillation 11/06/2014 11/23/2014 Overview: History: no pre op history Assessment: post op AF on 11/06, maintaining sinus Plan: con't amio taper and beta tico, no AC per CTS YOLANDA (acute kidney injury) 11/04/20142014 Overview: Hx of YOLANDA (Scr 2.1) in August 2014 during admission for bactermia/diagnosis of PVE. A/P -resolved Blood loss anemia 11/04/2014 09/13/2016 Overview: History: recent OHS Assessment: stable, no s/s of bleeding noted Plan: repeat labs in OPD Hypotension 11/02/2014 11/03/2014 Overview: A/P: Refractory to fluid resuscitation, requiring NE infusion. Transfusing 1pRBC. Goal maps >65 On mechanically assisted ventilation 11/02/2014 11/03/2014 Overview: Grade II: WTE as tolerated Hypoxemia 11/02/2014 11/03/2014 Overview: A/P: Initial pO2 was 63 on arrival to ICU, FiO2 increased to 60%. Monitor ABGs Preop testing 11/01/2014 11/03/2014 Overview: [facility] Surgeon: Amandeep Putnam M.D. Informed Consent Completed: yes STS Score: p CAD: Yes - CAD on Problem List: Yes Is intended procedure a CABG: No - is a beta tico ordered? Yes H & P completed: Yes PA/LAT: Pending CT: Pending MRI: N/A LE US: N/A Cath: Pending Echo:completed EKG: Pending EF %: 55 PI's: (R)50dom (L)72 Carotid: Completed Mapping: Pending Dental: Pending PFT's: N/A Basename 10/30/14 0632 WBC 6.65 HB 10.0* HCT 30.2* PLT 217 INR 1.0 CREAT 1.06 UA:negative 10/29/14 HCG:N/A ABO/ABO Confirmed: O neg/neg 11/01/14 Blood ordered: No SA Swab: Yes - results: Neg SA/MRSA Last Dose of Anticoagulation: SC Heparin Op Note: Yes, 2001 Pacemaker Check: N/A Consults: ID, Interventional Cardiology, Dentistry DM: Yes HBA1C, [place] (%) Date Value 03/30/2011 6.0 Hemoglobin A1C (%) Date Value 07/13/2014 5.7 Cardiac Surgical prep: Yes 5 meter walk test completed. 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 08/09/2013 11/03/2014 Lateral epicondylitis of left elbow 03/11/2013 10/20/2014 Lumbar disc herniation with radiculopathy 200907/15/2014 Disorders of bursae and tend ons in shoulder region, unspecified 04/14/2007 07/15/2014 GEN CONVUL EPI W/O MENTN INTRACT 11/03/2006 07/15/2014 SKIN CARCINOMA LIP, SKIN OF 05/19/200606/24 DIABETES MELLITUS TYPE II UNCONTR UNCOMPL 200407/15/2014 Other and unspecified hyperlipidemia 06/18/2005 06/09/2013 documented as of this encounter (statuses as of 04/23/2022) [facility] History of Past illness Narrative* Problem Noted Date Resolved Date Rotator cuff syndrome of both shoulders 07/27/19 16 11/28/2015 Atrial fibrillation 11/06/2014 11/23/2014 Overview: History: no pre op history Assessment: post op AF on 11/06, maintaining sinus Plan: con't amio taper and beta tico, no AC per CTS YOLANDA (acute kidney injury) 11/04/20142014 Overview: Hx of YOLANDA (Scr 2.1) in August 2014 during admission for bactermia/diagnosis of PVE. A/P -resolved Blood loss anemia 11/04/2014 09/13/2016 Overview: History: recent OHS Assessment: stable, no s/s of bleeding noted Plan: repeat labs in OPD Hypotension 11/02/2014 11/03/2014 Overview: A/P: Refractory to fluid resuscitation, requiring NE infusion. Transfusing 1pRBC. Goal maps >65 On mechanically assisted ventilation 11/02/2014 11/03/2014 Overview: Grade II: WTE as tolerated Hypoxemia 11/02/2014 11/03/2014 Overview: A/P: Initial pO2 was 63 on arrival to ICU, FiO2 increased to 60%. Monitor ABGs Preop testing 11/01/2014 11/03/2014 Overview: [facility] Surgeon: Amandeep Putnam M.D. Informed Consent Completed: yes STS Score: p CAD: Yes - CAD on Problem List: Yes Is intended procedure a CABG: No - is a beta tico ordered? Yes H & P completed: Yes PA/LAT: Pending CT: Pending MRI: N/A LE US: N/A Cath: Pending Echo:completed EKG: Pending EF %: 55 PI's: (R)50dom (L)72 Carotid: Completed Mapping: Pending Dental: Pending PFT's: N/A Basename 10/30/14 0632 WBC 6.65 HB 10.0* HCT 30.2* PLT 217 INR 1.0 CREAT 1.06 UA:negative 10/29/14 HCG:N/A ABO/ABO Confirmed: O neg/neg 11/01/14 Blood ordered: No SA Swab: Yes - results: Neg SA/MRSA Last Dose of Anticoagulation: SC Heparin Op Note: Yes, 2001 Pacemaker Check: N/A Consults: ID, Interventional Cardiology, Dentistry DM: Yes HBA1C, [place] (%) Date Value 03/30/2011 6.0 Hemoglobin A1C (%) Date Value 07/13/2014 5.7 Cardiac Surgical prep: Yes 5 meter walk test completed. 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 08/09/2013 11/03/2014 Lateral epicondylitis of left elbow 03/11/2013 10/20/2014 Lumbar disc herniation with radiculopathy 200907/15/2014 Disorders of bursae and tend ons in shoulder region, unspecified 04/14/2007 07/15/2014 GEN CONVUL EPI W/O MENTN INTRACT 11/03/2006 07/15/2014 SKIN CARCINOMA LIP, SKIN OF 05/19/200606/24 DIABETES MELLITUS TYPE II UNCONTR UNCOMPL 200407/15/2014 Other and unspecified hyperlipidemia 06/18/2005 06/09/2013 documented as of this encounter (statuses as of 04/24/2022) [facility] History of Past illness Narrative* Problem Noted Date Resolved Date Rotator cuff syndrome of both shoulders 07/27/19 16 11/28/2015 Atrial fibrillation 11/06/2014 11/23/2014 Overview: History: no pre op history Assessment: post op AF on 11/06, maintaining sinus Plan: con't amio taper and beta tico, no AC per CTS YOLANDA (acute kidney injury) 11/04/20142014 Overview: Hx of YOLANDA (Scr 2.1) in August 2014 during admission for bactermia/diagnosis of PVE. A/P -resolved Blood loss anemia 11/04/2014 09/13/2016 Overview: History: recent OHS Assessment: stable, no s/s of bleeding noted Plan: repeat labs in OPD Hypotension 11/02/2014 11/03/2014 Overview: A/P: Refractory to fluid resuscitation, requiring NE infusion. Transfusing 1pRBC. Goal maps >65 On mechanically assisted ventilation 11/02/2014 11/03/2014 Overview: Grade II: WTE as tolerated Hypoxemia 11/02/2014 11/03/2014 Overview: A/P: Initial pO2 was 63 on arrival to ICU, FiO2 increased to 60%. Monitor ABGs Preop testing 11/01/2014 11/03/2014 Overview: [facility] Surgeon: Amandeep Putnam M.D. Informed Consent Completed: yes STS Score: p CAD: Yes - CAD on Problem List: Yes Is intended procedure a CABG: No - is a beta tico ordered? Yes H & P completed: Yes PA/LAT: Pending CT: Pending MRI: N/A LE US: N/A Cath: Pending Echo:completed EKG: Pending EF %: 55 PI's: (R)50dom (L)72 Carotid: Completed Mapping: Pending Dental: Pending PFT's: N/A Basename 10/30/14 0632 WBC 6.65 HB 10.0* HCT 30.2* PLT 217 INR 1.0 CREAT 1.06 UA:negative 10/29/14 HCG:N/A ABO/ABO Confirmed: O neg/neg 11/01/14 Blood ordered: No SA Swab: Yes - results: Neg SA/MRSA Last Dose of Anticoagulation: SC Heparin Op Note: Yes, 2001 Pacemaker Check: N/A Consults: ID, Interventional Cardiology, Dentistry DM: Yes HBA1C, [place] (%) Date Value 03/30/2011 6.0 Hemoglobin A1C (%) Date Value 07/13/2014 5.7 Cardiac Surgical prep: Yes 5 meter walk test completed. 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 08/09/2013 11/03/2014 Lateral epicondylitis of left elbow 03/11/2013 10/20/2014 Lumbar disc herniation with radiculopathy 200907/15/2014 Disorders of bursae and tend ons in shoulder region, unspecified 04/14/2007 07/15/2014 GEN CONVUL EPI W/O MENTN INTRACT 11/03/2006 07/15/2014 SKIN CARCINOMA LIP, SKIN OF 05/19/200606/24 DIABETES MELLITUS TYPE II UNCONTR UNCOMPL 200407/15/2014 Other and unspecified hyperlipidemia 06/18/2005 06/09/2013 documented as of this encounter (statuses as of 05/01/2022) [facility]2016 History of Past illness Narrative* Problem Noted Date Resolved Date Rotator cuff syndrome of both shoulders 07/27/19 16 11/28/2015 Atrial fibrillation 11/06/2014 11/23/2014 Overview: History: no pre op history Assessment: post op AF on 11/06, maintaining sinus Plan: con't amio taper and beta tico, no AC per CTS YOLANDA (acute kidney injury) 11/04/20142014 Overview: Hx of YOLANDA (Scr 2.1) in August 2014 during admission for bactermia/diagnosis of PVE. A/P -resolved Blood loss anemia 11/04/2014 09/13/2016 Overview: History: recent OHS Assessment: stable, no s/s of bleeding noted Plan: repeat labs in OPD Hypotension 11/02/2014 11/03/2014 Overview: A/P: Refractory to fluid resuscitation, requiring NE infusion. Transfusing 1pRBC. Goal maps >65 On mechanically assisted ventilation 11/02/2014 11/03/2014 Overview: Grade II: WTE as tolerated Hypoxemia 11/02/2014 11/03/2014 Overview: A/P: Initial pO2 was 63 on arrival to ICU, FiO2 increased to 60%. Monitor ABGs Preop testing 11/01/2014 11/03/2014 Overview: [facility] Surgeon: Amandeep Putnam M.D. Informed Consent Completed: yes STS Score: p CAD: Yes - CAD on Problem List: Yes Is intended procedure a CABG: No - is a beta tico ordered? Yes H & P completed: Yes PA/LAT: Pending CT: Pending MRI: N/A LE US: N/A Cath: Pending Echo:completed EKG: Pending EF %: 55 PI's: (R)50dom (L)72 Carotid: Completed Mapping: Pending Dental: Pending PFT's: N/A Basename 10/30/14 0632 WBC 6.65 HB 10.0* HCT 30.2* PLT 217 INR 1.0 CREAT 1.06 UA:negative 10/29/14 HCG:N/A ABO/ABO Confirmed: O neg/neg 11/01/14 Blood ordered: No SA Swab: Yes - results: Neg SA/MRSA Last Dose of Anticoagulation: SC Heparin Op Note: Yes, 2001 Pacemaker Check: N/A Consults: ID, Interventional Cardiology, Dentistry DM: Yes HBA1C, [place] (%) Date Value 03/30/2011 6.0 Hemoglobin A1C (%) Date Value 07/13/2014 5.7 Cardiac Surgical prep: Yes 5 meter walk test completed. 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 08/09/2013 11/03/2014 Lateral epicondylitis of left elbow 03/11/2013 10/20/2014 Lumbar disc herniation with radiculopathy 200907/15/2014 Disorders of bursae and tend ons in shoulder region, unspecified 04/14/2007 07/15/2014 GEN CONVUL EPI W/O MENTN INTRACT 11/03/2006 07/15/2014 SKIN CARCINOMA LIP, SKIN OF 05/19/200606/24 DIABETES MELLITUS TYPE II UNCONTR UNCOMPL 200407/15/2014 Other and unspecified hyperlipidemia 06/18/2005 06/09/2013 documented as of this encounter (statuses as of 05/02/2022) [facility] History of Past illness Narrative* Problem Noted Date Resolved Date Rotator cuff syndrome of both shoulders 07/27/19 16 11/28/2015 Atrial fibrillation 11/06/2014 11/23/2014 Overview: History: no pre op history Assessment: post op AF on 11/06, maintaining sinus Plan: con't amio taper and beta tico, no AC per CTS YOLANDA (acute kidney injury) 11/04/20142014 Overview: Hx of YOLANDA (Scr 2.1) in August 2014 during admission for bactermia/diagnosis of PVE. A/P -resolved Blood loss anemia 11/04/2014 09/13/2016 Overview: History: recent OHS Assessment: stable, no s/s of bleeding noted Plan: repeat labs in OPD Hypotension 11/02/2014 11/03/2014 Overview: A/P: Refractory to fluid resuscitation, requiring NE infusion. Transfusing 1pRBC. Goal maps >65 On mechanically assisted ventilation 11/02/2014 11/03/2014 Overview: Grade II: WTE as tolerated Hypoxemia 11/02/2014 11/03/2014 Overview: A/P: Initial pO2 was 63 on arrival to ICU, FiO2 increased to 60%. Monitor ABGs Preop testing 11/01/2014 11/03/2014 Overview: [facility] Surgeon: Amandeep Putnam M.D. Informed Consent Completed: yes STS Score: p CAD: Yes - CAD on Problem List: Yes Is intended procedure a CABG: No - is a beta tico ordered? Yes H & P completed: Yes PA/LAT: Pending CT: Pending MRI: N/A LE US: N/A Cath: Pending Echo:completed EKG: Pending EF %: 55 PI's: (R)50dom (L)72 Carotid: Completed Mapping: Pending Dental: Pending PFT's: N/A Basename 10/30/14 0632 WBC 6.65 HB 10.0* HCT 30.2* PLT 217 INR 1.0 CREAT 1.06 UA:negative 10/29/14 HCG:N/A ABO/ABO Confirmed: O neg/neg 11/01/14 Blood ordered: No SA Swab: Yes - results: Neg SA/MRSA Last Dose of Anticoagulation: SC Heparin Op Note: Yes, 2001 Pacemaker Check: N/A Consults: ID, Interventional Cardiology, Dentistry DM: Yes HBA1C, [place] (%) Date Value 03/30/2011 6.0 Hemoglobin A1C (%) Date Value 07/13/2014 5.7 Cardiac Surgical prep: Yes 5 meter walk test completed. 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 08/09/2013 11/03/2014 Lateral epicondylitis of left elbow 03/11/2013 10/20/2014 Lumbar disc herniation with radiculopathy 200907/15/2014 Disorders of bursae and tend ons in shoulder region, unspecified 04/14/2007 07/15/2014 GEN CONVUL EPI W/O MENTN INTRACT 11/03/2006 07/15/2014 SKIN CARCINOMA LIP, SKIN OF 05/19/200606/24 DIABETES MELLITUS TYPE II UNCONTR UNCOMPL 200407/15/2014 Other and unspecified hyperlipidemia 06/18/2005 06/09/2013 documented as of this encounter (statuses as of 05/07/2022) [facility] History of Past illness Narrative* Problem Noted Date Resolved Date Rotator cuff syndrome of both shoulders 07/27/19 16 11/28/2015 Atrial fibrillation 11/06/2014 11/23/2014 Overview: History: no pre op history Assessment: post op AF on 11/06, maintaining sinus Plan: con't amio taper and beta tico, no AC per CTS YOLANDA (acute kidney injury) 11/04/20142014 Overview: Hx of YOLANDA (Scr 2.1) in August 2014 during admission for bactermia/diagnosis of PVE. A/P -resolved Blood loss anemia 11/04/2014 09/13/2016 Overview: History: recent OHS Assessment: stable, no s/s of bleeding noted Plan: repeat labs in OPD Hypotension 11/02/2014 11/03/2014 Overview: A/P: Refractory to fluid resuscitation, requiring NE infusion. Transfusing 1pRBC. Goal maps >65 On mechanically assisted ventilation 11/02/2014 11/03/2014 Overview: Grade II: WTE as tolerated Hypoxemia 11/02/2014 11/03/2014 Overview: A/P: Initial pO2 was 63 on arrival to ICU, FiO2 increased to 60%. Monitor ABGs Preop testing 11/01/2014 11/03/2014 Overview: [facility] Surgeon: Amandeep Putnam M.D. Informed Consent Completed: yes STS Score: p CAD: Yes - CAD on Problem List: Yes Is intended procedure a CABG: No - is a beta tico ordered? Yes H & P completed: Yes PA/LAT: Pending CT: Pending MRI: N/A LE US: N/A Cath: Pending Echo:completed EKG: Pending EF %: 55 PI's: (R)50dom (L)72 Carotid: Completed Mapping: Pending Dental: Pending PFT's: N/A Basename 10/30/14 0632 WBC 6.65 HB 10.0* HCT 30.2* PLT 217 INR 1.0 CREAT 1.06 UA:negative 10/29/14 HCG:N/A ABO/ABO Confirmed: O neg/neg 11/01/14 Blood ordered: No SA Swab: Yes - results: Neg SA/MRSA Last Dose of Anticoagulation: SC Heparin Op Note: Yes, 2001 Pacemaker Check: N/A Consults: ID, Interventional Cardiology, Dentistry DM: Yes HBA1C, [place] (%) Date Value 03/30/2011 6.0 Hemoglobin A1C (%) Date Value 07/13/2014 5.7 Cardiac Surgical prep: Yes 5 meter walk test completed. 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 08/09/2013 11/03/2014 Lateral epicondylitis of left elbow 03/11/2013 10/20/2014 Lumbar disc herniation with radiculopathy 200907/15/2014 Disorders of bursae and tend ons in shoulder region, unspecified 04/14/2007 07/15/2014 GEN CONVUL EPI W/O MENTN INTRACT 11/03/2006 07/15/2014 SKIN CARCINOMA LIP, SKIN OF 05/19/200606/24 DIABETES MELLITUS TYPE II UNCONTR UNCOMPL 200407/15/2014 Other and unspecified hyperlipidemia 06/18/2005 06/09/2013 documented as of this encounter (statuses as of 06/23/2022) [facility] History of Past illness Narrative* Problem Noted Date Resolved Date Rotator cuff syndrome of both shoulders 07/27/19 16 11/28/2015 Atrial fibrillation 11/06/2014 11/23/2014 Overview: History: no pre op history Assessment: post op AF on 11/06, maintaining sinus Plan: con't amio taper and beta tico, no AC per CTS YOLANDA (acute kidney injury) 11/04/20142014 Overview: Hx of YOLANDA (Scr 2.1) in August 2014 during admission for bactermia/diagnosis of PVE. A/P -resolved Blood loss anemia 11/04/2014 09/13/2016 Overview: History: recent OHS Assessment: stable, no s/s of bleeding noted Plan: repeat labs in OPD Hypotension 11/02/2014 11/03/2014 Overview: A/P: Refractory to fluid resuscitation, requiring NE infusion. Transfusing 1pRBC. Goal maps >65 On mechanically assisted ventilation 11/02/2014 11/03/2014 Overview: Grade II: WTE as tolerated Hypoxemia 11/02/2014 11/03/2014 Overview: A/P: Initial pO2 was 63 on arrival to ICU, FiO2 increased to 60%. Monitor ABGs Preop testing 11/01/2014 11/03/2014 Overview: [facility] Surgeon: Amandeep Putnam M.D. Informed Consent Completed: yes STS Score: p CAD: Yes - CAD on Problem List: Yes Is intended procedure a CABG: No - is a beta tico ordered? Yes H & P completed: Yes PA/LAT: Pending CT: Pending MRI: N/A LE US: N/A Cath: Pending Echo:completed EKG: Pending EF %: 55 PI's: (R)50dom (L)72 Carotid: Completed Mapping: Pending Dental: Pending PFT's: N/A Basename 10/30/14 0632 WBC 6.65 HB 10.0* HCT 30.2* PLT 217 INR 1.0 CREAT 1.06 UA:negative 10/29/14 HCG:N/A ABO/ABO Confirmed: O neg/neg 11/01/14 Blood ordered: No SA Swab: Yes - results: Neg SA/MRSA Last Dose of Anticoagulation: SC Heparin Op Note: Yes, 2001 Pacemaker Check: N/A Consults: ID, Interventional Cardiology, Dentistry DM: Yes HBA1C, [place] (%) Date Value 03/30/2011 6.0 Hemoglobin A1C (%) Date Value 07/13/2014 5.7 Cardiac Surgical prep: Yes 5 meter walk test completed. 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 08/09/2013 11/03/2014 Lateral epicondylitis of left elbow 03/11/2013 10/20/2014 Lumbar disc herniation with radiculopathy 200907/15/2014 Disorders of bursae and tend ons in shoulder region, unspecified 04/14/2007 07/15/2014 GEN CONVUL EPI W/O MENTN INTRACT 11/03/2006 07/15/2014 SKIN CARCINOMA LIP, SKIN OF 05/19/200606/24 DIABETES MELLITUS TYPE II UNCONTR UNCOMPL 200407/15/2014 Other and unspecified hyperlipidemia 06/18/2005 06/09/2013 documented as of this encounter (statuses as of 06/25/2022) [facility] History of Past illness Narrative* Problem Noted Date Resolved Date Rotator cuff syndrome of both shoulders 07/27/19 16 11/28/2015 Atrial fibrillation 11/06/2014 11/23/2014 Overview: History: no pre op history Assessment: post op AF on 11/06, maintaining sinus Plan: con't amio taper and beta tico, no AC per CTS YOLANDA (acute kidney injury) 11/04/20142014 Overview: Hx of YOLANDA (Scr 2.1) in August 2014 during admission for bactermia/diagnosis of PVE. A/P -resolved Blood loss anemia 11/04/2014 09/13/2016 Overview: History: recent OHS Assessment: stable, no s/s of bleeding noted Plan: repeat labs in OPD Hypotension 11/02/2014 11/03/2014 Overview: A/P: Refractory to fluid resuscitation, requiring NE infusion. Transfusing 1pRBC. Goal maps >65 On mechanically assisted ventilation 11/02/2014 11/03/2014 Overview: Grade II: WTE as tolerated Hypoxemia 11/02/2014 11/03/2014 Overview: A/P: Initial pO2 was 63 on arrival to ICU, FiO2 increased to 60%. Monitor ABGs Preop testing 11/01/2014 11/03/2014 Overview: [facility] Surgeon: Amandeep Putnam M.D. Informed Consent Completed: yes STS Score: p CAD: Yes - CAD on Problem List: Yes Is intended procedure a CABG: No - is a beta tico ordered? Yes H & P completed: Yes PA/LAT: Pending CT: Pending MRI: N/A LE US: N/A Cath: Pending Echo:completed EKG: Pending EF %: 55 PI's: (R)50dom (L)72 Carotid: Completed Mapping: Pending Dental: Pending PFT's: N/A Basename 10/30/14 0632 WBC 6.65 HB 10.0* HCT 30.2* PLT 217 INR 1.0 CREAT 1.06 UA:negative 10/29/14 HCG:N/A ABO/ABO Confirmed: O neg/neg 11/01/14 Blood ordered: No SA Swab: Yes - results: Neg SA/MRSA Last Dose of Anticoagulation: SC Heparin Op Note: Yes, 2001 Pacemaker Check: N/A Consults: ID, Interventional Cardiology, Dentistry DM: Yes HBA1C, [place] (%) Date Value 03/30/2011 6.0 Hemoglobin A1C (%) Date Value 07/13/2014 5.7 Cardiac Surgical prep: Yes 5 meter walk test completed. 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 08/09/2013 11/03/2014 Lateral epicondylitis of left elbow 03/11/2013 10/20/2014 Lumbar disc herniation with radiculopathy 200907/15/2014 Disorders of bursae and tend ons in shoulder region, unspecified 04/14/2007 07/15/2014 GEN CONVUL EPI W/O MENTN INTRACT 11/03/2006 07/15/2014 SKIN CARCINOMA LIP, SKIN OF 05/19/200606/24 DIABETES MELLITUS TYPE II UNCONTR UNCOMPL 200407/15/2014 Other and unspecified hyperlipidemia 06/18/2005 06/09/2013 documented as of this encounter (statuses as of 06/26/2022) [facility] History of Past illness Narrative* Problem Noted Date Resolved Date Rotator cuff syndrome of both shoulders 07/27/19 16 11/28/2015 Atrial fibrillation 11/06/2014 11/23/2014 Overview: History: no pre op history Assessment: post op AF on 11/06, maintaining sinus Plan: con't amio taper and beta tico, no AC per CTS YOLANDA (acute kidney injury) 11/04/20142014 Overview: Hx of YOLANDA (Scr 2.1) in August 2014 during admission for bactermia/diagnosis of PVE. A/P -resolved Blood loss anemia 11/04/2014 09/13/2016 Overview: History: recent OHS Assessment: stable, no s/s of bleeding noted Plan: repeat labs in OPD Hypotension 11/02/2014 11/03/2014 Overview: A/P: Refractory to fluid resuscitation, requiring NE infusion. Transfusing 1pRBC. Goal maps >65 On mechanically assisted ventilation 11/02/2014 11/03/2014 Overview: Grade II: WTE as tolerated Hypoxemia 11/02/2014 11/03/2014 Overview: A/P: Initial pO2 was 63 on arrival to ICU, FiO2 increased to 60%. Monitor ABGs Preop testing 11/01/2014 11/03/2014 Overview: [facility] Surgeon: Amandeep Putnam M.D. Informed Consent Completed: yes STS Score: p CAD: Yes - CAD on Problem List: Yes Is intended procedure a CABG: No - is a beta tico ordered? Yes H & P completed: Yes PA/LAT: Pending CT: Pending MRI: N/A LE US: N/A Cath: Pending Echo:completed EKG: Pending EF %: 55 PI's: (R)50dom (L)72 Carotid: Completed Mapping: Pending Dental: Pending PFT's: N/A Basename 10/30/14 0632 WBC 6.65 HB 10.0* HCT 30.2* PLT 217 INR 1.0 CREAT 1.06 UA:negative 10/29/14 HCG:N/A ABO/ABO Confirmed: O neg/neg 11/01/14 Blood ordered: No SA Swab: Yes - results: Neg SA/MRSA Last Dose of Anticoagulation: SC Heparin Op Note: Yes, 2001 Pacemaker Check: N/A Consults: ID, Interventional Cardiology, Dentistry DM: Yes HBA1C [place] (%) Date Value 03/30/2011 6.0 Hemoglobin A1C (%) Date Value 07/13/2014 5.7 Cardiac Surgical prep: Yes 5 meter walk test completed. 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 08/09/2013 11/03/2014 Lateral epicondylitis of left elbow 03/11/2013 10/20/2014 Lumbar disc herniation with radiculopathy 200907/15/2014 Disorders of bursae and tend ons in shoulder region, unspecified 04/14/2007 07/15/2014 GEN CONVUL EPI W/O MENTN INTRACT 11/03/2006 07/15/2014 SKIN CARCINOMA LIP, SKIN OF 05/19/200606/24 DIABETES MELLITUS TYPE II UNCONTR UNCOMPL 200407/15/2014 Other and unspecified hyperlipidemia 06/18/2005 06/09/2013 documented as of this encounter (statuses as of 06/28/2022) [facility] History of Past illness Narrative* Problem Noted Date Resolved Date Rotator cuff syndrome of both shoulders 07/27/19 16 11/28/2015 Atrial fibrillation 11/06/2014 11/23/2014 Overview: History: no pre op history Assessment: post op AF on 11/06, maintaining sinus Plan: con't amio taper and beta tico, no AC per CTS YOLANDA (acute kidney injury) 11/04/20142014 Overview: Hx of YOLANDA (Scr 2.1) in August 2014 during admission for bactermia/diagnosis of PVE. A/P -resolved Blood loss anemia 11/04/2014 09/13/2016 Overview: History: recent OHS Assessment: stable, no s/s of bleeding noted Plan: repeat labs in OPD Hypotension 11/02/2014 11/03/2014 Overview: A/P: Refractory to fluid resuscitation, requiring NE infusion. Transfusing 1pRBC. Goal maps >65 On mechanically assisted ventilation 11/02/2014 11/03/2014 Overview: Grade II: WTE as tolerated Hypoxemia 11/02/2014 11/03/2014 Overview: A/P: Initial pO2 was 63 on arrival to ICU, FiO2 increased to 60%. Monitor ABGs Preop testing 11/01/2014 11/03/2014 Overview: [facility] Surgeon: Amandeep Putnam M.D. Informed Consent Completed: yes STS Score: p CAD: Yes - CAD on Problem List: Yes Is intended procedure a CABG: No - is a beta tico ordered? Yes H & P completed: Yes PA/LAT: Pending CT: Pending MRI: N/A LE US: N/A Cath: Pending Echo:completed EKG: Pending EF %: 55 PI's: (R)50dom (L)72 Carotid: Completed Mapping: Pending Dental: Pending PFT's: N/A Basename 10/30/14 0632 WBC 6.65 HB 10.0* HCT 30.2* PLT 217 INR 1.0 CREAT 1.06 UA:negative 10/29/14 HCG:N/A ABO/ABO Confirmed: O neg/neg 11/01/14 Blood ordered: No SA Swab: Yes - results: Neg SA/MRSA Last Dose of Anticoagulation: SC Heparin Op Note: Yes, 2001 Pacemaker Check: N/A Consults: ID, Interventional Cardiology, Dentistry DM: Yes HBA1C, [place] (%) Date Value 03/30/2011 6.0 Hemoglobin A1C (%) Date Value 07/13/2014 5.7 Cardiac Surgical prep: Yes 5 meter walk test completed. 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 08/09/2013 11/03/2014 Lateral epicondylitis of left elbow 03/11/2013 10/20/2014 Lumbar disc herniation with radiculopathy 200907/15/2014 Disorders of bursae and tend ons in shoulder region, unspecified 04/14/2007 07/15/2014 GEN CONVUL EPI W/O MENTN INTRACT 11/03/2006 07/15/2014 SKIN CARCINOMA LIP, SKIN OF 05/19/200606/24 DIABETES MELLITUS TYPE II UNCONTR UNCOMPL 200407/15/2014 Other and unspecified hyperlipidemia 06/18/2005 06/09/2013 documented as of this encounter (statuses as of 08/13/2022) [facility] History of Past illness Narrative* Problem Noted Date Resolved Date Rotator cuff syndrome of both shoulders 07/27/19 16 11/28/2015 Atrial fibrillation 11/06/2014 11/23/2014 Overview: History: no pre op history Assessment: post op AF on 11/06, maintaining sinus Plan: con't amio taper and beta tico, no AC per CTS YOLANDA (acute kidney injury) 11/04/20142014 Overview: Hx of YOLANDA (Scr 2.1) in August 2014 during admission for bactermia/diagnosis of PVE. A/P -resolved Blood loss anemia 11/04/2014 09/13/2016 Overview: History: recent OHS Assessment: stable, no s/s of bleeding noted Plan: repeat labs in OPD Hypotension 11/02/2014 11/03/2014 Overview: A/P: Refractory to fluid resuscitation, requiring NE infusion. Transfusing 1pRBC. Goal maps >65 On mechanically assisted ventilation 11/02/2014 11/03/2014 Overview: Grade II: WTE as tolerated Hypoxemia 11/02/2014 11/03/2014 Overview: A/P: Initial pO2 was 63 on arrival to ICU, FiO2 increased to 60%. Monitor ABGs Preop testing 11/01/2014 11/03/2014 Overview: [facility] Surgeon: Amandeep Putnam M.D. Informed Consent Completed: yes STS Score: p CAD: Yes - CAD on Problem List: Yes Is intended procedure a CABG: No - is a beta tico ordered? Yes H & P completed: Yes PA/LAT: Pending CT: Pending MRI: N/A LE US: N/A Cath: Pending Echo:completed EKG: Pending EF %: 55 PI's: (R)50dom (L)72 Carotid: Completed Mapping: Pending Dental: Pending PFT's: N/A Basename 10/30/14 0632 WBC 6.65 HB 10.0* HCT 30.2* PLT 217 INR 1.0 CREAT 1.06 UA:negative 10/29/14 HCG:N/A ABO/ABO Confirmed: O neg/neg 11/01/14 Blood ordered: No SA Swab: Yes - results: Neg SA/MRSA Last Dose of Anticoagulation: SC Heparin Op Note: Yes, 2001 Pacemaker Check: N/A Consults: ID, Interventional Cardiology, Dentistry DM: Yes HBA1C, [place] (%) Date Value 03/30/2011 6.0 Hemoglobin A1C (%) Date Value 07/13/2014 5.7 Cardiac Surgical prep: Yes 5 meter walk test completed. 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 08/09/2013 11/03/2014 Lateral epicondylitis of left elbow 03/11/2013 10/20/2014 Lumbar disc herniation with radiculopathy 200907/15/2014 Disorders of bursae and tend ons in shoulder region, unspecified 04/14/2007 07/15/2014 GEN CONVUL EPI W/O MENTN INTRACT 11/03/2006 07/15/2014 SKIN CARCINOMA LIP, SKIN OF 05/19/200606/24 DIABETES MELLITUS TYPE II UNCONTR UNCOMPL 200407/15/2014 Other and unspecified hyperlipidemia 06/18/2005 06/09/2013 documented as of this encounter (statuses as of 08/15/2022) [facility] History of Past illness Narrative* Problem Noted Date Resolved Date Rotator cuff syndrome of both shoulders 07/27/19 16 11/28/2015 Atrial fibrillation 11/06/2014 11/23/2014 Overview: History: no pre op history Assessment: post op AF on 11/06, maintaining sinus Plan: con't amio taper and beta tico, no AC per CTS YOLANDA (acute kidney injury) 11/04/20142014 Overview: Hx of YOLANDA (Scr 2.1) in August 2014 during admission for bactermia/diagnosis of PVE. A/P -resolved Blood loss anemia 11/04/2014 09/13/2016 Overview: History: recent OHS Assessment: stable, no s/s of bleeding noted Plan: repeat labs in OPD Hypotension 11/02/2014 11/03/2014 Overview: A/P: Refractory to fluid resuscitation, requiring NE infusion. Transfusing 1pRBC. Goal maps >65 On mechanically assisted ventilation 11/02/2014 11/03/2014 Overview: Grade II: WTE as tolerated Hypoxemia 11/02/2014 11/03/2014 Overview: A/P: Initial pO2 was 63 on arrival to ICU, FiO2 increased to 60%. Monitor ABGs Preop testing 11/01/2014 11/03/2014 Overview: [facility] Surgeon: Amandeep Putnam M.D. Informed Consent Completed: yes STS Score: p CAD: Yes - CAD on Problem List: Yes Is intended procedure a CABG: No - is a beta tico ordered? Yes H & P completed: Yes PA/LAT: Pending CT: Pending MRI: N/A LE US: N/A Cath: Pending Echo:completed EKG: Pending EF %: 55 PI's: (R)50dom (L)72 Carotid: Completed Mapping: Pending Dental: Pending PFT's: N/A Basename 10/30/14 0632 WBC 6.65 HB 10.0* HCT 30.2* PLT 217 INR 1.0 CREAT 1.06 UA:negative 10/29/14 HCG:N/A ABO/ABO Confirmed: O neg/neg 11/01/14 Blood ordered: No SA Swab: Yes - results: Neg SA/MRSA Last Dose of Anticoagulation: SC Heparin Op Note: Yes, 2001 Pacemaker Check: N/A Consults: ID, Interventional Cardiology, Dentistry DM: Yes HBA1C, [place] (%) Date Value 03/30/2011 6.0 Hemoglobin A1C (%) Date Value 07/13/2014 5.7 Cardiac Surgical prep: Yes 5 meter walk test completed. 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 08/09/2013 11/03/2014 Lateral epicondylitis of left elbow 03/11/2013 10/20/2014 Lumbar disc herniation with radiculopathy 200907/15/2014 Disorders of bursae and tend ons in shoulder region, unspecified 04/14/2007 07/15/2014 GEN CONVUL EPI W/O MENTN INTRACT 11/03/2006 07/15/2014 SKIN CARCINOMA LIP, SKIN OF 05/19/200606/24 DIABETES MELLITUS TYPE II UNCONTR UNCOMPL 200407/15/2014 Other and unspecified hyperlipidemia 06/18/2005 06/09/2013 documented as of this encounter (statuses as of 08/16/2022) [facility] History of Past illness Narrative* Problem Noted Date Resolved Date Rotator cuff syndrome of both shoulders 07/27/19 16 11/28/2015 Atrial fibrillation 11/06/2014 11/23/2014 Overview: History: no pre op history Assessment: post op AF on 11/06, maintaining sinus Plan: con't amio taper and beta tico, no AC per CTS YOLANDA (acute kidney injury) 11/04/20142014 Overview: Hx of YOLANDA (Scr 2.1) in August 2014 during admission for bactermia/diagnosis of PVE. A/P -resolved Blood loss anemia 11/04/2014 09/13/2016 Overview: History: recent OHS Assessment: stable, no s/s of bleeding noted Plan: repeat labs in OPD Hypotension 11/02/2014 11/03/2014 Overview: A/P: Refractory to fluid resuscitation, requiring NE infusion. Transfusing 1pRBC. Goal maps >65 On mechanically assisted ventilation 11/02/2014 11/03/2014 Overview: Grade II: WTE as tolerated Hypoxemia 11/02/2014 11/03/2014 Overview: A/P: Initial pO2 was 63 on arrival to ICU, FiO2 increased to 60%. Monitor ABGs Preop testing 11/01/2014 11/03/2014 Overview: [facility] Surgeon: Amandeep Putnam M.D. Informed Consent Completed: yes STS Score: p CAD: Yes - CAD on Problem List: Yes Is intended procedure a CABG: No - is a beta tico ordered? Yes H & P completed: Yes PA/LAT: Pending CT: Pending MRI: N/A LE US: N/A Cath: Pending Echo:completed EKG: Pending EF %: 55 PI's: (R)50dom (L)72 Carotid: Completed Mapping: Pending Dental: Pending PFT's: N/A Basename 10/30/14 0632 WBC 6.65 HB 10.0* HCT 30.2* PLT 217 INR 1.0 CREAT 1.06 UA:negative 10/29/14 HCG:N/A ABO/ABO Confirmed: O neg/neg 11/01/14 Blood ordered: No SA Swab: Yes - results: Neg SA/MRSA Last Dose of Anticoagulation: SC Heparin Op Note: Yes, 2001 Pacemaker Check: N/A Consults: ID, Interventional Cardiology, Dentistry DM: Yes HBA1C, [place] (%) Date Value 03/30/2011 6.0 Hemoglobin A1C (%) Date Value 07/13/2014 5.7 Cardiac Surgical prep: Yes 5 meter walk test completed. 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 08/09/2013 11/03/2014 Lateral epicondylitis of left elbow 03/11/2013 10/20/2014 Lumbar disc herniation with radiculopathy 200907/15/2014 Disorders of bursae and tend ons in shoulder region, unspecified 04/14/2007 07/15/2014 GEN CONVUL EPI W/O MENTN INTRACT 11/03/2006 07/15/2014 SKIN CARCINOMA LIP, SKIN OF 05/19/200606/24 DIABETES MELLITUS TYPE II UNCONTR UNCOMPL 200407/15/2014 Other and unspecified hyperlipidemia 06/18/2005 06/09/2013 documented as of this encounter (statuses as of 08/20/2022) [facility]02-[facility]2016 History of Past illness Narrative* Problem Noted Date Resolved Date Rotator cuff syndrome of both shoulders 07/27/19 16 11/28/2015 Atrial fibrillation 11/06/2014 11/23/2014 Overview: History: no pre op history Assessment: post op AF on 11/06, maintaining sinus Plan: con't amio taper and beta tico, no AC per CTS YOLANDA (acute kidney injury) 11/04/20142014 Overview: Hx of YOLANDA (Scr 2.1) in August 2014 during admission for bactermia/diagnosis of PVE. A/P -resolved Blood loss anemia 11/04/2014 09/13/2016 Overview: History: recent OHS Assessment: stable, no s/s of bleeding noted Plan: repeat labs in OPD Hypotension 11/02/2014 11/03/2014 Overview: A/P: Refractory to fluid resuscitation, requiring NE infusion. Transfusing 1pRBC. Goal maps >65 On mechanically assisted ventilation 11/02/2014 11/03/2014 Overview: Grade II: WTE as tolerated Hypoxemia 11/02/2014 11/03/2014 Overview: A/P: Initial pO2 was 63 on arrival to ICU, FiO2 increased to 60%. Monitor ABGs Preop testing 11/01/2014 11/03/2014 Overview: [facility] Surgeon: Amandeep Putnam M.D. Informed Consent Completed: yes STS Score: p CAD: Yes - CAD on Problem List: Yes Is intended procedure a CABG: No - is a beta tico ordered? Yes H & P completed: Yes PA/LAT: Pending CT: Pending MRI: N/A LE US: N/A Cath: Pending Echo:completed EKG: Pending EF %: 55 PI's: (R)50dom (L)72 Carotid: Completed Mapping: Pending Dental: Pending PFT's: N/A Basename 10/30/14 0632 WBC 6.65 HB 10.0* HCT 30.2* PLT 217 INR 1.0 CREAT 1.06 UA:negative 10/29/14 HCG:N/A ABO/ABO Confirmed: O neg/neg 11/01/14 Blood ordered: No SA Swab: Yes - results: Neg SA/MRSA Last Dose of Anticoagulation: SC Heparin Op Note: Yes, 2001 Pacemaker Check: N/A Consults: ID, Interventional Cardiology, Dentistry DM: Yes HBA1C, [place] (%) Date Value 03/30/2011 6.0 Hemoglobin A1C (%) Date Value 07/13/2014 5.7 Cardiac Surgical prep: Yes 5 meter walk test completed. 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 08/09/2013 11/03/2014 Lateral epicondylitis of left elbow 03/11/2013 10/20/2014 Lumbar disc herniation with radiculopathy 200907/15/2014 Disorders of bursae and tend ons in shoulder region, unspecified 04/14/2007 07/15/2014 GEN CONVUL EPI W/O MENTN INTRACT 11/03/2006 07/15/2014 SKIN CARCINOMA LIP, SKIN OF 05/19/200606/24 DIABETES MELLITUS TYPE II UNCONTR UNCOMPL 200407/15/2014 Other and unspecified hyperlipidemia 06/18/2005 06/09/2013 documented as of this encounter (statuses as of 08/26/2022) [facility] History of Past illness Narrative* Problem Noted Date Resolved Date Rotator cuff syndrome of both shoulders 07/27/19 16 11/28/2015 Atrial fibrillation 11/06/2014 11/23/2014 Overview: History: no pre op history Assessment: post op AF on 11/06, maintaining sinus Plan: con't amio taper and beta tico, no AC per CTS YOLANDA (acute kidney injury) 11/04/20142014 Overview: Hx of YOLANDA (Scr 2.1) in August 2014 during admission for bactermia/diagnosis of PVE. A/P -resolved Blood loss anemia 11/04/2014 09/13/2016 Overview: History: recent OHS Assessment: stable, no s/s of bleeding noted Plan: repeat labs in OPD Hypotension 11/02/2014 11/03/2014 Overview: A/P: Refractory to fluid resuscitation, requiring NE infusion. Transfusing 1pRBC. Goal maps >65 On mechanically assisted ventilation 11/02/2014 11/03/2014 Overview: Grade II: WTE as tolerated Hypoxemia 11/02/2014 11/03/2014 Overview: A/P: Initial pO2 was 63 on arrival to ICU, FiO2 increased to 60%. Monitor ABGs Preop testing 11/01/2014 11/03/2014 Overview: [facility] Surgeon: Amandeep Putnam M.D. Informed Consent Completed: yes STS Score: p CAD: Yes - CAD on Problem List: Yes Is intended procedure a CABG: No - is a beta tico ordered? Yes H & P completed: Yes PA/LAT: Pending CT: Pending MRI: N/A LE US: N/A Cath: Pending Echo:completed EKG: Pending EF %: 55 PI's: (R)50dom (L)72 Carotid: Completed Mapping: Pending Dental: Pending PFT's: N/A Basename 10/30/14 0632 WBC 6.65 HB 10.0* HCT 30.2* PLT 217 INR 1.0 CREAT 1.06 UA:negative 10/29/14 HCG:N/A ABO/ABO Confirmed: O neg/neg 11/01/14 Blood ordered: No SA Swab: Yes - results: Neg SA/MRSA Last Dose of Anticoagulation: SC Heparin Op Note: Yes, 2001 Pacemaker Check: N/A Consults: ID, Interventional Cardiology, Dentistry DM: Yes HBA1C, [place] (%) Date Value 03/30/2011 6.0 Hemoglobin A1C (%) Date Value 07/13/2014 5.7 Cardiac Surgical prep: Yes 5 meter walk test completed. 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 08/09/2013 11/03/2014 Lateral epicondylitis of left elbow 03/11/2013 10/20/2014 Lumbar disc herniation with radiculopathy 200907/15/2014 Disorders of bursae and tend ons in shoulder region, unspecified 04/14/2007 07/15/2014 GEN CONVUL EPI W/O MENTN INTRACT 11/03/2006 07/15/2014 SKIN CARCINOMA LIP, SKIN OF 05/19/200606/24 DIABETES MELLITUS TYPE II UNCONTR UNCOMPL 200407/15/2014 Other and unspecified hyperlipidemia 06/18/2005 06/09/2013 documented as of this encounter (statuses as of 08/27/2022) [facility] History of Past illness Narrative* Problem Noted Date Resolved Date Rotator cuff syndrome of both shoulders 07/27/19 16 11/28/2015 Atrial fibrillation 11/06/2014 11/23/2014 Overview: History: no pre op history Assessment: post op AF on 11/06, maintaining sinus Plan: con't amio taper and beta tico, no AC per CTS YOLANDA (acute kidney injury) 11/04/20142014 Overview: Hx of YOLANDA (Scr 2.1) in August 2014 during admission for bactermia/diagnosis of PVE. A/P -resolved Blood loss anemia 11/04/2014 09/13/2016 Overview: History: recent OHS Assessment: stable, no s/s of bleeding noted Plan: repeat labs in OPD Hypotension 11/02/2014 11/03/2014 Overview: A/P: Refractory to fluid resuscitation, requiring NE infusion. Transfusing 1pRBC. Goal maps >65 On mechanically assisted ventilation 11/02/2014 11/03/2014 Overview: Grade II: WTE as tolerated Hypoxemia 11/02/2014 11/03/2014 Overview: A/P: Initial pO2 was 63 on arrival to ICU, FiO2 increased to 60%. Monitor ABGs Preop testing 11/01/2014 11/03/2014 Overview: [facility] Surgeon: Amandeep Putnam M.D. Informed Consent Completed: yes STS Score: p CAD: Yes - CAD on Problem List: Yes Is intended procedure a CABG: No - is a beta tico ordered? Yes H & P completed: Yes PA/LAT: Pending CT: Pending MRI: N/A LE US: N/A Cath: Pending Echo:completed EKG: Pending EF %: 55 PI's: (R)50dom (L)72 Carotid: Completed Mapping: Pending Dental: Pending PFT's: N/A Basename 10/30/14 0632 WBC 6.65 HB 10.0* HCT 30.2* PLT 217 INR 1.0 CREAT 1.06 UA:negative 10/29/14 HCG:N/A ABO/ABO Confirmed: O neg/neg 11/01/14 Blood ordered: No SA Swab: Yes - results: Neg SA/MRSA Last Dose of Anticoagulation: SC Heparin Op Note: Yes, 2001 Pacemaker Check: N/A Consults: ID, Interventional Cardiology, Dentistry DM: Yes HBA1C, [place] (%) Date Value 03/30/2011 6.0 Hemoglobin A1C (%) Date Value 07/13/2014 5.7 Cardiac Surgical prep: Yes 5 meter walk test completed. 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 08/09/2013 11/03/2014 Lateral epicondylitis of left elbow 03/11/2013 10/20/2014 Lumbar disc herniation with radiculopathy 200907/15/2014 Disorders of bursae and tend ons in shoulder region, unspecified 04/14/2007 07/15/2014 GEN CONVUL EPI W/O MENTN INTRACT 11/03/2006 07/15/2014 SKIN CARCINOMA LIP, SKIN OF 05/19/200606/24 DIABETES MELLITUS TYPE II UNCONTR UNCOMPL 200407/15/2014 Other and unspecified hyperlipidemia 06/18/2005 06/09/2013 documented as of this encounter (statuses as of 09/02/2022) [facility] History of Past illness Narrative* Problem Noted Date Resolved Date Rotator cuff syndrome of both shoulders 07/27/19 16 11/28/2015 Atrial fibrillation 11/06/2014 11/23/2014 Overview: History: no pre op history Assessment: post op AF on 11/06, maintaining sinus Plan: con't amio taper and beta tico, no AC per CTS YOLANDA (acute kidney injury) 11/04/20142014 Overview: Hx of YOLANDA (Scr 2.1) in August 2014 during admission for bactermia/diagnosis of PVE. A/P -resolved Blood loss anemia 11/04/2014 09/13/2016 Overview: History: recent OHS Assessment: stable, no s/s of bleeding noted Plan: repeat labs in OPD Hypotension 11/02/2014 11/03/2014 Overview: A/P: Refractory to fluid resuscitation, requiring NE infusion. Transfusing 1pRBC. Goal maps >65 On mechanically assisted ventilation 11/02/2014 11/03/2014 Overview: Grade II: WTE as tolerated Hypoxemia 11/02/2014 11/03/2014 Overview: A/P: Initial pO2 was 63 on arrival to ICU, FiO2 increased to 60%. Monitor ABGs Preop testing 11/01/2014 11/03/2014 Overview: [facility] Surgeon: Amandeep Putnam M.D. Informed Consent Completed: yes STS Score: p CAD: Yes - CAD on Problem List: Yes Is intended procedure a CABG: No - is a beta tico ordered? Yes H & P completed: Yes PA/LAT: Pending CT: Pending MRI: N/A LE US: N/A Cath: Pending Echo:completed EKG: Pending EF %: 55 PI's: (R)50dom (L)72 Carotid: Completed Mapping: Pending Dental: Pending PFT's: N/A Basename 10/30/14 0632 WBC 6.65 HB 10.0* HCT 30.2* PLT 217 INR 1.0 CREAT 1.06 UA:negative 10/29/14 HCG:N/A ABO/ABO Confirmed: O neg/neg 11/01/14 Blood ordered: No SA Swab: Yes - results: Neg SA/MRSA Last Dose of Anticoagulation: SC Heparin Op Note: Yes, 2001 Pacemaker Check: N/A Consults: ID, Interventional Cardiology, Dentistry DM: Yes HBA1C, [place] (%) Date Value 03/30/2011 6.0 Hemoglobin A1C (%) Date Value 07/13/2014 5.7 Cardiac Surgical prep: Yes 5 meter walk test completed. 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 08/09/2013 11/03/2014 Lateral epicondylitis of left elbow 03/11/2013 10/20/2014 Lumbar disc herniation with radiculopathy 200907/15/2014 Disorders of bursae and tend ons in shoulder region, unspecified 04/14/2007 07/15/2014 GEN CONVUL EPI W/O MENTN INTRACT 11/03/2006 07/15/2014 SKIN CARCINOMA LIP, SKIN OF 05/19/200606/24 DIABETES MELLITUS TYPE II UNCONTR UNCOMPL 200407/15/2014 Other and unspecified hyperlipidemia 06/18/2005 06/09/2013 documented as of this encounter (statuses as of 10/07/2022) [facility] History of Past illness Narrative* Problem Noted Date Resolved Date Rotator cuff syndrome of both shoulders 07/27/19 16 11/28/2015 Atrial fibrillation 11/06/2014 11/23/2014 Overview: History: no pre op history Assessment: post op AF on 11/06, maintaining sinus Plan: con't amio taper and beta tico, no AC per CTS YOLANDA (acute kidney injury) 11/04/20142014 Overview: Hx of YOLANDA (Scr 2.1) in August 2014 during admission for bactermia/diagnosis of PVE. A/P -resolved Blood loss anemia 11/04/2014 09/13/2016 Overview: History: recent OHS Assessment: stable, no s/s of bleeding noted Plan: repeat labs in OPD Hypotension 11/02/2014 11/03/2014 Overview: A/P: Refractory to fluid resuscitation, requiring NE infusion. Transfusing 1pRBC. Goal maps >65 On mechanically assisted ventilation 11/02/2014 11/03/2014 Overview: Grade II: WTE as tolerated Hypoxemia 11/02/2014 11/03/2014 Overview: A/P: Initial pO2 was 63 on arrival to ICU, FiO2 increased to 60%. Monitor ABGs Preop testing 11/01/2014 11/03/2014 Overview: [facility] Surgeon: Amandeep Putnam M.D. Informed Consent Completed: yes STS Score: p CAD: Yes - CAD on Problem List: Yes Is intended procedure a CABG: No - is a beta tico ordered? Yes H & P completed: Yes PA/LAT: Pending CT: Pending MRI: N/A LE US: N/A Cath: Pending Echo:completed EKG: Pending EF %: 55 PI's: (R)50dom (L)72 Carotid: Completed Mapping: Pending Dental: Pending PFT's: N/A Basename 10/30/14 0632 WBC 6.65 HB 10.0* HCT 30.2* PLT 217 INR 1.0 CREAT 1.06 UA:negative 10/29/14 HCG:N/A ABO/ABO Confirmed: O neg/neg 11/01/14 Blood ordered: No SA Swab: Yes - results: Neg SA/MRSA Last Dose of Anticoagulation: SC Heparin Op Note: Yes, 2001 Pacemaker Check: N/A Consults: ID, Interventional Cardiology, Dentistry DM: Yes HBA1C, [place] (%) Date Value 03/30/2011 6.0 Hemoglobin A1C (%) Date Value 07/13/2014 5.7 Cardiac Surgical prep: Yes 5 meter walk test completed. 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 08/09/2013 11/03/2014 Lateral epicondylitis of left elbow 03/11/2013 10/20/2014 Lumbar disc herniation with radiculopathy 200907/15/2014 Disorders of bursae and tend ons in shoulder region, unspecified 04/14/2007 07/15/2014 GEN CONVUL EPI W/O MENTN INTRACT 11/03/2006 07/15/2014 SKIN CARCINOMA LIP, SKIN OF 05/19/200606/24 DIABETES MELLITUS TYPE II UNCONTR UNCOMPL 200407/15/2014 Other and unspecified hyperlipidemia 06/18/2005 06/09/2013 documented as of this encounter (statuses as of 10/10/2022) [facility] History of Past illness Narrative* Problem Noted Date Resolved Date Rotator cuff syndrome of both shoulders 07/27/19 16 11/28/2015 Atrial fibrillation 11/06/2014 11/23/2014 Overview: History: no pre op history Assessment: post op AF on 11/06, maintaining sinus Plan: con't amio taper and beta tico, no AC per CTS YOLANDA (acute kidney injury) 11/04/20142014 Overview: Hx of YOLANDA (Scr 2.1) in August 2014 during admission for bactermia/diagnosis of PVE. A/P -resolved Blood loss anemia 11/04/2014 09/13/2016 Overview: History: recent OHS Assessment: stable, no s/s of bleeding noted Plan: repeat labs in OPD Hypotension 11/02/2014 11/03/2014 Overview: A/P: Refractory to fluid resuscitation, requiring NE infusion. Transfusing 1pRBC. Goal maps >65 On mechanically assisted ventilation 11/02/2014 11/03/2014 Overview: Grade II: WTE as tolerated Hypoxemia 11/02/2014 11/03/2014 Overview: A/P: Initial pO2 was 63 on arrival to ICU, FiO2 increased to 60%. Monitor ABGs Preop testing 11/01/2014 11/03/2014 Overview: [facility] Surgeon: Amandeep Putnam M.D. Informed Consent Completed: yes STS Score: p CAD: Yes - CAD on Problem List: Yes Is intended procedure a CABG: No - is a beta tico ordered? Yes H & P completed: Yes PA/LAT: Pending CT: Pending MRI: N/A LE US: N/A Cath: Pending Echo:completed EKG: Pending EF %: 55 PI's: (R)50dom (L)72 Carotid: Completed Mapping: Pending Dental: Pending PFT's: N/A Basename 10/30/14 0632 WBC 6.65 HB 10.0* HCT 30.2* PLT 217 INR 1.0 CREAT 1.06 UA:negative 10/29/14 HCG:N/A ABO/ABO Confirmed: O neg/neg 11/01/14 Blood ordered: No SA Swab: Yes - results: Neg SA/MRSA Last Dose of Anticoagulation: SC Heparin Op Note: Yes, 2001 Pacemaker Check: N/A Consults: ID, Interventional Cardiology, Dentistry DM: Yes HBA1C, [place] (%) Date Value 03/30/2011 6.0 Hemoglobin A1C (%) Date Value 07/13/2014 5.7 Cardiac Surgical prep: Yes 5 meter walk test completed. 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 08/09/2013 11/03/2014 Lateral epicondylitis of left elbow 03/11/2013 10/20/2014 Lumbar disc herniation with radiculopathy 200907/15/2014 Disorders of bursae and tend ons in shoulder region, unspecified 04/14/2007 07/15/2014 GEN CONVUL EPI W/O MENTN INTRACT 11/03/2006 07/15/2014 SKIN CARCINOMA LIP, SKIN OF 05/19/200606/24 DIABETES MELLITUS TYPE II UNCONTR UNCOMPL 200407/15/2014 Other and unspecified hyperlipidemia 06/18/2005 06/09/2013 documented as of this encounter (statuses as of 11/25/2022) [facility] History of Past illness Narrative* Problem Noted Date Resolved Date Rotator cuff syndrome of both shoulders 07/27/19 16 11/28/2015 Atrial fibrillation 11/06/2014 11/23/2014 Overview: History: no pre op history Assessment: post op AF on 11/06, maintaining sinus Plan: con't amio taper and beta tico, no AC per CTS YOLANDA (acute kidney injury) 11/04/20142014 Overview: Hx of YOLANDA (Scr 2.1) in August 2014 during admission for bactermia/diagnosis of PVE. A/P -resolved Blood loss anemia 11/04/2014 09/13/2016 Overview: History: recent OHS Assessment: stable, no s/s of bleeding noted Plan: repeat labs in OPD Hypotension 11/02/2014 11/03/2014 Overview: A/P: Refractory to fluid resuscitation, requiring NE infusion. Transfusing 1pRBC. Goal maps >65 On mechanically assisted ventilation 11/02/2014 11/03/2014 Overview: Grade II: WTE as tolerated Hypoxemia 11/02/2014 11/03/2014 Overview: A/P: Initial pO2 was 63 on arrival to ICU, FiO2 increased to 60%. Monitor ABGs Preop testing 11/01/2014 11/03/2014 Overview: [facility] Surgeon: Amandeep Putnam M.D. Informed Consent Completed: yes STS Score: p CAD: Yes - CAD on Problem List: Yes Is intended procedure a CABG: No - is a beta tico ordered? Yes H & P completed: Yes PA/LAT: Pending CT: Pending MRI: N/A LE US: N/A Cath: Pending Echo:completed EKG: Pending EF %: 55 PI's: (R)50dom (L)72 Carotid: Completed Mapping: Pending Dental: Pending PFT's: N/A Basename 10/30/14 0632 WBC 6.65 HB 10.0* HCT 30.2* PLT 217 INR 1.0 CREAT 1.06 UA:negative 10/29/14 HCG:N/A ABO/ABO Confirmed: O neg/neg 11/01/14 Blood ordered: No SA Swab: Yes - results: Neg SA/MRSA Last Dose of Anticoagulation: SC Heparin Op Note: Yes, 2001 Pacemaker Check: N/A Consults: ID, Interventional Cardiology, Dentistry DM: Yes HBA1C, [place] (%) Date Value 03/30/2011 6.0 Hemoglobin A1C (%) Date Value 07/13/2014 5.7 Cardiac Surgical prep: Yes 5 meter walk test completed. 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 08/09/2013 11/03/2014 Lateral epicondylitis of left elbow 03/11/2013 10/20/2014 Lumbar disc herniation with radiculopathy 200907/15/2014 Disorders of bursae and tend ons in shoulder region, unspecified 04/14/2007 07/15/2014 GEN CONVUL EPI W/O MENTN INTRACT 11/03/2006 07/15/2014 SKIN CARCINOMA LIP, SKIN OF 05/19/200606/24 DIABETES MELLITUS TYPE II UNCONTR UNCOMPL 200407/15/2014 Other and unspecified hyperlipidemia 06/18/2005 06/09/2013 documented as of this encounter (statuses as of 12/06/2022) [facility] History of Past illness Narrative* Problem Noted Date Diagnosed Date Resolved Date Rotator cuff syndrome of both shoulders 07/27/2015 11/28/2015 Atrial fibrillation 11/06/2014 11/24/19 15 Overview: History: no pre op history Assessment: post op AF on 11/06, maintaining sinus Plan: con't amio taper and beta tico, no AC per CTS YOLANDA (acute kidney injury) 11/04/2014 Overview: Hx of YOLANDA (Scr 2.1) in August 2014 during admission for bactermia/diagnosis of PVE. A/P -resolved Blood loss anemia 11/04/2014 09/13/2016 Overview: History: recent OHS Assessment: stable, no s/s of bleeding noted Plan: repeat labs in OPD Hypotension 11/02/2014 11/03/2014 Overview: A/P: Refractory to fluid resuscitation, requiring NE infusion. Transfusing 1pRBC. Goal maps >65 On mechanically assisted ventilation 11/02/2014 11/03/2014 Overview: Grade II: WTE as tolerated Hypoxemia 11/02/2014 11/03/2014 Overview: A/P: Initial pO2 was 63 on arrival to ICU, FiO2 increased to 60%. Monitor ABGs Preop testing 11/01/2014 11/03/2014 Overview: [facility] Surgeon: Amandeep Putnam M.D. Informed Consent Completed: yes STS Score: p CAD: Yes - CAD on Problem List: Yes Is intended procedure a CABG: No - is a beta tico ordered? Yes H & P completed: Yes PA/LAT: Pending CT: Pending MRI: N/A LE US: N/A Cath: Pending Echo:completed EKG: Pending EF %: 55 PI's: (R)50dom (L)72 Carotid: Completed Mapping: Pending Dental: Pending PFT's: N/A Basename 10/30/14 0632 WBC 6.65 HB 10.0* HCT 30.2* PLT 217 INR 1.0 CREAT 1.06 UA:negative 10/29/14 HCG:N/A ABO/ABO Confirmed: O neg/neg 11/01/14 Blood ordered: No SA Swab: Yes - results: Neg SA/MRSA Last Dose of Anticoagulation: SC Heparin Op Note: Yes, 2001 Pacemaker Check: N/A Consults: ID, Interventional Cardiology, Dentistry DM: Yes HBA1C, [place] (%) Date Value 03/30/2011 6.0 Hemoglobin A1C (%) Date Value 07/13/2014 5.7 Cardiac Surgical prep: Yes 5 meter walk test completed. Test 1 -->4.-93 Test 2 -->5.35 Test 3-->5.45 SIGNATURE: Shirlene Almonte CNP CHECKED BY: DAV DATE of SERVICE: 10/30/2014 TIME of SERVICE: 3:01 PM S/P aortic valve replacement with prosthetic valve 08/09/2013 11/03/2014 Lateral epicondylitis of left elbow 03/11/2013 10/20/2014 Lumbar disc herniation with radiculopathy 08/21/2009 07/15/2014 Disorders of bursae and tend ons in shoulder region, unspecified 04/14/2007 07/15/2014 GEN CONVUL EPI W/O MENTN INTRACT 11/03/2006 07/15/2014 SKIN CARCINOMA LIP, SKIN OF 05/19/2006 07/15/2014 DIABETES MELLITUS TYPE II UNCONTR UNCOMPL 06/18/2005 07/15/2014 Other and unspecified hyperlipidemia 06/18/2005 06/09/2013 documented as of this encounter (statuses as of 01/27/2023) [facility] History of Past illness Narrative* Problem Noted Date Diagnosed Date Resolved Date Rotator cuff syndrome of both shoulders 07/27/2015 11/28/2015 Atrial fibrillation 11/06/2014 11/24/19 Overview: History: no pre op history Assessment: post op AF on 11/06, maintaining sinus Plan: con't amio taper and beta tico, no AC per CTS YOLANDA (acute kidney injury) 11/04/2014 Overview: Hx of YOLANDA (Scr 2.1) in August 2014 during admission for bactermia/diagnosis of PVE. A/P -resolved Blood loss anemia 11/04/2014 09/13/2016 Overview: History: recent OHS Assessment: stable, no s/s of bleeding noted Plan: repeat labs in OPD Hypotension 11/02/2014 11/03/2014 Overview: A/P: Refractory to fluid resuscitation, requiring NE infusion. Transfusing 1pRBC. Goal maps >65 On mechanically assisted ventilation 11/02/2014 11/03/2014 Overview: Grade II: WTE as tolerated Hypoxemia 11/02/2014 11/03/2014 Overview: A/P: Initial pO2 was 63 on arrival to ICU, FiO2 increased to 60%. Monitor ABGs Preop testing 11/01/2014 11/03/2014 Overview: [facility] Surgeon: Amandeep Putnam M.D. Informed Consent Completed: yes STS Score: p CAD: Yes - CAD on Problem List: Yes Is intended procedure a CABG: No - is a beta tico ordered? Yes H & P completed: Yes PA/LAT: Pending CT: Pending MRI: N/A LE US: N/A Cath: Pending Echo:completed EKG: Pending EF %: 55 PI's: (R)50dom (L)72 Carotid: Completed Mapping: Pending Dental: Pending PFT's: N/A Basename 10/30/14 0632 WBC 6.65 HB 10.0* HCT 30.2* PLT 217 INR 1.0 CREAT 1.06 UA:negative 10/29/14 HCG:N/A ABO/ABO Confirmed: O neg/neg 11/01/14 Blood ordered: No SA Swab: Yes - results: Neg SA/MRSA Last Dose of Anticoagulation: SC Heparin Op Note: Yes, 2001 Pacemaker Check: N/A Consults: ID, Interventional Cardiology, Dentistry DM: Yes HBA1C, [place] (%) Date Value 03/30/2011 6.0 Hemoglobin A1C (%) Date Value 07/13/2014 5.7 Cardiac Surgical prep: Yes 5 meter walk test completed. Test 1 -->4.-93 Test 2 -->5.35 Test 3-->5.45 SIGNATURE: Shirlene Almonte CNP CHECKED BY: DAV DATE of SERVICE: 10/30/2014 TIME of SERVICE: 3:01 PM S/P aortic valve replacement with prosthetic valve 08/09/2013 11/03/2014 Lateral epicondylitis of left elbow 03/11/2013 10/20/2014 Lumbar disc herniation with radiculopathy 08/21/2009 07/15/2014 Disorders of bursae and tend ons in shoulder region, unspecified 04/14/2007 07/15/2014 GEN CONVUL EPI W/O MENTN INTRACT 11/03/2006 07/15/2014 SKIN CARCINOMA LIP, SKIN OF 05/19/2006 07/15/2014 DIABETES MELLITUS TYPE II UNCONTR UNCOMPL 06/18/2005 07/15/2014 Other and unspecified hyperlipidemia 06/18/2005 06/09/2013 documented as of this encounter (statuses as of 01/30/2023) [facility] History of Past illness Narrative* Problem Noted Date Diagnosed Date Resolved Date Rotator cuff syndrome of both shoulders 07/27/2015 11/28/2015 Atrial fibrillation 11/06/2014 11/24/19 Overview: History: no pre op history Assessment: post op AF on 11/06, maintaining sinus Plan: con't amio taper and beta tico, no AC per CTS YOLANDA (acute kidney injury) 11/04/2014 Overview: Hx of YOLANDA (Scr 2.1) in August 2014 during admission for bactermia/diagnosis of PVE. A/P -resolved Blood loss anemia 11/04/2014 09/13/2016 Overview: History: recent OHS Assessment: stable, no s/s of bleeding noted Plan: repeat labs in OPD Hypotension 11/02/2014 11/03/2014 Overview: A/P: Refractory to fluid resuscitation, requiring NE infusion. Transfusing 1pRBC. Goal maps >65 On mechanically assisted ventilation 11/02/2014 11/03/2014 Overview: Grade II: WTE as tolerated Hypoxemia 11/02/2014 11/03/2014 Overview: A/P: Initial pO2 was 63 on arrival to ICU, FiO2 increased to 60%. Monitor ABGs Preop testing 11/01/2014 11/03/2014 Overview: [facility] Surgeon: Amandeep Putnam M.D. Informed Consent Completed: yes STS Score: p CAD: Yes - CAD on Problem List: Yes Is intended procedure a CABG: No - is a beta tico ordered? Yes H & P completed: Yes PA/LAT: Pending CT: Pending MRI: N/A LE US: N/A Cath: Pending Echo:completed EKG: Pending EF %: 55 PI's: (R)50dom (L)72 Carotid: Completed Mapping: Pending Dental: Pending PFT's: N/A Basename 10/30/14 0632 WBC 6.65 HB 10.0* HCT 30.2* PLT 217 INR 1.0 CREAT 1.06 UA:negative 10/29/14 HCG:N/A ABO/ABO Confirmed: O neg/neg 11/01/14 Blood ordered: No SA Swab: Yes - results: Neg SA/MRSA Last Dose of Anticoagulation: SC Heparin Op Note: Yes, 2001 Pacemaker Check: N/A Consults: ID, Interventional Cardiology, Dentistry DM: Yes HBA1C, [place] (%) Date Value 03/30/2011 6.0 Hemoglobin A1C (%) Date Value 07/13/2014 5.7 Cardiac Surgical prep: Yes 5 meter walk test completed. Test 1 -->4.-93 Test 2 -->5.35 Test 3-->5.45 SIGNATURE: Shirlene Almonte CNP CHECKED BY: DAV DATE of SERVICE: 10/30/2014 TIME of SERVICE: 3:01 PM S/P aortic valve replacement with prosthetic valve 08/09/2013 11/03/2014 Lateral epicondylitis of left elbow 03/11/2013 10/20/2014 Lumbar disc herniation with radiculopathy 08/21/2009 07/15/2014 Disorders of bursae and tend ons in shoulder region, unspecified 04/14/2007 07/15/2014 GEN CONVUL EPI W/O MENTN INTRACT 11/03/2006 07/15/2014 SKIN CARCINOMA LIP, SKIN OF 05/19/2006 07/15/2014 DIABETES MELLITUS TYPE II UNCONTR UNCOMPL 06/18/2005 07/15/2014 Other and unspecified hyperlipidemia 06/18/2005 06/09/2013 documented as of this encounter (statuses as of 02/28/2023) [facility] History of Past illness Narrative* Problem Noted Date Diagnosed Date Resolved Date Rotator cuff syndrome of both shoulders 07/27/2015 11/28/2015 Atrial fibrillation 11/06/2014 11/24/19 15 Overview: History: no pre op history Assessment: post op AF on 11/06, maintaining sinus Plan: con't amio taper and beta tico, no AC per CTS YOLANDA (acute kidney injury) 11/04/2014 Overview: Hx of YOLANDA (Scr 2.1) in August 2014 during admission for bactermia/diagnosis of PVE. A/P -resolved Blood loss anemia 11/04/2014 09/13/2016 Overview: History: recent OHS Assessment: stable, no s/s of bleeding noted Plan: repeat labs in OPD Hypotension 11/02/2014 11/03/2014 Overview: A/P: Refractory to fluid resuscitation, requiring NE infusion. Transfusing 1pRBC. Goal maps >65 On mechanically assisted ventilation 11/02/2014 11/03/2014 Overview: Grade II: WTE as tolerated Hypoxemia 11/02/2014 11/03/2014 Overview: A/P: Initial pO2 was 63 on arrival to ICU, FiO2 increased to 60%. Monitor ABGs Preop testing 11/01/2014 11/03/2014 Overview: [facility] Surgeon: Amandeep Putnam M.D. Informed Consent Completed: yes STS Score: p CAD: Yes - CAD on Problem List: Yes Is intended procedure a CABG: No - is a beta tico ordered? Yes H & P completed: Yes PA/LAT: Pending CT: Pending MRI: N/A LE US: N/A Cath: Pending Echo:completed EKG: Pending EF %: 55 PI's: (R)50dom (L)72 Carotid: Completed Mapping: Pending Dental: Pending PFT's: N/A Basename 10/30/14 0632 WBC 6.65 HB 10.0* HCT 30.2* PLT 217 INR 1.0 CREAT 1.06 UA:negative 10/29/14 HCG:N/A ABO/ABO Confirmed: O neg/neg 11/01/14 Blood ordered: No SA Swab: Yes - results: Neg SA/MRSA Last Dose of Anticoagulation: SC Heparin Op Note: Yes, 2001 Pacemaker Check: N/A Consults: ID, Interventional Cardiology, Dentistry DM: Yes HBA1C, [place] (%) Date Value 03/30/2011 6.0 Hemoglobin A1C (%) Date Value 07/13/2014 5.7 Cardiac Surgical prep: Yes 5 meter walk test completed. Test 1 -->4.-93 Test 2 -->5.35 Test 3-->5.45 SIGNATURE: Shirlene Almonte CNP CHECKED BY: DAV DATE of SERVICE: 10/30/2014 TIME of SERVICE: 3:01 PM S/P aortic valve replacement with prosthetic valve 08/09/2013 11/03/2014 Lateral epicondylitis of left elbow 03/11/2013 10/20/2014 Lumbar disc herniation with radiculopathy 08/21/2009 07/15/2014 Disorders of bursae and tend ons in shoulder region, unspecified 04/14/2007 07/15/2014 GEN CONVUL EPI W/O MENTN INTRACT 11/03/2006 07/15/2014 SKIN CARCINOMA LIP, SKIN OF 05/19/2006 07/15/2014 DIABETES MELLITUS TYPE II UNCONTR UNCOMPL 06/18/2005 07/15/2014 Other and unspecified hyperlipidemia 06/18/2005 06/09/2013 documented as of this encounter (statuses as of 04/04/2023) [facility] History of Past illness Narrative* Problem Noted Date Diagnosed Date Resolved Date Rotator cuff syndrome of both shoulders 07/27/2015 11/28/2015 Atrial fibrillation 11/06/2014 11/24/19 Overview: History: no pre op history Assessment: post op AF on 11/06, maintaining sinus Plan: con't amio taper and beta tico, no AC per CTS YOLANDA (acute kidney injury) 11/04/2014 Overview: Hx of YOLANDA (Scr 2.1) in August 2014 during admission for bactermia/diagnosis of PVE. A/P -resolved Blood loss anemia 11/04/2014 09/13/2016 Overview: History: recent OHS Assessment: stable, no s/s of bleeding noted Plan: repeat labs in OPD Hypotension 11/02/2014 11/03/2014 Overview: A/P: Refractory to fluid resuscitation, requiring NE infusion. Transfusing 1pRBC. Goal maps >65 On mechanically assisted ventilation 11/02/2014 11/03/2014 Overview: Grade II: WTE as tolerated Hypoxemia 11/02/2014 11/03/2014 Overview: A/P: Initial pO2 was 63 on arrival to ICU, FiO2 increased to 60%. Monitor ABGs Preop testing 11/01/2014 11/03/2014 Overview: [facility] Surgeon: Amandeep Putnam M.D. Informed Consent Completed: yes STS Score: p CAD: Yes - CAD on Problem List: Yes Is intended procedure a CABG: No - is a beta tico ordered? Yes H & P completed: Yes PA/LAT: Pending CT: Pending MRI: N/A LE US: N/A Cath: Pending Echo:completed EKG: Pending EF %: 55 PI's: (R)50dom (L)72 Carotid: Completed Mapping: Pending Dental: Pending PFT's: N/A Basename 10/30/14 0632 WBC 6.65 HB 10.0* HCT 30.2* PLT 217 INR 1.0 CREAT 1.06 UA:negative 10/29/14 HCG:N/A ABO/ABO Confirmed: O neg/neg 11/01/14 Blood ordered: No SA Swab: Yes - results: Neg SA/MRSA Last Dose of Anticoagulation: SC Heparin Op Note: Yes, 2001 Pacemaker Check: N/A Consults: ID, Interventional Cardiology, Dentistry DM: Yes HBA1C, [place] (%) Date Value 03/30/2011 6.0 Hemoglobin A1C (%) Date Value 07/13/2014 5.7 Cardiac Surgical prep: Yes 5 meter walk test completed. Test 1 -->4.-93 Test 2 -->5.35 Test 3-->5.45 SIGNATURE: Shirlene Almonte CNP CHECKED BY: DAV DATE of SERVICE: 10/30/2014 TIME of SERVICE: 3:01 PM S/P aortic valve replacement with prosthetic valve 08/09/2013 11/03/2014 Lateral epicondylitis of left elbow 03/11/2013 10/20/2014 Lumbar disc herniation with radiculopathy 08/21/2009 07/15/2014 Disorders of bursae and tend ons in shoulder region, unspecified 04/14/2007 07/15/2014 GEN CONVUL EPI W/O MENTN INTRACT 11/03/2006 07/15/2014 SKIN CARCINOMA LIP, SKIN OF 05/19/2006 07/15/2014 DIABETES MELLITUS TYPE II UNCONTR UNCOMPL 06/18/2005 07/15/2014 Other and unspecified hyperlipidemia 06/18/2005 06/09/2013 documented as of this encounter (statuses as of 04/27/2023) [facility] History of Past illness Narrative* Problem Noted Date Diagnosed Date Resolved Date Rotator cuff syndrome of both shoulders 07/27/2015 11/28/2015 Atrial fibrillation 11/06/2014 11/24/19 Overview: History: no pre op history Assessment: post op AF on 11/06, maintaining sinus Plan: con't amio taper and beta tico, no AC per CTS YOLANDA (acute kidney injury) 11/04/2014 Overview: Hx of YOLANDA (Scr 2.1) in August 2014 during admission for bactermia/diagnosis of PVE. A/P -resolved Blood loss anemia 11/04/2014 09/13/2016 Overview: History: recent OHS Assessment: stable, no s/s of bleeding noted Plan: repeat labs in OPD Hypotension 11/02/2014 11/03/2014 Overview: A/P: Refractory to fluid resuscitation, requiring NE infusion. Transfusing 1pRBC. Goal maps >65 On mechanically assisted ventilation 11/02/2014 11/03/2014 Overview: Grade II: WTE as tolerated Hypoxemia 11/02/2014 11/03/2014 Overview: A/P: Initial pO2 was 63 on arrival to ICU, FiO2 increased to 60%. Monitor ABGs Preop testing 11/01/2014 11/03/2014 Overview: [facility] Surgeon: Amandeep Putnam M.D. Informed Consent Completed: yes STS Score: p CAD: Yes - CAD on Problem List: Yes Is intended procedure a CABG: No - is a beta tico ordered? Yes H & P completed: Yes PA/LAT: Pending CT: Pending MRI: N/A LE US: N/A Cath: Pending Echo:completed EKG: Pending EF %: 55 PI's: (R)50dom (L)72 Carotid: Completed Mapping: Pending Dental: Pending PFT's: N/A Basename 10/30/14 0632 WBC 6.65 HB 10.0* HCT 30.2* PLT 217 INR 1.0 CREAT 1.06 UA:negative 10/29/14 HCG:N/A ABO/ABO Confirmed: O neg/neg 11/01/14 Blood ordered: No SA Swab: Yes - results: Neg SA/MRSA Last Dose of Anticoagulation: SC Heparin Op Note: Yes, 2001 Pacemaker Check: N/A Consults: ID, Interventional Cardiology, Dentistry DM: Yes HBA1C, [place] (%) Date Value 03/30/2011 6.0 Hemoglobin A1C (%) Date Value 07/13/2014 5.7 Cardiac Surgical prep: Yes 5 meter walk test completed. Test 1 -->4.-93 Test 2 -->5.35 Test 3-->5.45 SIGNATURE: Shirlene Almonte CNP CHECKED BY: DAV DATE of SERVICE: 10/30/2014 TIME of SERVICE: 3:01 PM S/P aortic valve replacement with prosthetic valve 08/09/2013 11/03/2014 Lateral epicondylitis of left elbow 03/11/2013 10/20/2014 Lumbar disc herniation with radiculopathy 08/21/2009 07/15/2014 Disorders of bursae and tend ons in shoulder region, unspecified 04/14/2007 07/15/2014 GEN CONVUL EPI W/O MENTN INTRACT 11/03/2006 07/15/2014 SKIN CARCINOMA LIP, SKIN OF 05/19/2006 07/15/2014 DIABETES MELLITUS TYPE II UNCONTR UNCOMPL 06/18/2005 07/15/2014 Other and unspecified hyperlipidemia 06/18/2005 06/09/2013 documented as of this encounter (statuses as of 04/29/2023) [facility] History of Past illness Narrative* Problem Noted Date Diagnosed Date Resolved Date Rotator cuff syndrome of both shoulders 07/27/2015 11/28/2015 Atrial fibrillation 11/06/2014 11/24/19 Overview: History: no pre op history Assessment: post op AF on 11/06, maintaining sinus Plan: con't amio taper and beta tico, no AC per CTS YOLANDA (acute kidney injury) 11/04/2014 Overview: Hx of YOLANDA (Scr 2.1) in August 2014 during admission for bactermia/diagnosis of PVE. A/P -resolved Blood loss anemia 11/04/2014 09/13/2016 Overview: History: recent OHS Assessment: stable, no s/s of bleeding noted Plan: repeat labs in OPD Hypotension 11/02/2014 11/03/2014 Overview: A/P: Refractory to fluid resuscitation, requiring NE infusion. Transfusing 1pRBC. Goal maps >65 On mechanically assisted ventilation 11/02/2014 11/03/2014 Overview: Grade II: WTE as tolerated Hypoxemia 11/02/2014 11/03/2014 Overview: A/P: Initial pO2 was 63 on arrival to ICU, FiO2 increased to 60%. Monitor ABGs Preop testing 11/01/2014 11/03/2014 Overview: [facility] Surgeon: Amandeep Putnam M.D. Informed Consent Completed: yes STS Score: p CAD: Yes - CAD on Problem List: Yes Is intended procedure a CABG: No - is a beta tico ordered? Yes H & P completed: Yes PA/LAT: Pending CT: Pending MRI: N/A LE US: N/A Cath: Pending Echo:completed EKG: Pending EF %: 55 PI's: (R)50dom (L)72 Carotid: Completed Mapping: Pending Dental: Pending PFT's: N/A Basename 10/30/14 0632 WBC 6.65 HB 10.0* HCT 30.2* PLT 217 INR 1.0 CREAT 1.06 UA:negative 10/29/14 HCG:N/A ABO/ABO Confirmed: O neg/neg 11/01/14 Blood ordered: No SA Swab: Yes - results: Neg SA/MRSA Last Dose of Anticoagulation: SC Heparin Op Note: Yes, 2001 Pacemaker Check: N/A Consults: ID, Interventional Cardiology, Dentistry DM: Yes HBA1C, [place] (%) Date Value 03/30/2011 6.0 Hemoglobin A1C (%) Date Value 07/13/2014 5.7 Cardiac Surgical prep: Yes 5 meter walk test completed. Test 1 -->4.-93 Test 2 -->5.35 Test 3-->5.45 SIGNATURE: Shirlene Almonte CNP CHECKED BY: DAV DATE of SERVICE: 10/30/2014 TIME of SERVICE: 3:01 PM S/P aortic valve replacement with prosthetic valve 08/09/2013 11/03/2014 Lateral epicondylitis of left elbow 03/11/2013 10/20/2014 Lumbar disc herniation with radiculopathy 08/21/2009 07/15/2014 Disorders of bursae and tend ons in shoulder region, unspecified 04/14/2007 07/15/2014 GEN CONVUL EPI W/O MENTN INTRACT 11/03/2006 07/15/2014 SKIN CARCINOMA LIP, SKIN OF 05/19/2006 07/15/2014 DIABETES MELLITUS TYPE II UNCONTR UNCOMPL 06/18/2005 07/15/2014 Other and unspecified hyperlipidemia 06/18/2005 06/09/2013 documented as of this encounter (statuses as of 04/30/2023) [facility] History of Past illness Narrative* Problem Noted Date Diagnosed Date Resolved Date Rotator cuff syndrome of both shoulders 07/27/2015 11/28/2015 Atrial fibrillation 11/06/2014 11/24/19 15 Overview: History: no pre op history Assessment: post op AF on 11/06, maintaining sinus Plan: con't amio taper and beta tico, no AC per CTS YOLANDA (acute kidney injury) 11/04/2014 Overview: Hx of YOLANDA (Scr 2.1) in August 2014 during admission for bactermia/diagnosis of PVE. A/P -resolved Blood loss anemia 11/04/2014 09/13/2016 Overview: History: recent OHS Assessment: stable, no s/s of bleeding noted Plan: repeat labs in OPD Hypotension 11/02/2014 11/03/2014 Overview: A/P: Refractory to fluid resuscitation, requiring NE infusion. Transfusing 1pRBC. Goal maps >65 On mechanically assisted ventilation 11/02/2014 11/03/2014 Overview: Grade II: WTE as tolerated Hypoxemia 11/02/2014 11/03/2014 Overview: A/P: Initial pO2 was 63 on arrival to ICU, FiO2 increased to 60%. Monitor ABGs Preop testing 11/01/2014 11/03/2014 Overview: [facility] Surgeon: Amandeep Putnam M.D. Informed Consent Completed: yes STS Score: p CAD: Yes - CAD on Problem List: Yes Is intended procedure a CABG: No - is a beta tico ordered? Yes H & P completed: Yes PA/LAT: Pending CT: Pending MRI: N/A LE US: N/A Cath: Pending Echo:completed EKG: Pending EF %: 55 PI's: (R)50dom (L)72 Carotid: Completed Mapping: Pending Dental: Pending PFT's: N/A Basename 10/30/14 0632 WBC 6.65 HB 10.0* HCT 30.2* PLT 217 INR 1.0 CREAT 1.06 UA:negative 10/29/14 HCG:N/A ABO/ABO Confirmed: O neg/neg 11/01/14 Blood ordered: No SA Swab: Yes - results: Neg SA/MRSA Last Dose of Anticoagulation: SC Heparin Op Note: Yes, 2001 Pacemaker Check: N/A Consults: ID, Interventional Cardiology, Dentistry DM: Yes HBA1C, [place] (%) Date Value 03/30/2011 6.0 Hemoglobin A1C (%) Date Value 07/13/2014 5.7 Cardiac Surgical prep: Yes 5 meter walk test completed. Test 1 -->4.-93 Test 2 -->5.35 Test 3-->5.45 SIGNATURE: Shirlene Almonte CNP CHECKED BY: DAV DATE of SERVICE: 10/30/2014 TIME of SERVICE: 3:01 PM S/P aortic valve replacement with prosthetic valve 08/09/2013 11/03/2014 Lateral epicondylitis of left elbow 03/11/2013 10/20/2014 Lumbar disc herniation with radiculopathy 08/21/2009 07/15/2014 Disorders of bursae and tend ons in shoulder region, unspecified 04/14/2007 07/15/2014 GEN CONVUL EPI W/O MENTN INTRACT 11/03/2006 07/15/2014 SKIN CARCINOMA LIP, SKIN OF 05/19/2006 07/15/2014 DIABETES MELLITUS TYPE II UNCONTR UNCOMPL 06/18/2005 07/15/2014 Other and unspecified hyperlipidemia 06/18/2005 06/09/2013 documented as of this encounter (statuses as of 05/06/2023) [facility] History of Past illness Narrative* Problem Noted Date Diagnosed Date Resolved Date Rotator cuff syndrome of both shoulders 07/27/2015 11/28/2015 Atrial fibrillation 11/06/2014 11/24/19 15 Overview: History: no pre op history Assessment: post op AF on 11/06, maintaining sinus Plan: con't amio taper and beta tico, no AC per CTS YOLANDA (acute kidney injury) 11/04/2014 Overview: Hx of YOLANDA (Scr 2.1) in August 2014 during admission for bactermia/diagnosis of PVE. A/P -resolved Blood loss anemia 11/04/2014 09/13/2016 Overview: History: recent OHS Assessment: stable, no s/s of bleeding noted Plan: repeat labs in OPD Hypotension 11/02/2014 11/03/2014 Overview: A/P: Refractory to fluid resuscitation, requiring NE infusion. Transfusing 1pRBC. Goal maps >65 On mechanically assisted ventilation 11/02/2014 11/03/2014 Overview: Grade II: WTE as tolerated Hypoxemia 11/02/2014 11/03/2014 Overview: A/P: Initial pO2 was 63 on arrival to ICU, FiO2 increased to 60%. Monitor ABGs Preop testing 11/01/2014 11/03/2014 Overview: [facility] Surgeon: Amandeep Puntam M.D. Informed Consent Completed: yes STS Score: p CAD: Yes - CAD on Problem List: Yes Is intended procedure a CABG: No - is a beta tico ordered? Yes H & P completed: Yes PA/LAT: Pending CT: Pending MRI: N/A LE US: N/A Cath: Pending Echo:completed EKG: Pending EF %: 55 PI's: (R)50dom (L)72 Carotid: Completed Mapping: Pending Dental: Pending PFT's: N/A Basename 10/30/14 0632 WBC 6.65 HB 10.0* HCT 30.2* PLT 217 INR 1.0 CREAT 1.06 UA:negative 10/29/14 HCG:N/A ABO/ABO Confirmed: O neg/neg 11/01/14 Blood ordered: No SA Swab: Yes - results: Neg SA/MRSA Last Dose of Anticoagulation: SC Heparin Op Note: Yes, 2001 Pacemaker Check: N/A Consults: ID, Interventional Cardiology, Dentistry DM: Yes HBA1C, [place] (%) Date Value 03/30/2011 6.0 Hemoglobin A1C (%) Date Value 07/13/2014 5.7 Cardiac Surgical prep: Yes 5 meter walk test completed. Test 1 -->4.-93 Test 2 -->5.35 Test 3-->5.45 SIGNATURE: Shirlene Almonte CNP CHECKED BY: DAV DATE of SERVICE: 10/30/2014 TIME of SERVICE: 3:01 PM S/P aortic valve replacement with prosthetic valve 08/09/2013 11/03/2014 Lateral epicondylitis of left elbow 03/11/2013 10/20/2014 Lumbar disc herniation with radiculopathy 08/21/2009 07/15/2014 Disorders of bursae and tend ons in shoulder region, unspecified 04/14/2007 07/15/2014 GEN CONVUL EPI W/O MENTN INTRACT 11/03/2006 07/15/2014 SKIN CARCINOMA LIP, SKIN OF 05/19/2006 07/15/2014 DIABETES MELLITUS TYPE II UNCONTR UNCOMPL 06/18/2005 07/15/2014 Other and unspecified hyperlipidemia 06/18/2005 06/09/2013 documented as of this encounter (statuses as of 05/14/2023) [facility] History of Past illness Narrative* Problem Noted Date Diagnosed Date Resolved Date Rotator cuff syndrome of both shoulders 07/27/2015 11/28/2015 Atrial fibrillation 11/06/2014 11/24/19 Overview: History: no pre op history Assessment: post op AF on 11/06, maintaining sinus Plan: con't amio taper and beta tico, no AC per CTS YOLANDA (acute kidney injury) 11/04/2014 Overview: Hx of YOLANDA (Scr 2.1) in August 2014 during admission for bactermia/diagnosis of PVE. A/P -resolved Blood loss anemia 11/04/2014 09/13/2016 Overview: History: recent OHS Assessment: stable, no s/s of bleeding noted Plan: repeat labs in OPD Hypotension 11/02/2014 11/03/2014 Overview: A/P: Refractory to fluid resuscitation, requiring NE infusion. Transfusing 1pRBC. Goal maps >65 On mechanically assisted ventilation 11/02/2014 11/03/2014 Overview: Grade II: WTE as tolerated Hypoxemia 11/02/2014 11/03/2014 Overview: A/P: Initial pO2 was 63 on arrival to ICU, FiO2 increased to 60%. Monitor ABGs Preop testing 11/01/2014 11/03/2014 Overview: [facility] Surgeon: Amandeep Putnam M.D. Informed Consent Completed: yes STS Score: p CAD: Yes - CAD on Problem List: Yes Is intended procedure a CABG: No - is a beta tico ordered? Yes H & P completed: Yes PA/LAT: Pending CT: Pending MRI: N/A LE US: N/A Cath: Pending Echo:completed EKG: Pending EF %: 55 PI's: (R)50dom (L)72 Carotid: Completed Mapping: Pending Dental: Pending PFT's: N/A Basename 10/30/14 0632 WBC 6.65 HB 10.0* HCT 30.2* PLT 217 INR 1.0 CREAT 1.06 UA:negative 10/29/14 HCG:N/A ABO/ABO Confirmed: O neg/neg 11/01/14 Blood ordered: No SA Swab: Yes - results: Neg SA/MRSA Last Dose of Anticoagulation: SC Heparin Op Note: Yes, 2001 Pacemaker Check: N/A Consults: ID, Interventional Cardiology, Dentistry DM: Yes HBA1C, [place] (%) Date Value 03/30/2011 6.0 Hemoglobin A1C (%) Date Value 07/13/2014 5.7 Cardiac Surgical prep: Yes 5 meter walk test completed. Test 1 -->4.-93 Test 2 -->5.35 Test 3-->5.45 SIGNATURE: Shirlene Almonte CNP CHECKED BY: DAV DATE of SERVICE: 10/30/2014 TIME of SERVICE: 3:01 PM S/P aortic valve replacement with prosthetic valve 08/09/2013 11/03/2014 Lateral epicondylitis of left elbow 03/11/2013 10/20/2014 Lumbar disc herniation with radiculopathy 08/21/2009 07/15/2014 Disorders of bursae and tend ons in shoulder region, unspecified 04/14/2007 07/15/2014 GEN CONVUL EPI W/O MENTN INTRACT 11/03/2006 07/15/2014 SKIN CARCINOMA LIP, SKIN OF 05/19/2006 07/15/2014 DIABETES MELLITUS TYPE II UNCONTR UNCOMPL 06/18/2005 07/15/2014 Other and unspecified hyperlipidemia 06/18/2005 06/09/2013 documented as of this encounter (statuses as of 05/26/2023) [facility] note* Diagnosis Microscopic hematuria- Primary Plantar fasciitis Plantar fascial fibromatosis documented in this encounter [facility]* Diagnosis Neuroma of foot- Primary 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, including hip Right foot pain Pain in limb [facility] Diagnosis Essential hypertension Unspecified essential hypertension 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) 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, including hip [facility] Diagnosis Type 2 diabetes mellitus without complication, without long-term current use of insulin (HCC)- Primary 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) [facility] (obstructive sleep apnea) Obstructive sleep apnea (adult) (pediatric) Hyperlipidemia LDL goal <100 Other and unspecified hyperlipidemia Encounter to establish care Other reasons for seeking consultation Essential hypertension Unspecified essential hypertension Chronic insomnia Insomnia, unspecified S/P AVR (aortic valve replacement) and aortoplasty Heart valve replaced by other means S/P CABG (coronary artery bypass graft) 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, including hip [facility] Diagnosis Neuroma of foot- Primary 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, including hip Right foot pain Pain in limb Type 2 diabetes mellitus without complication, without long-term current use of insulin (HCC) 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, including hip [facility] Diagnosis Pre-operative examination- Primary Preoperative examination, unspecified 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, including hip 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) Primary hypertension Unspecified essential hypertension Hyperlipidemia LDL goal <100 Other and unspecified hyperlipidemia COREEN (obstructive sleep apnea) Obstructive sleep apnea (adult) (pediatric) S/P AVR (aortic valve replacement) and aortoplasty Heart valve replaced by other means Aortic valve stenosis with insufficiency, etiology of cardiac valve disease unspecified Basal cell carcinoma of lower extremity, unspecified laterality Type 2 diabetes mellitus without complication, without long-term current use of insulin (HCC) 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, including hip [facility] Neuroma of foot- Primary 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, including hip Right foot pain Pain in limb [facility] Diagnosis Neuroma of foot- Primary 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, including hip Right foot pain Pain in limb Type 2 diabetes mellitus without complication, without long-term current use of insulin (HCC) [facility] Diagnosis Epididymitis, left- Primary Orchitis and epididymitis, unspecified Left testicular pain [facility] Diagnosis Benign prostatic hyperplasia without lower urinary tract symptoms- Primary [facility] Diagnosis URI with cough and congestion- Primary Sore throat Acute pharyngitis [facility] Cough [facility] Cough [facility] Diagnosis Influenza A- Primary Influenza with other respiratory manifestations Persistent cough Cough [facility] Diagnosis Left hip pain- Primary Pain in joint, pelvic region and thigh It band syndrome, left Actinic keratoses Actinic keratosis Strep throat exposure Contact with or exposure to other communicable diseases [facility] Diagnosis Left hip pain- Primary Pain in joint, pelvic region and thigh It band syndrome, left [facility] Diagnosis Neuroma of foot- Primary 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, including hip 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, including hip [facility] Diagnosis Left hip pain- Primary Pain in joint, pelvic region and thigh Iliotibial band syndrome, left 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, including hip [facility] Diagnosis Pre-op evaluation- Primary Preoperative examination, unspecified S/P CABG (coronary artery bypass graft) Postsurgical aortocoronary bypass status S/P AVR (aortic valve replacement) and aortoplasty Heart valve replaced by other means Primary hypertension Unspecified essential hypertension Hyperlipidemia LDL goal <100 Other and unspecified hyperlipidemia COREEN (obstructive sleep apnea) Obstructive sleep apnea (adult) (pediatric) Type 2 diabetes mellitus without complication, without long-term current use of insulin (HCC) 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, including hip [facility] Neuroma of foot- Primary 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, including hip Right foot pain Pain in limb Type 2 diabetes mellitus without complication, without long-term current use of insulin (HCC) 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, including hip [facility]* Diagnosis Bacterial sinusitis- Primary Unspecified sinusitis (chronic) Viral URI with cough Acute upper respiratory infections of unspecified site [facility] Diagnosis Neuroma of foot- Primary 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, including hip Right foot pain Pain in limb Type 2 diabetes mellitus without complication, without long-term current use of insulin (HCC) Capsulitis of foot, right Plantar plate injury, right, sequela [facility]* Diagnosis Pain in testicle, unspecified laterality- Primary Bilateral varicoceles Scrotal varices Acute pain of left knee AK (actinic keratosis) Actinic keratosis COREEN (obstructive sleep apnea) Obstructive sleep apnea (adult) (pediatric) Chronic insomnia Insomnia, unspecified Type 2 diabetes mellitus without complication, without long-term current use of insulin (HCC) Hyperlipidemia LDL goal <100 Other and unspecified hyperlipidemia Essential hypertension Unspecified essential hypertension 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) [facility]* Diagnosis Type 2 diabetes mellitus without complication, without long-term current use of insulin (HCC)- Primary Primary hypertension Unspecified essential hypertension Hyperlipidemia LDL goal <100 Other and unspecified hyperlipidemia documented in this encounter [facility] note* Diagnosis Right hamstring injury, subsequent encounter- Primary documented in this encounter [facility] note* Diagnosis Epididymitis, left Orchitis and epididymitis, unspecified Left testicular pain documented in this encounter [facility] note* Diagnosis Acute pain of right knee- Primary Right hamstring injury, sequela documented in this encounter [facility] note* Diagnosis Acute pain of right knee Right hamstring injury, sequela documented in this encounter [facility] note* Diagnosis Chronic pain of right knee- Primary Hamstring injury, right, sequela documented in this encounter [facility] for referral (narrative)* Diagnostic Procedure Only (Routine) - Pending Review Specialty Diagnoses / Procedures Referred By Contac t Referred To Contact US IMAGING Diagnoses Neuroma of foot Right foot pain Type 2 diabetes mellitus without complication, without long-term current use of insulin (HCC) Procedures US FOOT RT US COMPL JOINT R-T W/IMAGE DOCUMENTATION US LMTD JOINT/OTH NONVASC XTR STRUX R-T W/IMG Felisha Briceno DPM [address] [place] [address] Us Imaging Referral ID Status Reason Start Date Expiration Date Visits Requested Visits Authorized [id number] Pending Review Auto-Generat ed Referral 04/23/2022 05/23/2023 1 1 [facility] for referral (narrative)* Diagnostic Procedure Only (Urgent) - Authorized Specialty Diagnoses / Procedures Referred By Contac t Referred To Contact US IMAGING Diagnoses Epididymitis, left Left testicular pain Procedures US SCROTUM AND CONTENTS US SCROTUM & CONTENTS Brigid Pérez PA-C [address] [place] [address] Us Imaging Referral ID Status Reason Start Date Expiration Date Visits Requested Visits Authorized [id number] Authorized Auto-Generat ed Referral 04/30/2022 05/30/2023 1 1 * Diagnostic Procedure Only (Routine) - Authorized Specialty Diagnoses / Procedures Referred By Contac t Referred To Contact US IMAGING Diagnoses Epididymitis, left Left testicular pain Procedures US DOPPLER COMPLETE DUP-SCAN ARTL DALIA ABDL/PEL/SCROT&/RPR ORGN [facility] Brigid Pérez PA-C [address] [place] [address] Us Imaging Referral ID Status Reason Start Date Expiration Date Visits Requested Visits Authorized [id number] Authorized Auto-Generat ed Referral 04/30/2022 05/30/2023 1 1 [facility] for referral (narrative)* Diagnostic Procedure Only (Routine) - Closed Specialty Diagnoses / Procedures Referred By Contac t Referred To Contact XR IMAGING Diagnoses Acute pain of left knee Procedures XR KNEE GENERAL 4V AP BOTH/PA BOTH/LAT/MERC LEFT RADIOLOGIC EXAM KNEE COMPLETE 4/MORE VIEWS Gavin Coe APRN.[employer] [address] [place] [address] Xr Imaging Referral ID Status Reason Start Date Expiration Date V isits Requested Visits Authorized [id number] Closed Auto-Generate d Referral 01/27/2023 02/26/2024 1 1 * Consult, Test, Treat (Routine) - Authorized Specialty Diagnoses / Procedures Referred By Contac t Referred To Contact Urology Diagnoses Pain in testicle, unspecified laterality Bilateral varicoceles Procedures CONSULT TO UROLOGY OFFICE/OUTPATIENT [facility] HIGH MDM 60-74 MINUTES Gavin Coe APRN.[employer] [address] [place] [address] Referral ID Status Reason Start Date Expiration Date Visits Requested Visits Authorized [id number] Authorized PCP Requested Referral 01/27/2023 01/27/2024 1 1 [facility] for referral (narrative)* Diagnostic Procedure Only (Routine) - Closed Specialty Diagnoses / Procedures Referred By Contac t Referred To Contact XR IMAGING Diagnoses Right hamstring injury, subsequent encounter Procedures XR KNEE GENERAL 4V AP BOTH/PA BOTH/LAT/MERC RIGHT RADIOLOGIC EXAM KNEE COMPLETE 4/MORE VIEWS Brigid Pérez PA-C [address] [place] [address] [place] [address] Referral ID Status Reason Start Date Expiration Date V isits Requested Visits Authorized [id number] Closed Auto-Generate d Referral 04/04/2023 05/03/2024 1 1 [facility] Diagnostic Procedure Only (Urgent) - Closed Specialty Diagnoses / Procedures Referred By Noelle t Referred To Contact US IMAGING Diagnoses Epididymitis, left Left testicular pain Procedures US SCROTUM AND CONTENTS US SCROTUM & CONTENTS Brigid Pérez PA-C [address] [place] [address] [place] [address] Referral ID Status Reason Start Date Expiration Date V isits Requested Visits Authorized [id number] Closed Auto-Generate d Referral 04/30/2022 05/30/2023 1 1 * Diagnostic Procedure Only (Routine) - Closed Specialty Diagnoses / Procedures Referred By Noelle tesfaye Referred To Contact US IMAGING Diagnoses Epididymitis, left Left testicular pain Procedures US DOPPLER COMPLETE DUP-SCAN ARTL DALIA ABDL/PEL/SCROT&/RPR ORGN [facility] Brigid Pérez PA-C [address] [place] [address] [place] [address] Referral ID Status Reason Start Date Expiration Date V isits Requested Visits Authorized [id number] Closed Auto-Generate d Referral 04/30/2022 05/30/2023 1 1 [facility] Advance Directives Documents on File Type Date Recorded 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 Advance Directive(s) 09/22/2017 8:45 AM Documents on File Type Date Recorded 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 Advance Directive(s) 09/22/2017 8:45 AM Reason for Referral Specialty Diagnoses / Procedures Referred By Contac t Referred To Contact Diagnoses COREEN (obstructive sleep apnea) Procedures CONSULT TO SLEEP MEDICINE - ADULT OFFICE/OUTPATIENT [facility] 60-74 MINUTES Gavin Coe APRN.[employer] [address] [place] [address] Referral ID Status Reason Start Date Expiration Date Visits Requested Visits Authorized [id number] Authorized PCP Requested Referral 02/04/2022 02/04/2023 1 1 Specialty Diagnoses / Procedures Referred By Contac t Referred To Contact Cardiology Diagnoses 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) S/P AVR (aortic valve replacement) and aortoplasty S/P CABG (coronary artery bypass graft) Procedures CONSULT TO CARDIOLOGY OFFICE/OUTPATIENT [facility] 60-74 MINUTES Gavin Coe, OMAR.[employer] [address] [place] [address] Referral ID Status Reason Start Date Expiration Date Visits Requested Visits Authorized [id number] Authorized PCP Requested Referral 02/04/2022 02/04/2023 1 1 Specialty Diagnoses / Procedures Referred By Contac t Referred To Contact [facility] Diagnoses Left hip pain It band syndrome, left Procedures CONSULT TO PHYSICAL THERAPY PHYSICAL THERAPY EVALUATION HIGH COMPLEX 45 MINS Elma Jung MD [address] [place] [address] [facility] [address] [place] [address] Referral ID Status Reason Start Date Expiration Date Visits Requested Visits Authorized [id number] Pending Review Auto-Generat ed Referral 08/12/2022 08/12/2023 1 1 Specialty Diagnoses / Procedures Referred By Contac t Referred To Contact XR IMAGING Diagnoses Left hip pain Procedures XR HIP GENERAL 3V PELV/AP/LAT LEFT RADEX HIP UNILATERAL WITH PELVIS 2-3 VIEWS Elma Jung MD [address] [place] [address] Xr Imaging Referral ID Status Reason Start Date Expiration Date V isits Requested Visits Authorized [id number] Closed Auto-Generate d Referral 08/12/2022 09/11/2023 1 1 Specialty Diagnoses / Procedures Referred By Contac t Referred To Contact [facility] Diagnoses Left hip pain It band syndrome, left Procedures PT REHAB FOLLOW UP ORDER THERAPEUTIC EXERCISES RE, EA 15 MIN. Giovana Soler, PT [facility] [place] [address] [place] [id number] Referral ID Status Reason Start Date Expiration Date Visits Requested Visits Authorized [id number] Pending Review PCP Requested Referral Auto-Generate d Referral 08/19/2022 11/17/2022 1 1 Specialty Diagnoses / Procedures Referred By Contac t Referred To Contact [facility] Diagnoses Acute pain of right knee Right hamstring injury, sequela Procedures CONSULT TO PHYSICAL THERAPY PHYSICAL THERAPY EVALUATION HIGH COMPLEX 45 MINS Brigid Pérez PA-C [address] [place] [address] [facility] [address] [address] Referral ID Status Reason Start Date Expiration Date Visits Requested Visits Authorized [id number] Authorized Auto-Generat ed Referral 06/23/2022 06/22/2023 99 99 Summary Purpose Family History No Family History Records FoundNo Family History Records Found Additional Source Comments Source Comments (unrecognize d section and content) In the event this informatio n is protected by the [facility] Confidentiality of Alcohol and Drug Abuse Patient Records regulations: The Federal rules restrict any use of the information to criminally investigate or prosecute any alcohol or drug abuse patient.[facility] the event this information is protected by the Federal Confidentiality of Alcohol and Drug Abuse Patient Records regulations: The Federal rules restrict any use of the information to criminally investigate or prosecute any alcohol or drug abuse patient.[facility] the event this information is protected by the Federal Confidentiality of Alcohol and Drug Abuse Patient Records regulations: The Federal rules restrict any use of the information to criminally investigate or prosecute any alcohol or drug abuse patient.[facility] the event this information is protected by the Federal Confidentiality of Alcohol and Drug Abuse Patient Records regulations: The Federal rules restrict any use of the information to criminally investigate or prosecute any alcohol or drug abuse patient.[facility] the event this information is protected by the Federal Confidentiality of Alcohol and Drug Abuse Patient Records regulations: The Federal rules restrict any use of the information to criminally investigate or prosecute any alcohol or drug abuse patient.[facility] the event this information is protected by the Federal Confidentiality of Alcohol and Drug Abuse Patient Records regulations: The Federal rules restrict any use of the information to criminally investigate or prosecute any alcohol or drug abuse patient.[facility] the event this information is protected by the Federal Confidentiality of Alcohol and Drug Abuse Patient Records regulations: The Federal rules restrict any use of the information to criminally investigate or prosecute any alcohol or drug abuse patient.[facility] the event this information is protected by the Federal Confidentiality of Alcohol and Drug Abuse Patient Records regulations: The Federal rules restrict any use of the information to criminally investigate or prosecute any alcohol or drug abuse patient.[facility] the event this information is protected by the Federal Confidentiality of Alcohol and Drug Abuse Patient Records regulations: The Federal rules restrict any use of the information to criminally investigate or prosecute any alcohol or drug abuse patient.[facility] the event this information is protected by the Federal Confidentiality of Alcohol and Drug Abuse Patient Records regulations: The Federal rules restrict any use of the information to criminally investigate or prosecute any alcohol or drug abuse patient.[facility] the event this information is protected by the Federal Confidentiality of Alcohol and Drug Abuse Patient Records regulations: The Federal rules restrict any use of the information to criminally investigate or prosecute any alcohol or drug abuse patient.[facility] the event this information is protected by the Federal Confidentiality of Alcohol and Drug Abuse Patient Records regulations: The Federal rules restrict any use of the information to criminally investigate or prosecute any alcohol or drug abuse patient.[facility] the event this information is protected by the Federal Confidentiality of Alcohol and Drug Abuse Patient Records regulations: The Federal rules restrict any use of the information to criminally investigate or prosecute any alcohol or drug abuse patient.[facility] the event this information is protected by the Federal Confidentiality of Alcohol and Drug Abuse Patient Records regulations: The Federal rules restrict any use of the information to criminally investigate or prosecute any alcohol or drug abuse patient.[facility] the event this information is protected by the Federal Confidentiality of Alcohol and Drug Abuse Patient Records regulations: The Federal rules restrict any use of the information to criminally investigate or prosecute any alcohol or drug abuse patient.[facility] the event this information is protected by the Federal Confidentiality of Alcohol and Drug Abuse Patient Records regulations: The Federal rules restrict any use of the information to criminally investigate or prosecute any alcohol or drug abuse patient.[facility] the event this information is protected by the Federal Confidentiality of Alcohol and Drug Abuse Patient Records regulations: The Federal rules restrict any use of the information to criminally investigate or prosecute any alcohol or drug abuse patient.[facility]In the event this information is protected by the Federal Confidentiality of Alcohol and Drug Abuse Patient Records regulations: The Federal rules restrict any use of the information to criminally investigate or prosecute any alcohol or drug abuse patient.[facility] the event this information is protected by the Federal Confidentiality of Alcohol and Drug Abuse Patient Records regulations: The Federal rules restrict any use of the information to criminally investigate or prosecute any alcohol or drug abuse patient.[facility] the event this information is protected by the Federal Confidentiality of Alcohol and Drug Abuse Patient Records regulations: The Federal rules restrict any use of the information to criminally investigate or prosecute any alcohol or drug abuse patient.[facility] HospitalIn the event this information is protected by the Federal Confidentiality of Alcohol and Drug Abuse Patient Records regulations: The Federal rules restrict any use of the information to criminally investigate or prosecute any alcohol or drug abuse patient.[facility] HospitalIn the event this information is protected by the Federal Confidentiality of Alcohol and Drug Abuse Patient Records regulations: The Federal rules restrict any use of the information to criminally investigate or prosecute any alcohol or drug abuse patient.[facility]In the event this information is protected by the Federal Confidentiality of Alcohol and Drug Abuse Patient Records regulations: The Federal rules restrict any use of the information to criminally investigate or prosecute any alcohol or drug abuse patient.[facility]In the event this information is protected by the Federal Confidentiality of Alcohol and Drug Abuse Patient Records regulations: The Federal rules restrict any use of the information to criminally investigate or prosecute any alcohol or drug abuse patient.[facility]In the event this information is protected by the Federal Confidentiality of Alcohol and Drug Abuse Patient Records regulations: The Federal rules restrict any use of the information to criminally investigate or prosecute any alcohol or drug abuse patient.[facility]In the event this information is protected by the Federal Confidentiality of Alcohol and Drug Abuse Patient Records regulations: The Federal rules restrict any use of the information to criminally investigate or prosecute any alcohol or drug abuse patient.[facility]In the event this information is protected by the Federal Confidentiality of Alcohol and Drug Abuse Patient Records regulations: The Federal rules restrict any use of the information to criminally investigate or prosecute any alcohol or drug abuse patient.[facility] HospitalIn the event this information is protected by the Federal Confidentiality of Alcohol and Drug Abuse Patient Records regulations: The Federal rules restrict any use of the information to criminally investigate or prosecute any alcohol or drug abuse patient.[facility]In the event this information is protected by the Federal Confidentiality of Alcohol and Drug Abuse Patient Records regulations: The Federal rules restrict any use of the information to criminally investigate or prosecute any alcohol or drug abuse patient.[facility] HospitalIn the event this information is protected by the Federal Confidentiality of Alcohol and Drug Abuse Patient Records regulations: The Federal rules restrict any use of the information to criminally investigate or prosecute any alcohol or drug abuse patient.[facility] HospitalIn the event this information is protected by the Federal Confidentiality of Alcohol and Drug Abuse Patient Records regulations: The Federal rules restrict any use of the information to criminally investigate or prosecute any alcohol or drug abuse patient.[facility] HospitalIn the event this information is protected by the Federal Confidentiality of Alcohol and Drug Abuse Patient Records regulations: The Federal rules restrict any use of the information to criminally investigate or prosecute any alcohol or drug abuse patient.[facility] HospitalIn the event this information is protected by the Federal Confidentiality of Alcohol and Drug Abuse Patient Records regulations: The Federal rules restrict any use of the information to criminally investigate or prosecute any alcohol or drug abuse patient.[facility] HospitalIn the event this information is protected by the Federal Confidentiality of Alcohol and Drug Abuse Patient Records regulations: The Federal rules restrict any use of the information to criminally investigate or prosecute any alcohol or drug abuse patient.[facility] HospitalIn the event this information is protected by the Federal Confidentiality of Alcohol and Drug Abuse Patient Records regulations: The Federal rules restrict any use of the information to criminally investigate or prosecute any alcohol or drug abuse patient.[facility] HospitalIn the event this information is protected by the Federal Confidentiality of Alcohol and Drug Abuse Patient Records regulations: The Federal rules restrict any use of the information to criminally investigate or prosecute any alcohol or drug abuse patient.[facility] HospitalIn the event this information is protected by the Federal Confidentiality of Alcohol and Drug Abuse Patient Records regulations: The Federal rules restrict any use of the information to criminally investigate or prosecute any alcohol or drug abuse patient.[facility] HospitalIn the event this information is protected by the Federal Confidentiality of Alcohol and Drug Abuse Patient Records regulations: The Federal rules restrict any use of the information to criminally investigate or prosecute any alcohol or drug abuse patient.[facility] HospitalIn the event this information is protected by the Federal Confidentiality of Alcohol and Drug Abuse Patient Records regulations: The Federal rules restrict any use of the information to criminally investigate or prosecute any alcohol or drug abuse patient.[facility] HospitalIn the event this information is protected by the Federal Confidentiality of Alcohol and Drug Abuse Patient Records regulations: The Federal rules restrict any use of the information to criminally investigate or prosecute any alcohol or drug abuse patient.[facility] HospitalIn the event this information is protected by the Federal Confidentiality of Alcohol and Drug Abuse Patient Records regulations: The Federal rules restrict any use of the information to criminally investigate or prosecute any alcohol or drug abuse patient.[facility] HospitalIn the event this information is protected by the Federal Confidentiality of Alcohol and Drug Abuse Patient Records regulations: The Federal rules restrict any use of the information to criminally investigate or prosecute any alcohol or drug abuse patient.[facility] HospitalIn the event this information is protected by the Federal Confidentiality of Alcohol and Drug Abuse Patient Records regulations: The Federal rules restrict any use of the information to criminally investigate or prosecute any alcohol or drug abuse patient.[facility] Reason for Visit (unrecogniz ed section and content) Reason Comments Follow Up testing, left foot p ain Reason Comments Results Reason Comments Pain (foot) Follow Up Reason Comments Appointment 10/24/21 has been [facility] Specialty Diagnoses / Procedures Referred By Noelle t Referred To Contact [facility] IMAGING Diagnoses Right foot pain Procedures MRI FOOT/TOES WO IVCON RT MRI LOWER EXTREM OTH/THN JT W/O CONTR Leopoldo Mayen [address] [place] [address] Mr Imaging Referral ID Status Reason Start Date Expiration Date V isits Requested Visits Authorized [id number] Closed Auto-Generat ed Referral Clearance Not Met - Admin/Chairm an/Director Advise to Postpone/Res chedule or Not Proceed 08/17/2021 10/01/2021 1 1 Reason Comments Refill Request Reason Comments Physical Reason Comments Pre-Op Visit Reason Comments Consult Reason Comments Post Op Established Patient Reason Comments Appointment Reason Comments Testicular Pain Left testicle pain f or the past 2-4 weeks, mild.Denies any injury, swelling, or discoloration. Reason Comments Patient Update Reason Comments Cough Fever, [place], x1 day. Reason Comments Patient Question Reason Comments requesting refill on medication Reason Comments Cough Reason Comments Left Hip Pain Reason Comments rash Patient Question Reason Comments Insurance Authorization [employer] Reason Comments PT Eval Specialty Diagnoses / Procedures Referred By Contac t Referred To Contact [facility] Diagnoses Left hip pain It band syndrome, left Procedures CONSULT TO PHYSICAL THERAPY PHYSICAL THERAPY EVALUATION HIGH COMPLEX 45 MINS THERAPEUTIC EXERCISES RE, EA 15 MIN. Elma Jung MD [address] [place] [address] [address] [facility] [address] [address] Referral ID Status Reason Start Date Expiration Date V isits Requested Visits Authorized [id number] Authorized 08/13/2022 06/22/2023 99 99 Reason Comments Physical Therapy Specialty Diagnoses / Procedures Referred By Contac t Referred To Contact [facility] Diagnoses Left hip pain It band syndrome, left Procedures CONSULT TO PHYSICAL THERAPY PHYSICAL THERAPY EVALUATION HIGH COMPLEX 45 MINS THERAPEUTIC EXERCISES RE, EA 15 MIN. Elma Jung MD [address] [place] [address] [address] [facility] [address] [address] Reason Comments Anesthesia Consult Reason Comments Established Patient Pre-Op Visit Reason Comments Cough nasal drainage x 2 w eeks, upper left tooth pain x last night Reason Comments Post Op Reason Comments Multiple Concerns Reason Comments 1 month f/u Blood pressure Reason Comments Radiology US Specialty Diagnoses / Procedures Referred By Contac t Referred To Contact [facility] Diagnoses Epididymitis, left Left testicular pain Procedures US SCROTUM AND CONTENTS US SCROTUM & CONTENTS Brigid Pérez PA-C [address] [place] [address] [place] [id number] Referral ID Status Reason Start Date Expiration Date V isits Requested Visits Authorized [id number] Closed Auto-Generate d Referral 04/30/2022 05/30/2023 1 1 Reason Onset Date Comments Refill Request 04/28/2023 Reason Comments Rectal Bleeding Reason Comments Orders Reason Comments PT Eval Specialty Diagnoses / Procedures Referred By Contac t Referred To Contact [facility] Diagnoses Acute pain of right knee Right hamstring injury, sequela Procedures CONSULT TO PHYSICAL THERAPY PHYSICAL THERAPY EVALUATION HIGH COMPLEX 45 MINS Brigid Pérez PA-C [address] [place] [address] [facility] [place] [address] [place] [address] Referral ID Status Reason Start Date Expiration Date Visits Requested Visits Authorized [id number] Authorized Auto-Generat ed Referral 06/23/2022 06/22/2023 99 99 Care Teams (unrecognized sec tion and content) Fast Food Worker Relationship Specialty Start Date End Date Benton Mcdaniel APRN.ED [place]VAR[place] [address] [place] [address] PCP - General Family Practice 02/07/21 Katheryn Sinclair, RN [facility]itional [facility] 11/01/14 Fast Food Worker Relationship Specialty Start Date End Date Benton Mcdaniel APRN.ED [place]VAR[place]O [address] [place] [address] PCP - General Family Practice 02/07/21 Katheryn Sinclair, RN [facility]itional [facility] 11/01/14 Fast Food Worker Relationship Specialty Start Date End Date Benton Mcdaniel, OMAR.ED [address]VAR[address] [place] [address] PCP - General Family Practice 02/07/21 Katheryn Sinclair, ANNIE [facility] 11/01/14 Fast Food Worker Relationship Specialty Start Date End Date Benton Mcdaniel, MATERIAL MANAGER.CHRISTIANO, DNP [address] [facility] [place] [address] PCP - General Family Practice 02/07/21 Katheryn Sinclair RN [facility]itional [facility] 11/01/14 Fast Food Worker Relationship Specialty Start Date End Date Benton Mcdaniel, MATERIAL MANAGER.CHRISTIANO, DNP [address] [facility] [place] [address] PCP - General Family Practice 02/07/21 Katheryn Sinclair RN [facility]itional [facility] 11/01/14 Fast Food Worker Relationship Specialty Start Date End Date Benton Mcdaniel, MATERIAL MANAGER.CHRISTIANO, DNP [address] [facility] [place] [address] PCP - General Family Practice 02/07/21 Katheryn Sinclair RN Transitional [facility] 11/01/14 Fast Food Worker Relationship Specialty Start Date End Date Benton Mcdaniel, MATERIAL MANAGER.CHRISTIANO DNP [address] [facility] [place] [address] PCP - General Family Practice 02/07/21 Katheryn Sinclair RN [facility]itional [facility] 11/01/14 Fast Food Worker Relationship Specialty Start Date End Date Elma Jung MD [address] [facility] [place] [address] PCP - General Family Practice 02/04/22 Katheryn Sinclair RN [facility]itional [facility] 11/01/14 Fast Food Worker Relationship Specialty Start Date End Date Elma Jung MD [address] [facility] [place] [address] PCP - General Family Practice 02/04/22 Katheryn Sinclair, RN Transitional [facility] 11/01/14 Fast Food Worker Relationship Specialty Start Date End Date Elma Jung MD [address] [facility] [place] [address] PCP - General Family Practice 02/04/22 Katheryn Sinclair, ANNIE [facility] 11/01/14 Fast Food Worker Relationship Specialty Start Date End Date Elma Jung MD [address] [facility] [place] [address] PCP - General Family Practice 02/04/22 Katheryn Sinclair RN Transitional [facility] 11/01/14 Fast Food Worker Relationship Specialty Start Date End Date Elma Jung MD [address] [facility] [place] [address] PCP - General Family Medicine 02/04/22 Katheryn Sinclair RN Transitional [facility] 11/01/14 Fast Food Worker Relationship Specialty Start Date End Date Elma Jung MD [address] [facility] [place] [address] PCP - General Family Medicine 02/04/22 Katheryn Sinclair RN Transitional [facility] 11/01/14 Fast Food Worker Relationship Specialty Start Date End Date Elma Jung MD [address] [facility] [place] [address] PCP - General Family Medicine 02/04/22 Katheryn Sinclair, ANNIE Transitional [facility] 11/01/14 Fast Food Worker Relationship Specialty Start Date End Date Elma Jung MD [address] [facility] [place] [address] PCP - General Family Medicine 02/04/22 Katheryn Sinclair, ANNIE Transitional [facility] 11/01/14 Fast Food Worker Relationship Specialty Start Date End Date Elma Jung MD [address] [place] [address] PCP - General Family Medicine 02/04/22 Katheryn Sinclair, ANNIE Transitional [facility] Cardiology 11/01/14 Fast Food Worker Relationship Specialty Start Date End Date Elma Jung MD [address] [facility] [place] [address] PCP - General Family Medicine 02/04/22 Katheryn Sinclair RN Transitional [facility] Cardiology 11/01/14 Fast Food Worker Relationship Specialty Start Date End Date Elma Jung MD [address] [place] [address] PCP - General Family Medicine 02/04/22 Katheryn Sinclair RN Transitional [facility] 11/01/14 Fast Food Worker Relationship Specialty Start Date End Date Elma Jung MD [address] [place] [address] PCP - General Family Medicine 02/04/22 Katheryn Sinclair, ANNIE Transitional [facility] 11/01/14 Fast Food Worker Relationship Specialty Start Date End Date Elma Jung MD [address] [facility] [place] [address] PCP - General Family Medicine 02/04/22 Katheryn Sinclair RN Transitional [facility] 11/01/14 Fast Food Worker Relationship Specialty Start Date End Date Elma Jung MD [address] [facility] [address] PCP - General Family Medicine 02/04/22 Katheryn Sinclair RN Transitional [facility]iology 11/01/14 Fast Food Worker Relationship Specialty Start Date End Date Elma Jung MD [address] [facility] [place] [address] PCP - General Family Medicine 02/04/22 Katheryn Sinclair RN Transitional [facility] 11/01/14 Fast Food Worker Relationship Specialty Start Date End Date Elma Jung MD [address] [facility] [place] [address] PCP - General Family Medicine 02/04/22 Katheryn Sinclair RN Transitional [facility] Cardiology 11/01/14 Fast Food Worker Relationship Specialty Start Date End Date Elma Jung MD [address] [facility] [place] [address] PCP - General Family Medicine 02/04/22 Katheryn Sinclair RN Transitional [facility] Cardiology 11/01/14 Fast Food Worker Relationship Specialty Start Date End Date Elma Jung MD [address] [facility] [place] [address] PCP - General Family Medicine 02/04/22 Katheryn Sinclair RN Transitional [facility] Cardiology 11/01/14 Fast Food Worker Relationship Specialty Start Date End Date Elma Jung MD [address] [facility] [place] [address] PCP - General Family Medicine 02/04/22 Katheryn Sinclair RN Transitional [facility] Cardiology 11/01/14 Fast Food Worker Relationship Specialty Start Date End Date Elma Jung MD [address] [facility] [place] [address] PCP - General Family Medicine 02/04/22 Katheryn Sinclair RN Transitional [facility] Cardiology 11/01/14 Fast Food Worker Relationship Specialty Start Date End Date Elma Jung MD [address] [facility] [place] [address] PCP - General Family Medicine 02/04/22 Katheryn Sinclair RN Transitional [facility] Cardiology 11/01/14 Fast Food Worker Relationship Specialty Start Date End Date Elma Jung MD [address] [facility] [place] [address] PCP - General Family Medicine 02/04/22 Katheryn Sinclair RN Transitional [facility] Cardiology 11/01/14 Fast Food Worker Relationship Specialty Start Date End Date Elma Jung MD [address] [facility] [place] [address] PCP - General Family Medicine 02/04/22 Katheryn Sinclair RN Transitional [facility] Cardiology 11/01/14 Fast Food Worker Relationship Specialty Start Date End Date Elma Jung MD [address] [facility] [place] [address] PCP - General Family Medicine 02/04/22 Katheryn Sinclair RN Transitional [facility] Cardiology 11/01/14 Fast Food Worker Relationship Specialty Start Date End Date Elma Jung MD [address] [facility] [place] [address] PCP - General Family Medicine 02/04/22 Katheryn Sinclair RN Transitional [facility] Cardiology 11/01/14 Fast Food Worker Relationship Specialty Start Date End Date Elma Jung MD [address] [facility] [place] [address] PCP - General Family Medicine 02/04/22 Katheryn Sinclair, ANNIE Transitional [facility] Cardiology 11/01/14 Fast Food Worker Relationship Specialty Start Date End Date Elma Jung MD [address] [place], [place] [address] PCP - General Family Medicine 02/04/22 Katheryn Sinclair RN Transitional [facility] Cardiology 11/01/14 Fast Food Worker Relationship Specialty Start Date End Date Elma Jung MD [address] [place], [place] [id number] PCP - General Family Medicine 02/04/22 Katheryn Sinclair RN Transitional [facility] Cardiology 11/01/14 Fast Food Worker Relationship Specialty Start Date End Date Elma Jung MD [address] [place], [place] [address] PCP - General Family Medicine 02/04/22 Katheryn Sinclair RN Transitional [facility] 11/01/14 (unrecognized sect ion and content) No Status Records FoundNo Status Records Found INFORMATION SOURCE (unrecogn ized section and content) DATE CREATED AUTHOR AUTHOR'S ORGANIZ ATION 05/15/2023 [facility] FOR RECORDS PERTAINING TO PATIENTS WHO ARE OR HAVE BEEN ENROLLED IN A CHEMICAL DEPENDENCY/SUBSTANCEABUSE PROGRAM, SOME INFORMATION MAY BE OMITTED. This clinical summary was aggregated from multiple sources. Caution should be exercised in using it in the provision of clinical care. This summary normalizes information from multiple sources, and as a consequence, information in this document may materially change the coding, format and clinical context of patient data. In addition, data may be omitted in some cases. CLINICAL DECISIONS SHOULD BE BASED ON THE PRIMARY CLINICAL RECORDS. [facility]. provides no warranty or guarantee of the accuracy or completeness of information in this document.
[2023-05-27 05:56] VITALS: BP 132/53; PULSE 51; RESP 18; TEMP 36.4; O2SAT 97; BMI 27.1
[2023-05-27] MEDS: Lactated Ringers 1,000 ML 15 ML IV (06:12)
--- NOTE | 2023-05-27 06:30 | COLBX_PTH ---
PATHOLOGY RESULTS PATIENT: YOLI HOLCOMB Jr. LOC: EN U#:[id number] AGE/SX: 72/M ROOM: RE05/27/[address]: Dr. Wilfrido Trujillo MD : 1950 BED: DIS: 05/27/2023 SPEC #: [id number] RECD: 05/27/23 13:10 STATUS: HECTOR DEMARCOLarisa #: [id number] LUPE: 05/27/23 06:[address]: Wilfrido Trujillo DEPT: SURGICAL PATHOLOGY RECD BY: Agueda Olivia ENTERED: 05/27/23 13:34 SP TYPE: COLON BX OTHR DR: Dr. Francisco Lee MD Tissues: Rectum, NOS Procedures: Surgery Specimen Level IV HEADER OPERATION: Flexible sigmoidoscopy, biopsy PRE-OP DIAGNOSIS: Bright red blood per rectum TISSUE SUBMITTED: Rectal mucosa biopsy MICROSCOPIC DIAGNOSIS Rectal mucosa, biopsy: Fragments of colonic mucosa, no pathologic diagnosis. SJ:anamaria 05/28/2023 MICROSCOPIC DESCRIPTION Slides are reviewed. GROSS DESCRIPTION Received in fixative is one container labeled with the patient's name and designated rectal mucosal biopsy. The specimen consists of two irregular fragments of light celaya soft tissue that in aggregate measure 0.5 x 0.3 x 0.1 cm. The specimen is totally submitted in one cassette. / SJ:rg 05/27/2023 TC:4 CPT: 08004
--- NOTE | 2023-05-27 06:31 | PCM.HP.BLA ---
History and Physical Date of Admission: 05/27/23 Date of Service: 05/05/23 MR#: [id number] Acct: [id number] Name: YOLI APODACA Jr. Rep #: [id number] : 1950 Provider: Dr. Wilfrido Trujillo MD Age/Sex: 72/M Location: [facility] Status: Signed Intake Vital Signs 04/29/2310:08 05/05/2312:35 Height 5 ft 10 in 5 ft 10 in Weight: 194 lb 4 oz BMI 27.8 BP 131/62 H Blood Pressure Location Rt brachial Position Sitting Respiration 18 Pulse 59 L Pulse Source Monitor Temp 97.8 F Temp Source Temporal Pulse Oximetry (%) 95 Oxygen Delivery Method room air Intake Visit Reasons: GI BLEED ER 04/29 Chief Complaint: GI bleed Drop Wire Aliner Required: No Is patient in pain?: No Allergies tramadol [From Ultram] Allergy (Verified 05/05/23 12:36) PT UNSURE OF REACTION Medications amlodipine 10 mg tablet 10 mg PO DAILY 09/23/14 [History Confirmed 05/05/23] aspirin 81 mg chewable tablet 81 mg PO DAILY@0800 09/23/14 [History Confirmed 05/05/23] atenolol 100 mg tablet 100 mg PO DAILY 09/23/14 [History Confirmed 05/05/23] hydrochlorothiazide 12.5 mg capsule 12.5 mg PO DAILY 09/23/14 [History Confirmed 05/05/23] lisinopril 40 mg tablet 40 mg PO DAILY 09/23/14 [History Confirmed 05/05/23] potassium chloride 10 mEq tablet,extended release (Klor-Con) 20 meq PO DAILY 09/23/14 [History Confirmed 05/05/23] pravastatin 40 mg tablet 40 mg PO QHS 09/23/14 [History Confirmed 05/05/23] ceftriaxone 2 gram solution for injection 2 g IV Q24 09/28/14 [History Confirmed 05/05/23] [facility] Medical History (Updated 05/05/23 @ 17:[address] Wilfrido Trujillo MD) Acute lower GI hemorrhage (~04/2023) Bicuspid aortic valve H/O diverticulitis of colon Surgical History (Updated 05/05/23 @ 12:35 by Francesca Aiken LPN) S/P heart valve repair Social History (Updated 05/05/23 @ 12:35 by Francesca Aiken LPN) Smoking Status: Never smoker alcohol intake: current alcohol intake frequency: holidays/special occasions only substance use type: does not use HPI HPI HPI: Patient is a 72-year-old male who presents for need to schedule diagnostic colonoscopy secondary to recent bright red blood per rectum. They are referred for surgical consultation from Dr. Jacome of emergency medicine as patient presented to the ER on 04/29/2023 due to complaints of bright red blood per rectum. He states that his first bowel movement in the morning was characterized by this blood loss and then 6-8 additional bowel movements followed of the same character. However, following his presentation to the ER all of these issues ceased. He confirms that there not been any antecedent straining and that his regular toilet time is not more than 2 minutes. Patient has had prior colonoscopy in September [address] Young of the [facility]. The results of prior scope were: Diverticulosis of the descending and sigmoid: recommended interval for follow-up was 10 years. Patient has no personal history of colon cancer or inflammatory bowel disease. However, Mr. Apodaca does report that 25 years ago he was evaluated for some uncomfortable lower abdominal pain and underwent an appendectomy just to be sure only to find out that he actually had diverticulitis and required several additional days in the hospital with a dietary restriction. He notes that he has been fine ever since. They describe their bowel habits as generally normal with some infrequent episodes of diarrhea/loose stools. They have not noticed recent bleeding or dark stools. They do not regularly take fiber supplements. They do consume significant fiber in their regular diet?Mr. Apodaca reports that he has actually tried to cut back on salads as these seem to run right through . Mr. Apodaca does make mention of a ache in the lower bowel and he notes that this has been present for at least the last month or 2, however, since his bleeding episode he has experienced it 13/01 and yet confirms that it did not simply start with the bleeding episode. He specifically denies any tissue protrusion. While he confirms a history of surface hemorrhoids he shares that these have not been present but more than 5 times in his whole life and he denies any present concerns for hemorrhoids was bulging tissue. Patient has no family history of colon cancer, inflammatory bowel disease, or diverticulitis. The patient's weight is not stable and he confesses that he has gained 10 pounds over the last 1 year due to a poor diet . He also shares that he has had some fatigue lately but attributes this to not sleeping well given his diagnosis of sleep apnea. The patient is not prescribed anticoagulants/blood thinners apart from a baby aspirin. Relevant prior abdominal surgical history includes: Appendectomy as discussed above Patient does not have a significant history of GERD/heartburn ROS General General: No weight change, appetite, fatigue, colon cancer, breast cancer or weakness HEENT HEENT: No difficulty swallowing, eye injury, eye surgery, swollen glands or hoarseness Endo Endocrine: No thyroid disease, diabetes mellitus, thyroid cancer, Hair loss, heat intolerance or cold intolerance Skin Skin: Yes changing moles; No rash Breast Breast: No left breast lump, right breast lump, nipple discharge, breast pain, abnormal mammogram, abnormal US or breast enlargement Musc Musculoskeletal: No back problems, arthritis, rheumatoid arthritis, gout or joint pain Cardio Cardiovascular: Yes murmur; No pacemaker, heart disease, atrial fibrillation, high blood pressure, heart attack, heart stent, palpitations, shortness of breat with exertion or chest pain Psych Psychiatric: No depression, anxiety or hearing voices Resp Respiratory: No shortness of breath, Yes sleep apnea, No cough, No COPD, No asthma, No emphysema and No wheezing Gastro Gastrointestinal: No abdominal pain, No nausea or vomiting, No diarrhea, Yes constipation, Yes blood in stool, No acid reflux, No hemorrhoids, No ulcers, No gallbladder problem and No black,tarry stools [place] Hematologic: Yes blood thinners, No blood disorders, No bleeding, No anemia and No blood clots Neuro Neurologic: No system reviewed and no additional complaints, except as documented, No as per HPI, No abnormal gait, No abnormal hearing, No abnormal movements, No abnormal speech, No behavioral changes, No burning sensations, No confusion, No convulsions, No disequilibrium, No dizziness, No localized weakness, No frequent falls, No headache(s), No lack of coordination, No loss of vision, No memory loss, No numbness, No other visual disturbances, No radicular pain, No restless legs, No sensory deficit, No syncope, No tingling, No tremor(s), No weakness and No other Exam Const General: cooperative, no acute distress and anxious Orientation: alert, awake and oriented x3 Resp Effort & Inspection: normal respiratory effort GI Other: Multiple well-healed port site scars/drainage tube exit scars in the epigastrium from patient's prior open heart procedures. Abdomen is nondistended, soft, nontender to palpation x4 quadrants Assessment and Plan Assessment and Plan (1) Bright red blood per rectum: Status: Acute Comment: This is a 72-year-old male who presents for evaluation after recent ER visit 6 days ago for and apparently self?Limited experience of bright red blood per rectum. Patient reports 6-8 episodes prior to his evaluation at the ER where he was confirmed to have normal CT imaging as well as normal laboratories. He does not appear to be symptomatic from anemia and instead attributes his reported fatigue to a diagnosis of sleep apnea. As above, he confirms that he has had no further episodes of this bleeding since his return home from the hospital. Significantly, he does have a history of diverticulitis some 25 years ago but has not had recurrence since that time. His last colonoscopy, performed 5.5 years ago, simply confirm the presence of diverticulosis within the descending and sigmoid colon. I have shared with Mr. Apodaca that my differential for his bleeding would include diverticulosis versus angiodysplasia versus simple hemorrhoid bleeding. I have shared with him that I remain suspicious about possible hemorrhoid activity based on his reports of a dull ache . I have offered him exam with anoscopy today, but he wishes to defer further exam until we are able to obtain a colonoscopy as he figures he is due and does not tolerate discomfort well. At this I have suggested that we proceed with consent for possible endoscopic banding at the time of his scope if any hemorrhoids are identified and he is in agreement. Plan: Plan will be to complete diagnostic colonoscopy at first mutually agreeable date under local MAC. Pre-procedure prep discussed and paper instructions provided. Patient is also made aware that he will need to have a bobcat driver/labor with him the day of the procedure. I have examined the patient and the H&P has been reviewed. There are no clinical changes since date of exam. Patient confirms that he has had no further bleeding episodes. He also confirms that he completed a prep in anticipation of today's procedure. Lastly he reminds me that he does still have this ongoing ache in his lower bowel which she would like to have an answer for through today's procedure. We discussed possible hemorrhoid banding if deemed appropriate and other biopsy. He expresses understanding of this information and written consents were reviewed. Will now proceed to the endoscopy suite for planned diagnostic colonoscopy as discussed further above.
[2023-05-27 06:40] LABS: Bedside Glucose 141 mg/dL (74-106)
[2023-05-27 07:50] VITALS: BP 120/61; BP 132/53; PULSE 46; RESP 16; TEMP 36.2; O2SAT 98
[2023-05-27 07:55] VITALS: BP 132/53; BP 141/48; PULSE 47; RESP 16; O2SAT 97
--- NOTE | 2023-05-27 07:56 | OP.COLON_ITS ---
Patient Name: Reuben Apodaca Procedure Date: 05/27/2023 6:02 AM Date of : 1950 Age: 72 Procedure: Colonoscopy Indications: Lower abdominal pain, Rectal bleeding Providers: Wilfrido Trujillo MD Referring MD: Wilfrido Trujillo MD Medicines: See the Anesthesia note for documentation of the administered medications Patient Profile: Last Colonoscopy: 5 years ago. Complications: No immediate complications. Estimated blood loss: Minimal. Procedure: Pre-Anesthesia Assessment: - The heart rate, respiratory rate, oxygen saturations, blood pressure, adequacy of pulmonary ventilation, and response to care were monitored throughout the procedure. After I obtained informed consent, the scope was passed under direct vision. Throughout the procedure, the patient's blood pressure, pulse, and oxygen saturations were monitored continuously. The colonoscope was introduced through the anus with the intention of advancing to the cecum. The scope was advanced to the sigmoid colon before the procedure was aborted. Medications were not given. The colonoscopy was aborted due to multiple diverticula in the colon and a tortuous colon. Changing the patient to a supine position, using manual pressure, withdrawing and reinserting the scope and lavage did not allow for the successful completion of the procedure. The colonoscopy was unusually difficult due to multiple diverticula in the colon, poor bowel prep with stool present and a tortuous colon. The patient tolerated the procedure well. The quality of the bowel preparation was poor. Scope In: 6:39:16 AM Scope Withdrawal Time 0 hours 29 minutes 59 seconds Scope Out: 7:46:25 AM Total Procedure Duration Time 1 hour 7 minutes 9 seconds Findings: Enlarged prostate, No biopsies or other specimens were collected for this exam. Many small and large-mouthed diverticula were found in the sigmoid colon. No biopsies or other specimens were collected for this exam. The sigmoid colon was moderately tortuous. Advancing the scope required changing the patient to a supine position and withdrawing and reinserting the scope. No biopsies or other specimens were collected for this exam. A diffuse area of mildly erythematous mucosa was found in the rectum. Estimated blood loss was minimal. No additional abnormalities were found on retroflexion. Impression: - The procedure was aborted due to multiple diverticula in the colon and a tortuous colon. - Preparation of the colon was poor. - Diverticulosis in the sigmoid colon. No specimens collected. - Tortuous colon. No specimens collected. - Erythematous mucosa in the rectum. Recommendation: - Discharge patient to home (via wheelchair). - Low fiber diet today. - Continue present medications. - Await pathology results. - Repeat colonoscopy because the examination was incomplete. - Refer to a scallop raker in 1 week. Procedure Code(s): --- Professional --- 89038, 53, Colonoscopy, flexible; diagnostic, including collection of specimen(s) by brushing or washing, when performed (separate procedure) Diagnosis Code(s): --- Professional --- K62.89, Other specified diseases of anus and rectum R10.30, Lower abdominal pain, unspecified K62.5, Hemorrhage of anus and rectum K57.30, Diverticulosis of large intestine without perforation or abscess without bleeding Q43.8, Other specified congenital malformations of intestine CPT copyright 2021 [employer]. All rights reserved. The codes documented in this report are preliminary and upon conference planner review may be revised to meet current compliance requirements. Wilfrido Trujillo MD 05/27/2023 7:55:22 AM This report has been signed electronically. Number of Addenda: 0 Note Initiated On: 05/27/2023 6:02 AM
--- NOTE | 2023-05-27 07:56 | OP.CCLET_ITS ---
05/27/2023 Francisco Lee [address] [place] [address] Re : Colonoscopy procedure for Reuben Apodaca Dear Dr. Lee This procedure was performed on Saturday, May 27, 2023. My impressions and recommendations are as follows: Impressions : - The procedure was aborted due to multiple diverticula in the colon and a tortuous colon. - Preparation of the colon was poor. - Diverticulosis in the sigmoid colon. No specimens collected. - Tortuous colon. No specimens collected. - Erythematous mucosa in the rectum. Recommendations : - Discharge patient to home (via wheelchair). - Low fiber diet today. - Continue present medications. - Await pathology results. - Repeat colonoscopy because the examination was incomplete. - Refer to a heading machine operator in 1 week. My findings are described in the full procedure note, which is enclosed. If I can be of further assistance, please feel free to contact me at Doctor phone number(s): , Work: . Sincerely, Wilfrido Trujillo MD 05/27/2023 7:55:22 AM This report has been signed electronically.
[2023-05-27 08:00] VITALS: BP 132/53; BP 140/42; PULSE 42; RESP 16; O2SAT 98
[2023-05-27 08:05] VITALS: BP 132/53; BP 154/49; PULSE 44; RESP 16; TEMP 36.2; O2SAT 98
[2023-05-27 08:55] VITALS: BP 132/53
== END 2023-05-27 08:58 | disposition home or self-care (01) ==
LOC: EN 05:28 → AC 05:29
PROVIDERS: PCP Family Medicine; Referring Provider Surgery; Visit Provider Surgery
PROC: 0DJD8ZZ Inspection of Lower Intestinal Tract, Via Natural or Artificial Opening Endoscopic (ICD-10-PCS; CPT 45378; principal; 2023-05-27 06:25)
DX: Q43.8 Other specified congenital malformations of intestine (principal); E11.9 Type 2 diabetes mellitus without complications; K62.5 Hemorrhage of anus and rectum; I10 Essential (primary) hypertension; Z79.82 Long term (current) use of aspirin; Z79.899 Other long term (current) drug therapy; Z79.84 Long term (current) use of oral hypoglycemic drugs; K63.89 Other specified diseases of intestine
CPT/HCPCS: 45378; 82962; 88305; J7120

== ENCOUNTER → 2023-06-02 | Outpatient (CLI) | payer MEDICARE, SELFPAY ==
--- NOTE | 2023-06-02 07:57 | RAD_ITS ---
STUDY: BARIUM ENEMA. REASON FOR EXAM: Male, 72 years old. Severe diverticular disease FLUOROSCOPY TIME (if supplied): ( 2 minutes and 48 seconds ) minutes/seconds. 80.26 mGy. 15 images were obtained. TECHNIQUE: A compliance manager film was obtained. Following this, contrast was introduced retrograde through the rectum. The entire colon was opacified. COMPARISON: None. FINDINGS: There is evidence of extensive sigmoid diverticulosis with the redundancy of the sigmoid colon. Scattered diverticula are seen in the left hemicolon. A diverticulum is seen in the proximal ascending colon. There is no evidence of obstruction to the flow of contrast. RAD/Barium Enema No Air Cont IMPRESSION: Extensive sigmoid diverticulosis. No evidence of obstruction. Redundancy of the sigmoid colon. Electronically Signed: Jamie Kate MD at 9:58 EST ,
== END | disposition home or self-care (01) ==
LOC: RAD 07:49
PROVIDERS: PCP Family Medicine; Referring Provider Surgery; Visit Provider Surgery
DX: K57.90 Diverticulosis of intestine, part unspecified, without perforation or abscess without bleeding (principal)
CPT/HCPCS: 74270

== ENCOUNTER 2024-11-11 10:40 | Emergency (ER) | payer MEDICARE, SELFPAY ==
[2024-11-11 10:42] VITALS: BP 166/81; PULSE 53; RESP 14; TEMP 36.9; O2SAT 98; BMI 24.9
--- NOTE | 2024-11-11 10:55 | EDS_ITS ---
HPI History of Present Illness Chief Complaint: Flank Pain Detail of Chief Complaint: Right flank pain Informant: patient Narrative Narrative: Patient presents to the emergency department complaint of right-sided flank pain that started yesterday. He denies injury to his back. Initially he states that the pain was mild but then he had a hard time sleeping last night. Pain reminded him of when he passed kidney stones. Describes the pain is mostly right lower back that tends to radiate across to the left side of his back. He feels some aching in both hamstrings. He denies weakness to the extremities. Pain is not positional. He denies urinary symptoms. He said no fever. Said some mild nausea. Patient has history of diabetes and hypertension as well as history of kidney stones and diverticulitis. He has history of a discectomy about 30 years ago but cannot remember what level. [facility] Medical History (Updated 11/11/24 @ 13:[address] Abhay Jacome, DO) Wears glasses Alcohol use Diabetes Easy bruising Back pain Dietary restriction BiPAP (biphasic positive airway pressure) dependence Non-smoker Cardiology follow-up encounter History of stress test Hypertension H/O diverticulitis of colon Acute lower GI hemorrhage (~04/2023) Bicuspid aortic valve Home Medications ?Medication ?Instructions ?Recorded ?Last Taken ?Type amlodipine 10 mg tablet 10 mg PO DAILY 09/23/1411/12 History aspirin 81 mg chewable tablet 81 mg PO DAILY@0800 09/0409/22/14 History hydrochlorothiazide 12.5 mg capsule 12.5 mg PO DAILY 0 09/23/14 09/22/14 History lisinopril 40 mg tablet 20 mg PO QHS 09/23/14 History pravastatin 40 mg tablet 40 mg PO QHS 09/23/14 History celecoxib 100 mg capsule 100 mg PO DAILY 05/26/23 Unk nown History metformin 500 mg tablet 500 mg PO DAILY 05/26/23 Unk nown History metoprolol tartrate 50 mg tablet 50 mg PO BID 05/26/23 05/27/23 History trazodone 100 mg tablet 100 mg PO QHS 05/26/23 Unkno wn History cyclobenzaprine 10 mg tablet 10 mg PO TID PRN Muscle S pasm #20 11/11/24 Unknown Rx TABLETS hydrocodone-acetaminophen 5-325mg 1 tab PO Q4H PRN PRN Pain 2 days 11/11/24 Unknown Rx 5mg-325mg #10 TABLETS naproxen 500 mg tablet (Naprosyn) 500 mg PO BID PRN pa in #20 tabs 11/11/24 Unknown Rx Allergy/AdvReac Type Severity Reaction Status Date / Time tramadol (From [facility]) Allergy PT UNSURE Verified 11/11/24 10:44 OF REACTION Surgical History Hx of right cataract extraction Hx of left cataract extraction Hx of colonoscopy S/P heart valve repair Social History (Updated 05/05/23 @ 12:35 by Francesca Aiken LPN) Smoking Status: Never smoker alcohol intake: current alcohol intake frequency: holidays/special occasions only substance use type: does not use ROS ROS ED Review of Systems ROS Unobtainable: other Constitutional Constitutional ED: Reports lethargy; Denies chills, fever(s), sweats or weight loss Eyes Eyes: Denies blurry vision, change in vision or diplopia ENT ENT ED: Denies rhinorrhea or sore throat Cardiovascular Cardiovascular: Denies chest pain, orthopnea or racing heartbeat Respiratory/Chest Respiratory/Chest: Denies cough, dyspnea, dyspnea on exertion, orthopnea or sputum Gastrointestinal Gastrointestinal: Reports nausea; Denies abdominal pain, diarrhea or vomiting Genitourinary Genitourinary ED: Denies dysuria, hematuria or urinary frequency Musculoskeletal Musculoskeletal: Reports back pain; Denies arthralgias, myalgias or neck pain Integumentary Denies abscess, Abrasions or rash Neurologic Neurologic: Denies headache(s) or weakness Psychiatric Psychiatric: Denies anxiety, depression or suicidal thoughts Endocrine Endocrinology: Denies polydipsia, polyphagia or polyuria Hematologic/Lymphatic Hematologic/Lymphatic: Denies easy bleeding, easy bruising or lymphadenopathy Allergic/Immunologic Allergic/Immunologic ED: Denies mouth swelling, tongue swelling or urticaria EXAM Physical Exam Const Vital Signs: 11/11/24 10:42 11/11/24 12:58 Temperature 98.4 F Temperature Source Oral Pulse Rate 53 L 78 Respiratory Rate 14 18 Blood Pressure 166/81 H Blood Pressure Mean 109 Pulse Ox 98 99 Oxygen Delivery Method Room Air Positive well nourished and well developed General Appearance ED: well developed and NAD HEENT Reports TM's clear and moist mucous membranes normocephalic and atraumatic; Negative for trauma or tenderness Tympanic Membrane ED: Yes TM's clear Eyes PERRL and EOMs intact bilaterally General Eye ED: Negative for pale conjunctiva or scleral icterus Neck no lymphadenopathy, supple and no JVD General: Negative for tenderness Chest Wall inspection of chest normal and palpation of chest normal Chest: Negative for tenderness Resp normal respiratory effort and clear to auscultation bilaterally Effort and Inspection: Negative for respiratory distress or pain with movement Auscultation: Negative for rhonchi, wheezes or diminished lung sounds Cardio regular rate, regular rhythm, S1 normal heart sound, S2 normal heart sound and no murmurs Peripheral Pulses: pulses 2+ throughout GI normal to inspection, nondistended, normoactive bowel sounds, soft to palpation, non-tender, non-distended and no masses Back/Spine no thoracic nor lumbar tenderness Back/Spine Narrative: Mild CVA tenderness on the right. No tenderness over thoracic or lumbar spine. He has negative straight leg raises. Deep tendon reflexes plus 2 out of 4 right patella however difficult to obtain patellar reflex on the left. Patient states that nobody can ever obtain a good patellar reflex on him. At the patella and Achilles. He has normal L5 extension bilaterally. Normal sensation to light touch. Extremity normal to inspection General Extremety ED: Negative for edema General Extremity: Negative for edema Neuro oriented x3, CN's II-XII intact bilaterally, no sensory deficits noted and gait normal Sensorium / Orientation: awake, alert, oriented to person, oriented to place and oriented to time Motor Exam: strength 5/5 throughout and strength abnormal Psych mental status grossly normal Skin no rashes or lesions noted and no wounds MDM MDM MDM Narrative Medical decision making narrative: Patient presents with low back pain since yesterday that reminds him of kidney stone which he had years ago. He has had some achiness into both posterior hamstrings. Denies numbness or tingling in extremities. Denies loss of bowel or bladder function or weakness to the extremities. IV line established. CBC with differential obtained for white count of 8.2 with hemoglobin 15.6 and platelet count of 172. Chemistries were unremarkable. Urinalysis was negative for infection and no microscopic blood. CT flank obtained showed no evidence of urolithiasis. He did have 0.25 cm nonobstructing stone in the midpole of the right kidney. He had a 4.6 cm simple cyst lower pole of right kidney. He had diverticulosis but no evidence of diverticulitis. He also had a 2.1 x 1.2 cm uncomplicated fat-containing left inguinal hernia. While in department he was medicated with Toradol as well as morphine and Zofran and he had good pain relief. At this point suspect likely musculoskeletal spasm or musculoskeletal etiology for his back pain. Will write him for naproxen as well as Flexeril and a few [place] for pain. Refer to primary care physician for follow-up within next 3 to 5 days. Advised to return if worsening pain, weakness in extremities, change in bowel or bladder function, or condition should worsen anyway. Lab Data Attestation: I reviewed the patient's lab results. Labs: Laboratory Results - last 24 hr 11/11/24 11/11/24 11:13 11:33 WBC 8.2 RBC 5.26 Hgb 15.6 Hct 46.5 MCV 88.4 MCH 29.7 MCHC 33.5 RDW Std Deviation 42.3 RDW Coeff of Marisa 13.1 Plt Count 172 MPV 9.5 Immature Gran % (Auto) 0.200 Neut % (Auto) 76.6 H Lymph % (Auto) 16.0 L Citrus % (Auto) 6.2 Eos % (Auto) 0.5 Baso % (Auto) 0.5 Absolute Neuts (auto) 6.3 Absolute Lymphs (auto) 1.32 Nucleated RBC % 0 Sodium 137 Potassium 3.4 Chloride 99 Carbon Dioxide 25.5 Anion Gap 13 BUN 16 Creatinine 1.11 Estim Creat Clear Calc 60.29 Est GFR (MDRD) Non-Af 70 BUN/Creatinine Ratio 14.7 Glucose 158 H Calcium 9.7 Urine Color Yellow Urine Clarity Clear Urine pH 6.0 Ur Specific [place] 1.015 Urine Protein 100 H Urine Glucose (UA) Normal Urine Ketones Negative Urine Occult Blood 10 H Urine Nitrite Negative Urine Bilirubin Negative Urine Urobilinogen Normal Ur Leukocyte Esterase Negative Urine RBC 0 SEEN Urine WBC 0 SEEN Ur Squamous Epith Cells 0-5 SEEN Urine Bacteria 0 SEEN Urine Mucus 1+ Radiography Diagnostic Testing: Clinical Impression(s) from Imaging Studies Abdomen/Pelvis CT 11/11/24 11:20 IMPRESSION: There is a 0.25 cm nonobstructing stone in the midpole of the right kidney. There is a 4.6 cm simple cyst at the lower pole of the right kidney. There is colonic diverticulosis with no visible acute diverticulitis. There is a 2.1 x 1.2 cm uncomplicated fat containing left inguinal hernia. LI-RADS is not meant to be used in patients <18 years or patients with cirrhosis due to congenital hepatic fibrosis or due to vascular disorders, because these patients have a lower chance of developing HCC. Reading Location: [facility] Discharge Plan Triage Chief Complaint: Flank Pain ED Provider: Abhay Jacome Dx/Rx/DC Orders Clinical Impression: Back pain Instructions: ED Back Pain (Acute or Chronic) Prescriptions: New cyclobenzaprine 10 mg tablet 10 mg PO TID PRN (Reason: Muscle Spasm) Qty: 20 0RF hydrocodone-acetaminophen 5-325 mg tablet 1 tab PO Q4H PRN PRN (Reason: Pain) 2 Days Qty: 10 0RF naproxen [Naprosyn] 500 mg tablet 500 mg PO BID PRN (Reason: pain) Qty: 20 0RF No Action pravastatin 40 MG tablet 40 mg PO QHS Patient Comments: cholesterol amlodipine 10 MG tablet 10 mg PO DAILY Patient Comments: blood pressure hydrochlorothiazide 12.5 MG capsule 12.5 mg PO DAILY Patient Comments: diuretic aspirin 81 MG tablet,chewable 81 mg PO DAILY@0800 Patient Comments: anti-platelet lisinopril 40 MG tablet 20 mg PO QHS Patient Comments: blood pressure celecoxib 100 mg capsule 100 mg PO DAILY metoprolol tartrate 50 mg tablet 50 mg PO BID metformin 500 mg tablet 500 mg PO DAILY trazodone 100 mg tablet 100 mg PO QHS Primary Care Provider: Francisco Lee Referrals: Francisco Lee MD [Primary Care Provider] - 3-5 Days Print Language: [place] Disposition Disposition: Home, Self Care
--- NOTE | 2024-11-11 11:20 | CT_ITS ---
PROCEDURE: ABDOMEN/PELVIS WITHOUT CONT 11/11/2024 REASON FOR EXAM: RIGHT FLANK PAIN TECHNIQUE: Abdomen and pelvis CT without intravenous contrast. Noncontrast technique limits evaluation of the abdominal and pelvic viscera. Coronal and Sagittal reconstruction series were provided. One or more dose reduction techniques were used (e.g., Automated exposure control, adjustment of the mA and/or kV according to patient size, use of iterative reconstruction technique). PATIENT PREPARATION: Per protocol ORAL CONTRAST TYPE: None. DLP = 404.57 mGy-cm COMPARISON: None FINDINGS: Lung bases: Clear Liver: Unremarkable Gallbladder: Unremarkable Spleen: Unremarkable Pancreas: Unremarkable Adrenals: Unremarkable Kidneys: There is a 0.25 cm nonobstructing stone in the midpole of the right kidney. There is a 4.6 cm simple cyst at the lower pole of the right kidney. There is no visible ureteral stone or hydronephrosis. Bladder: Unremarkable Reproductive Organs: Unremarkable Bowel: There is a moderate stool load. There is diverticulosis throughout the distal descending and sigmoid colon with no definite acute diverticulitis. Appendix: Not demonstrated Lymph nodes: There is no pathologic adenopathy by size criteria. Vasculature: Atherosclerotic calcifications are noted. Peritoneum / Retroperitoneum: There is a 2.1 x 1.2 cm uncomplicated fat containing left inguinal hernia. Bones: Unremarkable CT/Abdomen/Pelvis without Cont IMPRESSION: There is a 0.25 cm nonobstructing stone in the midpole of the right kidney. There is a 4.6 cm simple cyst at the lower pole of the right kidney. There is colonic diverticulosis with no visible acute diverticulitis. There is a 2.1 x 1.2 cm uncomplicated fat containing left inguinal hernia. LI-RADS is not meant to be used in patients <18 years or patients with cirrhosi s due to congenital hepatic fibrosis or due to vascular disorders, because these patients have a lower chance of developing HC C. Reading Location: [facility]
[2024-11-11 11:27] LABS: Absolute Lymphocyte Count 1.32 X10^3/uL (0.83-4.51); Absolute Neutrophil Count 6.3 X10^3/uL (2.0-7.7); Basophil# 0.04 X10^3/uL; Basophil% 0.5 % (0-1); Eosinophil# 0.04 X10^3/uL; Eosinophils% 0.5 % (0-5); Hematocrit 46.5 % (40-54); Hemoglobin 15.6 g/dL (13.0-16.5); Lymphocyte # 1.32 X10^3/ul (0.83-4.51); Mean Corp Hgb Conc 33.5 g/dL (32-36); Mean Corpuscular Hgb 29.7 pg (27.0-32.0); Mean Corpuscular Volume 88.4 fL (80-94); Mean Platelet Vol. 9.5 fl (6.2-12.0); Monocyte# 0.51 X10^3/uL; Monocyte% 6.2 % (0-10); NRBC Flagged by Analyzer 0 % (0-5); Neutrophil # 6.31 X10^3/uL (2.7-7.7); Neutrophil % 76.6 % (47-70); Platelet Count 172 K/mm3 (150-450); RBC Distribution Width CV 13.1 % (11.6-14.6); RBC Distribution Width SD 42.3 fl (35.1-43.9); Red Blood Count 5.26 M/mm3 (4.6-6.2); White Blood Count 8.2 K/mm3 (4.4-11.0)
[2024-11-11 11:40] LABS: Bacteria 0 SEEN /hpf (None Seen); Red Blood Cells-Urine 0 SEEN /hpf (0-5); White Blood Cells 0 SEEN /hpf (0-5)
[2024-11-11 11:45] LABS: Color, Urine Yellow (Yellow); Glucose, Dipstick Normal (Normal); Ketone-Dipstick Negative (Negative); Leukocyte Esterase-Dipstick Negative /ul (Negative); Nitrite-Dipstick Negative (Negative); Occult Blood-Urine 10 /ul (Negative); Protein-Dipstick 100 mg/dl (Negative); Specific Gravity, Urine 1.015 (1.002-1.030); Urine Bilirubin Dipstick Negative (Negative); Urine Clarity Clear (Clear); Urine Urobilinogen Normal (Normal)
[2024-11-11 11:58] LABS: Anion Gap 13 (5-15); BUN 16 mg/dL (4-19); BUN/Creat Ratio 14.7 RATIO (10-20); Calcium,Total 9.7 mg/dL (7.6-11.0); Carbon Dioxide 25.5 mmol/L (21.0-32.0); Chloride 99 mmol/L (98-108); Creatinine, Serum 1.11 mg/dL (0.70-1.20); EST Glomerular Filtration Rate 70 (>60); Estimated Creatinine Clearance 60.29 ml/min (50-250); Glucose 158 mg/dL (70-99); Potassium 3.4 mmol/L (3.3-5.1); Sodium Level 137 mmol/L (133-145)
[2024-11-11 12:08] LABS: Mucous, Urine 1+ /hpf (<or=2+)
[2024-11-11 12:11] LABS: Squamous Epithelial Cells - UA 0-5 SEEN /hpf (0-5)
[2024-11-11] MEDS: Ketorolac 15 MG/ML Vial IV (12:18)
[2024-11-11] MEDS: Ondansetron 4 MG/2 ML Vial IV (12:18)
[2024-11-11] MEDS: Morphine 4 MG/ML Syringe IV (12:18)
[2024-11-11 12:58] VITALS: PULSE 78; RESP 18; O2SAT 99
[2024-11-11 13:36] VITALS: BP 127/74; PULSE 71; RESP 18; TEMP 36.6; O2SAT 98
== END 2024-11-11 13:37 | disposition home or self-care (01) ==
PROVIDERS: Emergency Provider Emergency Medicine; PCP Family Medicine; Visit Provider Emergency Medicine
DX: M54.50 Low back pain, unspecified (principal); E11.9 Type 2 diabetes mellitus without complications; N20.0 Calculus of kidney; I10 Essential (primary) hypertension; N28.1 Cyst of kidney, acquired; K40.90 Unilateral inguinal hernia, without obstruction or gangrene, not specified as recurrent; K57.30 Diverticulosis of large intestine without perforation or abscess without bleeding; Q23.81 Bicuspid aortic valve; Z95.2 Presence of prosthetic heart valve; Z87.19 Personal history of other diseases of the digestive system; Z79.82 Long term (current) use of aspirin; Z79.84 Long term (current) use of oral hypoglycemic drugs; Z87.442 Personal history of urinary calculi; Z79.899 Other long term (current) drug therapy
CPT/HCPCS: 74176; 80048; 81001; 85025; 96374; 96375; 99283; A4216; J2405

== ENCOUNTER 2025-05-24 11:13 | Emergency (ER) | payer MEDICARE, SELFPAY ==
[2025-05-24 11:13] VITALS: BP 121/69; PULSE 81; RESP 14; TEMP 36.6; O2SAT 98; BMI 24.5
[2025-05-24 11:32] VITALS: BP 115/68; BP 117/67; BP 123/71; PULSE 79; PULSE 80; PULSE 88
--- NOTE | 2025-05-24 11:32 | EKG12_ITS ---
Test Reason : SYNCOPE Blood Pressure : */* mmHG Vent. Rate : 78 BPM Atrial Rate : 78 BPM P-R Int : 218 ms QRS Dur : 110 ms QT Int : 376 ms P-R-T Axes : 96 -24 49 degrees QTcB Int : 428 ms Sinus rhythm with 1st degree A-V block Incomplete right bundle branch block Nonspecific ST abnormality Abnormal ECG Confirmed by Wilfrido Alejo ([id number]), deputy editor in chief WILVER CALLE ([id number]) on 05/25/2025 8:45:01 AM Referred By: Confirmed By: Wilfrido Alejo
--- NOTE | 2025-05-24 11:42 | EDS_ITS ---
HPI History of Present Illness Chief Complaint: Syncope Narrative Narrative: Chief complaint and HPI: 74-year-old male with past medical history of DM2, HTN, HLD, history of TAVR presents for evaluation of syncope. Patient states he has had cold-like symptoms since the weekend including intermittent fevers, congestion, cough. Patient states that yesterday evening he developed abdominal pain with nausea. States he felt that he needed to vomit. He states he got out of bed and shortly within a couple steps felt lightheaded as if he were going to pass out. He lowered himself to the ground. He then states he had a syncopal episode of several seconds. He did hit his face on the ground. He states he then got up and walked to the bathroom in which he was lowering his self on the toilet and again felt lightheaded and as if he was going to pass out. States he passed out for several seconds. He endorses some left anterior rib pain from the syncopal episode as well as facial contusions. Denies any nausea, vomiting, shortness of breath, abdominal pain, extremity pain, neck pain, back pain at this time. Review of systems: See HPI Medications: As listed on the chart Allergies: As listed on the chart PFSH: Per chart Vital signs: As listed on the chart. Reviewed. Physical exam: Gen: A&O x3, NAD Head: Normocephalic, atraumatic Eyes: No sclera icterus, conjunctiva clear, PERRL, EOMI ENT: TMs clear BL, moist mucous membranes, posterior oropharynx unremarkable, uvula midline, tonsils not enlarged, no tonsillar exudates, a small area of ecchymosis to the nose and chin, no significant facial tenderness, no nasal septal hematoma, + congestion Neck: Trachea midline, Full ROM, nontender, no meningismus, no lymphadenopathy CV: RRR, no murmurs, mild tenderness to palpation of the left anterior ribs around 5//6, previous cardiac incision healed well Resp: Lungs CTA BL, no w/r/c GI: Abd soft, non-distended, non-tender, no r/r/g Musc: Full ROM, no deformity, no spinal TTP, no sherri step-offs Skin: Warm, dry, intact without rash Neuro: Alert, oriented, grossly intact, sensation intact Psych: Cooperative, appropriate mood and affect PFSH PFSH Medical History Wears glasses Alcohol use Diabetes Easy bruising Back pain Dietary restriction BiPAP (biphasic positive airway pressure) dependence Non-smoker Cardiology follow-up encounter History of stress test Hypertension H/O diverticulitis of colon Acute lower GI hemorrhage (~04/2023) Bicuspid aortic valve Home Medications ?Medication ?Instructions ?Recorded ?Last Taken ?Type amlodipine 10 mg tablet 10 mg PO DAILY 09/23/1411/12 History aspirin 81 mg chewable tablet 81 mg PO DAILY@0800 09/0409/22/14 History hydrochlorothiazide 12.5 mg capsule 12.5 mg PO DAILY 0 09/23/14 09/22/14 History lisinopril 40 mg tablet 20 mg PO QHS 09/23/14 History pravastatin 40 mg tablet 40 mg PO QHS 09/23/14 History celecoxib 100 mg capsule 100 mg PO DAILY 05/26/23 Unk nown History metformin 500 mg tablet 500 mg PO DAILY 05/26/23 Unk nown History metoprolol tartrate 50 mg tablet 50 mg PO BID 05/26/23 05/27/23 History trazodone 100 mg tablet 100 mg PO QHS 05/26/23 Unkno wn History cyclobenzaprine 10 mg tablet 10 mg PO TID PRN Muscle S pasm #20 11/11/24 Unknown Rx TABLETS hydrocodone-acetaminophen 5-325mg 1 tab PO Q4H PRN PRN Pain 2 days 11/11/24 Unknown Rx 5mg-325mg #10 TABLETS naproxen 500 mg tablet (Naprosyn) 500 mg PO BID PRN pa in #20 tabs 11/11/24 Unkn own Rx Allergy/AdvReac Type Severity Reaction Status Date / Time tramadol (From [facility]) Allergy PT UNSURE Verified 05/24/25 11:17 OF REACTION Surgical History Hx of right cataract extraction Hx of left cataract extraction Hx of colonoscopy S/P heart valve repair Social History (Updated 05/05/23 @ 12:35 by Francesca Aiken LPN) Smoking Status: Never smoker alcohol intake: current alcohol intake frequency: holidays/special occasions only substance use type: does not use EXAM Physical Exam Const Vital Signs: 05/24/25 11:13 05/24/25 11:32 05/24/25 11:58 Temperature 98 F Temperature Source Temporal Pulse Rate 81 Pulse Rate [Lying] 80 Pulse Rate [Sitting (for 1 minute prior to obtaining)] 79 Pulse Rate [Standing (for 1 minute prior to obtaining)] 88 Respiratory Rate 14 Respiratory Effort Normal Non-Labored Respiratory Pattern Normal Blood Pressure 121/69 H Blood Pressure [Lying] 117/67 Blood Pressure [Sitting (for 1 minute prior to obtaining)] 123/71 H Blood Pressure [Standing (for 1 minute prior to obtaining)] 115/68 Blood Pressure Mean 86 Blood Pressure Mean [Lying] 83 Blood Pressure Mean [Sitting (for 1 minute prior to obtaining)] 88 Blood Pressure Mean [Standing (for 1 minute prior to obtaining)] 83 Pulse Ox 98 Oxygen Delivery Method Room Air 05/24/25 13:00 Temperature Temperature Source Pulse Rate 72 Pulse Rate [Lying] Pulse Rate [Sitting (for 1 minute prior to obtaining)] Pulse Rate [Standing (for 1 minute prior to obtaining)] Respiratory Rate 22 H Respiratory Effort Respiratory Pattern Blood Pressure 111/65 Blood Pressure [Lying] Blood Pressure [Sitting (for 1 minute prior to obtaining)] Blood Pressure [Standing (for 1 minute prior to obtaining)] Blood Pressure Mean 80 Blood Pressure Mean [Lying] Blood Pressure Mean [Sitting (for 1 minute prior to obtaining)] Blood Pressure Mean [Standing (for 1 minute prior to obtaining)] Pulse Ox 99 Oxygen Delivery Method MDM MDM MDM Narrative Medical decision making narrative: 74-year-old male with past medical history of DM2, HTN, HLD, history of TAVR presents for evaluation of syncope. Patient states he has had cold-like symptoms since the weekend including intermittent fevers, congestion, cough. Patient states that yesterday evening he developed abdominal pain with nausea. States he felt that he needed to vomit. He states he got out of bed and then had 2 syncopal episodes. He did have prodromal symptoms. He endorses some facial contusions and left anterior rib pain from the syncopal episodes. On presentation, patient no acute distress. Vitals are stable other than mild hypertension. Afebrile. See physical exam findings. Differential diagnosis includes but is not limited to vasovagal syncope, orthostatic hypotension, dehydration, electrolyte abnormality, viral illness, pneumonia, rib fracture, contusion, facial fracture, suspect less likely intracranial trauma or ACS/arrhythmia. NS bolus ordered. Syncope/trauma workup ordered. Orthostatic vitals negative. CBC unremarkable except for thrombocytopenia. This appears new from recent labs however patient has had thrombocytopenia in the past. CMP shows renal insufficiency with a BUN of 20 and a creatinine of 1.35. This is new from recent labs however patient had renal insufficiency in the past. Patient receiving fluids. Will repeat BMP after hydration. Troponin unremarkable. CT of the head without any acute abnormalities. CT of the face with no acute facial bone fractures. Patient has left frontal soft tissue edema. Nonspecific focal lytic lesions subadjacent to soft tissue edema. Chest x-ray with previous surgeries visualized. No pneumonia, pneumothorax, effusion. No fracture. Patient positive for influenza A. He is outside the window for Tamiflu given that his symptoms started over the weekend. Repeat BMP shows improvement in BUN. Mild improvement in renal insufficiency. Patient syncope likely secondary to vasovagal syncope with dehydration secondary to influenza A infection. UA negative for UTI. Patient ambulated in the emergency department without difficulty. Patient was updated of all the results. Patient stable to discharge home. Recommended drinking plenty of fluids. Will get repeat BMP in the next 2 days to assess for improving renal insufficiency. Patient confirmed understand the plan. Return precautions explained. Follow-up with primary care physician EKG: Interpreted by me/EM physician: EKG shows sinus rhythm with first-degree AV block. No ST elevation. Heart rate 78. Impression: 1. Influenza A infection 2. Dehydration with renal insufficiency 3. Syncope Lab Data Labs: Laboratory Results - last 24 hr 05/24/25 05/24/25 05/24/25 11:56 13:09 13:24 WBC 8.1 RBC 5.12 Hgb 14.8 Hct 44.1 MCV 86.1 MCH 28.9 MCHC 33.6 RDW Std Deviation 40.3 RDW Coeff of Marisa 13.0 Plt Count 119 L MPV 8.9 Immature Gran % (Auto) 0.700 Neut % (Auto) 77.6 H Lymph % (Auto) 11.0 L [place] % (Auto) 10.0 Eos % (Auto) 0.2 Baso % (Auto) 0.5 Absolute Neuts (auto) 6.3 Absolute Lymphs (auto) 0.89 Nucleated RBC % 0 Sodium 136 135 Potassium 3.9 4.1 Chloride 98 101 Carbon Dioxide 24.3 22.9 Anion Gap 13 11 BUN 20 H 18 Creatinine 1.35 H 1.32 H Estim Creat Clear Calc 49.57 L 50.69 Est GFR (MDRD) Non-Af 55 L 57 L BUN/Creatinine Ratio 14.6 13.9 Glucose 278 H 204 H Calcium 9.0 8.1 Total Bilirubin 0.77 AST 16 ALT 13 Alkaline Phosphatase 72 Troponin T High Sens 18 Total Protein 6.5 Albumin 4.0 Globulin 2.6 Albumin/Globulin Ratio 1.5 Urine Color Yellow Urine Clarity Clear Urine pH 6.0 Ur Specific [place] 1.020 Urine Protein 30 H Urine Glucose (UA) 100 H Urine Ketones Negative Urine Occult Blood 25 H Urine Nitrite Negative Urine Bilirubin Negative Urine Urobilinogen 1 H Ur Leukocyte Esterase Negative Urine RBC 0 SEEN Urine WBC 0 SEEN Ur Squamous Epith Cells 0 SEEN Urine Bacteria 0 SEEN Urine Mucus 0 SEEN Radiography Diagnostic Testing: Clinical Impression(s) from Imaging Studies Brain CT 05/24/25 11:[address]: [address] evidence of acute intracranial hemorrhage, transcortical infarct, or significant mass effect. 2. No acute facial bone fractures. 3. Left frontal soft tissue edema. Nonspecific focal lytic lesions subjacent to soft tissue edema. Reading Location: [facility] Facial/Sinus 05/24/25 11:[address]: 1[address] evidence of acute intracranial hemorrhage, transcortical infarct, or significant mass effect. 2. No acute facial bone fractures. 3. Left frontal soft tissue edema. Nonspecific focal lytic lesions subjacent to soft tissue edema. Reading Location: [facility] Chest X-Ray 05/24/25 12:13 IMPRESSION: No acute process is identified in the chest. Reading Location: [facility] Discharge Plan Triage Chief Complaint: Syncope ED Provider: Montez Santiago Dx/Rx/DC Orders Prescriptions: No Action pravastatin 40 MG tablet 40 mg PO QHS Patient Comments: cholesterol amlodipine 10 MG tablet 10 mg PO DAILY Patient Comments: blood pressure hydrochlorothiazide 12.5 MG capsule 12.5 mg PO DAILY Patient Comments: diuretic aspirin 81 MG tablet,chewable 81 mg PO DAILY@0800 Patient Comments: anti-platelet lisinopril 40 MG tablet 20 mg PO QHS Patient Comments: blood pressure celecoxib 100 mg capsule 100 mg PO DAILY metoprolol tartrate 50 mg tablet 50 mg PO BID metformin 500 mg tablet 500 mg PO DAILY trazodone 100 mg tablet 100 mg PO QHS cyclobenzaprine 10 mg tablet 10 mg PO TID PRN (Reason: Muscle Spasm) Qty: 20 0RF hydrocodone-acetaminophen 5-325 mg tablet 1 tab PO Q4H PRN PRN (Reason: Pain) 2 Days Qty: 10 0RF naproxen [Naprosyn] 500 mg tablet 500 mg PO BID PRN (Reason: pain) Qty: 20 0RF Primary Care Provider: Francisco Lee Referrals: Francisco Lee MD [Primary Care Provider, Family Practice] Print Language: Vietnamese
--- NOTE | 2025-05-24 11:55 | CT_ITS ---
PROCEDURE: BRAIN/HEAD WITHOUT CONTRAST; SINUS/FACIAL BONE 05/24/2025 REASON FOR EXAM: SYNCOPE; SYNCOPE, FACIAL CONTUSION TECHNIQUE: Procedure Code: CTBR; CTSI Modality: CT Procedure: BRAIN/HEAD WITHOUT CONTRAST; SINUS/FACIAL BONE Coronal and Sagittal reconstruction series were provided. One or more dose reduction techniques were used (e.g., Automated exposure control, adjustment of the mA and/or kV according to patient size, use of iterative reconstruction technique. RADIATION DOSE SUMMARY: DLP: 1461.10 mGycm COMPARISON: None available. FINDINGS: CT HEAD: No acute hemorrhage. No acute transcortical infarct. Patchy nonspecific periventricular and subcortical white matter hypodensities compatible with chronic microvascular ischemic changes. There are a few nonspecific punctate calcifications in the subarachnoid spaces which may reflect prior infection. No significant mass effect or brain herniation. Global cerebral volume loss. No hydrocephalus. No extra-axial fluid collection.The basal cisterns are patent. The calvarium appears intact. Atherosclerotic calcification of the carotid siphons and intradural vertebral arteries. CT FACIAL BONES: Beam hardening artifact from dental amalgam obscures adjacent anatomy, limiting assessment. There is no evidence of acute displaced facial bone fracture. There is left frontal soft tissue edema. There is a nonspecific subjacent focal lytic lesion measuring 1.1 x 0.5 cm (series 2, image 59). The bony orbits appear intact. The orbital contents appear within normal limits. Bilateral ocular lens replacements. Scattered paranasal mucosal thickening. The nasal cavity is unobstructed. Right nasal septal deviation. The mastoid air cells and middle ear cavities are overall well aerated. CT/Brain/Head without Contrast IMPRESSION: 1. No CT evidence of acute intracranial hemorrhage, transcortical infarct, or s ignificant mass effect. 2. No acute facial bone fractures. 3. Left frontal soft tissue edema. Nonspecific focal lytic lesions subjacent t o soft tissue edema. Reading Location: [id number]
[2025-05-24] MEDS: 0.9% Normal Saline (1000mL) 1,000 ML 1000 ML IV (11:58)
[2025-05-24 12:02] LABS: Hematocrit 44.1 % (40-54); Hemoglobin 14.8 g/dL (13.0-16.5); Immature Granulocytes Count 0.060 X10^3/uL (0.0-0.0); Mean Corp Hgb Conc 33.6 g/dL (32-36); Mean Corpuscular Volume 86.1 fL (80-94); Mean Platelet Vol. 8.9 fl (6.2-12.0); NRBC Flagged by Analyzer 0 % (0-5); Platelet Count 119 K/mm3 (150-450); RBC Distribution Width CV 13.0 % (11.6-14.6); RBC Distribution Width SD 40.3 fl (35.1-43.9); Red Blood Count 5.12 M/mm3 (4.6-6.2); White Blood Count 8.1 K/mm3 (4.4-11.0)
--- NOTE | 2025-05-24 12:13 | RAD_ITS ---
PROCEDURE: CHEST PA AND LATERAL 05/24/2025 REASON FOR EXAM: SYNCOPE TECHNIQUE: Procedure Code: RADCXR Modality: DX Procedure: CHEST PA AND LATERAL COMPARISON: None FINDINGS: There is a right-sided device in position. Sternotomy wires and a prosthetic heart valve are noted. Heart size is within normal limits. Aortic calcifications are visible. There is no focal infiltrate or consolidation. There is no pneumothorax or effusion. There is no visible acute bony abnormality. RAD/Chest PA and Lateral IMPRESSION: No acute process is identified in the chest. Reading Location: [facility]
[2025-05-24 12:30] LABS: Troponin T High Sensitivity 18 ng/L (<=22)
[2025-05-24 12:32] LABS: AST(SGOT) 16 U/L (<=37); Alanine Aminotransfer ALT/SGPT 13 U/L (<=46); Albumin, Serum 4.0 g/dL (3.4-4.8); Alkaline Phosphatase 72 U/L (40-129); Anion Gap 13 (5-15); BUN 20 mg/dL (4-19); BUN/Creat Ratio 14.6 RATIO (10-20); Calcium,Total 9.0 mg/dL (7.6-11.0); Carbon Dioxide 24.3 mmol/L (21.0-32.0); Chloride 98 mmol/L (98-108); Estimated Creatinine Clearance 49.57 ml/min (50-250); Globulin 2.6 g/dL (2.2-4.2); Glucose 278 mg/dL (70-99); Potassium 3.9 mmol/L (3.3-5.1)
[2025-05-24 13:00] VITALS: BP 111/65; PULSE 72; RESP 22; O2SAT 99
[2025-05-24 13:29] LABS: Mucous, Urine 0 SEEN /hpf (<or=2+); Red Blood Cells-Urine 0 SEEN /hpf (0-5); Squamous Epithelial Cells - UA 0 SEEN /hpf (0-5)
[2025-05-24 13:30] LABS: Color, Urine Yellow (Yellow); Glucose, Dipstick 100 mg/dl (Normal); Ketone-Dipstick Negative (Negative); Leukocyte Esterase-Dipstick Negative /ul (Negative); Nitrite-Dipstick Negative (Negative); Occult Blood-Urine 25 /ul (Negative); Protein-Dipstick 30 mg/dl (Negative); Specific Gravity, Urine 1.020 (1.002-1.030); Urine Bilirubin Dipstick Negative (Negative)
[2025-05-24 13:37] LABS: Anion Gap 11 (5-15); BUN 18 mg/dL (4-19); BUN/Creat Ratio 13.9 RATIO (10-20); Calcium,Total 8.1 mg/dL (7.6-11.0); Carbon Dioxide 22.9 mmol/L (21.0-32.0); Chloride 101 mmol/L (98-108); Estimated Creatinine Clearance 50.69 ml/min (50-250); Glucose 204 mg/dL (70-99); Potassium 4.1 mmol/L (3.3-5.1)
[2025-05-24 14:12] VITALS: BP 111/65; PULSE 72; RESP 22; TEMP 37; O2SAT 99
== END 2025-05-24 14:13 | disposition home or self-care (01) ==
PROVIDERS: Emergency Provider Surgery; PCP Family Medicine; Visit Provider Surgery
DX: J10.1 Influenza due to other identified influenza virus with other respiratory manifestations (principal); E11.9 Type 2 diabetes mellitus without complications; R55 Syncope and collapse; S00.33XA Contusion of nose, initial encounter; S00.83XA Contusion of other part of head, initial encounter; R07.81 Pleurodynia; W19.XXXA Unspecified fall, initial encounter; E86.0 Dehydration; N28.9 Disorder of kidney and ureter, unspecified; D69.6 Thrombocytopenia, unspecified; I10 Essential (primary) hypertension; I44.0 Atrioventricular block, first degree; E78.5 Hyperlipidemia, unspecified; Q23.81 Bicuspid aortic valve; Z95.2 Presence of prosthetic heart valve; Z79.82 Long term (current) use of aspirin; Z79.84 Long term (current) use of oral hypoglycemic drugs; Z79.899 Other long term (current) drug therapy
CPT/HCPCS: 70450; 70486; 71046; 80048; 80053; 81001; 84484; 85025; 87631; 93005; 96360; 99284; A4216

== ENCOUNTER 2025-06-02 09:30 | Outpatient (RCR) | payer MEDICARE, SELFPAY ==
--- NOTE | 2025-05-11 09:08 | HP.PTEVAL_ITS ---
Patient's Visit Information Visit Information Visit Information: YOLI HOLCOMB Jr. is a 74 year old M referred to Physical Therapy by JACOB MULLIGAN with a diagnosis of B tear of meniscus knees. Date of Evaluation: 05/11/25 Physical Therapist: Jeff Arriaga, DPT, OCS, CSCS Visit Plan Frequency: 2-3x /Week Duration: 2-4 Weeks Plan: 3x/week for 2-4 weeks IE HEP quad streetch adn HS stretch supinee 30" 5x while away on trip, HO given In clinic, please do LE machines and ensure completeeness of hips and knees and core with appropriate challenge. Teach hip stabs and core on mat with pics lumbar and thoracic rotations strenth and ROM to prepare for golf may review upper body machine sif patient requires. Subjective Subjective: [facility] ortho low seent him over. 2 yrs ago jumped into 4 foot pool and bottomed out and jammeed both knees and hard to walk, subsided over time but felt unstable. Eventually had MRI on both knees and has MRI in R kneee and torn meniscus in B knees. Going down steps is painful. Up is fine. Irregular surfaces feel unstable and pain 1/10. Does not trust knees though adn feels like they might give out. Pain is meedial when present B. Got injections in B knees and this is the third and they don't help as much anymore. Knees have never given out. Play golf all summer now getting back into the gym. In thee gym alot when it is not golf season. Spends time on all the machines leg press, knee ext and flexion and hip abd but has not done them alot. This became an issue when he stopped lifting. Sleep is OK with knees. Activities pretty normal just don't trust knees. Pain B knees: Pain Intensity (Out of 10): 0 Pain Intensity Range: 0 and 1 Objective Objective: walks into PT without antlagia I today. Transfer chair and table I. Steps reciprocal without rail, no discomfort today. AROM B knees is WFL 0-138 with some pain eend range flexion L > R. hip aROM WFL, tightness in HS at -25 90/90 and quads with stretching before end range knee flexion in prone. anklees WFL aROM. reflexes 0/3 B patella adn achilles Sensation WNL to gross light touch. strength core 4-/5, hip rotations 3/5, hip abd 4-, ext 3+ L and 4- R and flexion 4- B with contralalteeral ir B. - valgus and varus, - bounce home, - lachmans. knee streength 4+ knee ext with creptius in R, 4 in HS B, ankles 4+ B. Balance/Special Test Scores Lower Extremity Functional Score: 68 Goals Goal 1:: I appropriate HEP to limit future probleems(gym LE, mat core and hip, s tretches uppeer leegs, golf rotations.) to minimize future problems. Goal Time Frame: 2-4 Weeks Goal 2:: Pain in knees 0/10 and 99% better. Goal Time Frame: 2-4 Weeks Rehabilitation Potential Physical Therapy Diagnosis: weakness in core and hips and disocmfort causing limited activity comfortably on golf course. Rehabilitation Potential: Good Anticipated Interventions Patient/Client Instruction: Educate patient on: Condition and Plan of Care For the Purpose of:: To decrease pain, To improve nutrient delivery to tissue, To improve muscle performance and motor function and To increase tolerance to activity/condition/position Therapeutic Exercise to Include: Strength training, Flexibilty training, Passive ROM and Active ROM For the Purpose of:: To decrease pain, To increase ROM, To improve muscle performance and motor function, To increase tolerance to activity/condition/position and To improve gait and locomotor functions Text: Thank you for the opportunity to evaluate your patient. For Medicare and Medicare HMO plans, please review the plan of care and approve it. It will need to be FAXED BACK to us at [phone] for Medicare purposes. For Medicare only, by signing this I certify the plan of care. Please let me know if there are questions or concerns regarding this plan of care. Physician Signature: Date:
--- NOTE | 2025-06-02 10:16 | HP.PTDCSUM_ITS ---
Discharge Summary D/C summary: It has been my pleasure to treat YOLI HOLCOMB Jr. referred by JACOB MULLIGAN, with the diagnosis of B tear of meniscus knees for a total of 5 visit(s). Discharge Date: 06/02/25 Please see the following information for a summary of their discharge status. Subjective Subjective: Had flu last weeek and passeed out. Went to eR. Got IV and is OK. Knees feel OK since injhections. Pain B knees: Pain Intensity (Out of 10): 0 Overall Improvement % Improvement: 90 Objective Objective/Function: walking without antalgia very well today. No concerns and no pain. Toleerating ex wella dn can continue on his won. Goals Goal 1:: I appropriate HEP to limit future probleems(gym LE, mat core and hip, stretches uppeer leegs, golf rotations.) to minimize future problems. Goal Progress: Goal Met Goal 2:: Pain in knees 0/10 and 99% better. Goal Progress: Goal Met [facility] injeection Plan Plan: d/c to gyma dn home ex. D/C Information d/c sentence: If there are questions or concerns regarding this patient's physical therapy, please feel free to call me at [phone]. Thank you for the referral of this patient. Sincerely, Jeff Arriaga, DPT, OCS, CSCS Balance/Gait/Functional tests Balance/Special Test Scores Lower Extremity Functional Score: 72 Improvement % Improvement: 90
== END 2025-06-02 19:00 | disposition home or self-care (01) ==
LOC: PT 09:30
PROVIDERS: PCP Family Medicine
DX: S83.206D Unspecified tear of unspecified meniscus, current injury, right knee, subsequent encounter (principal); S83.207D Unspecified tear of unspecified meniscus, current injury, left knee, subsequent encounter; M25.361 Other instability, right knee; M25.362 Other instability, left knee
CPT/HCPCS: 97110; 97161; 97164